=== PATIENT | female | born 1990 | race Caucasian/White ===

== ENCOUNTER 2022-04-03 19:58 | Emergency (ER) | payer BC, OTHER ==
--- NOTE | 2022-04-03 21:13 | ERPHSYRPT ---
- History of Present Illness Time Seen by Provider: 04/03/22 21:06 Source: patient, family Exam Limitations: no limitations Patient Subjective Stated Complaint: pt has moved from another city, has run out of meds and could not get in to a physician. need to get her affexor script because she has not taken taken any since the because she ran out. Triage Nursing Assessment: p is alert and oriented, states she has no suicidal or homicidal thoughts but just cannot turn her ginny off. states she feels anxious and needs her meds. Physician History: Patient is a 32-year-old white female who presents with a complaint of depression. She recently moved to this area from [facility] August 2020 she had been on Effexor 150 mg once daily she said this was very effective for her. She ran out of the Effexor 2 days ago and has had increasing problems since. She denies any suicidal or homicidal ideation. Timing/Duration: day(s) (4) Severity of Symptoms-Max: moderate Severity of Symptoms-Current: moderate Context related to: living circumstances Associated Symptoms: depressed Previous symptoms: same symptoms as today Allergies/Adverse Reactions: naproxen Allergy (Severe, Verified 09/24/13 11:34) "deadly" acetaminophen [From Darvocet-N 100] Allergy (Mild, Verified 09/24/13 11:32) codeine Allergy (Mild, Verified 09/24/13 11:32) hydromorphone HCl [From Dilaudid] Allergy (Mild, Verified 09/24/13 11:33) morphine Allergy (Mild, Verified 09/24/13 11:34) ondansetron HCl [From Zofran] Allergy (Mild, Verified 09/24/13 11:31) propoxyphene napsylate [From Darvocet-N 100] Allergy (Mild, Verified 09/24/13 11:32) sumatriptan [From Imitrex] Allergy (Mild, Verified 09/24/13 11:33) sumatriptan succinate [From Imitrex] Allergy (Mild, Verified 09/24/13 11:33) topiramate [From Topamax] Allergy (Mild, Verified 09/24/13 11:34) pregabalin [From Lyrica] Allergy (Verified 04/03/22 20:39) Home Medications: Citalopram Hydrobromide [ceLEXa] 40 mg PO DAILY 09/24/13 [History] Diazepam 5 mg [Valium 5 MG] 5 mg PO BID 09/24/13 [History] Dicyclomine HCl [Bentyl] 10 mg PO TID 09/24/13 [History] Divalproex Sodium [Depakote] 250 mg PO DAILY 09/24/13 [History] Metoprolol Tartrate 25 mg [Lopressor 25MG Tab] 25 mg PO BID 09/24/13 [History] Hx Tetanus, Diphtheria Vaccination/Date Given: No Hx Influenza Vaccination/Date Given: No Hx Pneumococcal Vaccination/Date Given: No Immunizations Up to Date: No Travel Risk - International Travel Have you traveled outside of the country in past 3 weeks: No - Coronavirus Screening Are you exhibiting any of the following symptoms?: No Close contact with a COVID-19 positive Pt in past 14-21 Days: No - Vaccine Status Have you recieved a Covid-19 vaccination: No - Past Medical History Pertinent Past Medical History: Yes Neurological History: Seizures Cardiac History: Other Musculoskeletal History: Fibromyalgia, Rheumatoid Arthritis Psycho-Social History: Anxiety, Depression, Panic Disorder Other Medical History: STILLS disease. mitral valve prolapse, with arrythmia. migraines. 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, epilepsy - Past Surgical History Past Surgical History: Yes Other Surgical History: csection, tonsillectomy - Social History Smoking Status: Never smoker Exposure to second hand smoke: No Drug Use: marijuana Patient Lives Alone: Yes - Female History Hx Last Menstrual Period: 04/03/22 Hx Now: No - Review of Systems Constitutional: No Fever, No Chills Eyes: No Symptoms Ears, Nose, & Throat: No Symptoms Respiratory: No Cough, No Dyspnea Cardiac: No Chest Pain, No Edema, No Syncope Abdominal/Gastrointestinal: No Abdominal Pain, No Nausea, No Vomiting, No Diarrhea Genitourinary Symptoms: No Dysuria Musculoskeletal: No Back Pain, No Neck Pain Skin: No Rash Neurological: No Dizziness, No Focal Weakness, No Sensory Changes Psychological: Depression Endocrine: No Symptoms All Other Systems: Reviewed and Negative - Nursing Vital Signs Nursing Vital Signs: Initial Vital Signs Temperature 97.8 F 04/03/22 20:30 Pulse Rate 105 H 04/03/22 20:30 Respiratory Rate 20 04/03/22 20:30 Blood Pressure 121/90 04/03/22 20:30 O2 Sat by Pulse Oximetry 97 04/03/22 20:30 Pain Scale Pain Intensity 5 - Physical Exam General Appearance: mild distress Eyes, Ears, Nose, Throat Exam: normal ENT inspection, moist mucous membranes Neck Exam: normal inspection, non-tender, supple Respiratory Exam: normal breath sounds, lungs clear, No respiratory distress Cardiovascular Exam: regular rate/rhythm, No edema Gastrointestinal/Abdominal Exam: soft, No tenderness, No distention Extremities Exam: normal inspection, normal range of motion, No evidence of injury, No edema Current Suicidality: denies suicide plan Neurological Exam: alert, fire chief's aide II-XII nml as tested, oriented x 3 Skin Exam: normal color, warm, dry, No rash SpO2 Interpretation: normal SpO2: 97 O2 Delivery: Room Air - Course Nursing assessment & vital signs reviewed: Yes - Progress Progress: unchanged - Departure Departure Disposition: Home Clinical Impression: Depression Condition: Stable Critical Care Time: No Referrals: SHALINI MALAVE ONLINE MARKETING COORDINATOR [Primary Care Provider] - Follow up/PCP as directed Additional Instructions: Find a primary care physician. Prescriptions: Venlafaxine HCl [Venlafaxine HCl ER] 150 mg PO DAILY 30 Days #30 cap
[2022-04-03 21:20] VITALS: BP 142/100; PULSE 107; O2SAT 98
== END 2022-04-03 21:26 | disposition home or self-care (01) ==
LOC: ED 19:58
DX: F32.A Depression, unspecified (principal); Z59.9 Problem related to housing and economic circumstances, unspecified; Z79.899 Other long term (current) drug therapy; Z28.310 Unvaccinated for COVID-19
CPT/HCPCS: 99281

== ENCOUNTER 2023-04-18 13:13 | Emergency (ER) | payer OTHER ==
[2023-04-18 13:28] VITALS: TEMP 97.5
[2023-04-18] MEDS ORDERED: Sodium Chloride 0.9% 1000 ML 1,000 ML IV STA (13:55)
[2023-04-18] MEDS ORDERED: Zofran 4 MG/2 ML VIAL IV ONE (13:55)
[2023-04-18] MEDS ORDERED: PROTONIX 40 MG IV IV ONE ×2 (13:55→14:15)
--- NOTE | 2023-04-18 14:00 | ERPHSYRPT ---
- History of Present Illness Time Seen by Provider: 04/18/23 13:19 Historian: patient Exam Limitations: no limitations Patient Subjective Stated Complaint: Pt states "I ran out of my meds a weeks ago and I think I am withdrawling." Triage Nursing Assessment: Pt presented alert and oriented X 3, skin pwd. Pt ambulates with a limp. PT wearing a walknig boot. Pt able to speak in clear full sentences. PT resting comfortably on the bed. Physician History: 33-year-old female with history of anxiety depression, hypertension presented in the ER with chief complaint of 1 week history of nausea vomiting with abdominal cramping and diarrhea. Patient reports she has been using [id number] medication with no relief and is unable to hold much down. She feels weak fatigued tired and dehydrated. Reports some epigastric discomfort/pain because of repeated vomiting. No fever or chills reported. Patient ran out of her venlafaxine almost 2 weeks ago which she was on for quite some time and she is stressed out. She denies any suicidal or homicidal ideations. She recently moved here and this is adding to her anxiety and stress. Allergies/Adverse Reactions: naproxen Allergy (Severe, Verified 09/24/13 11:34) "deadly" acetaminophen [From Darvocet-N 100] Allergy (Mild, Verified 09/24/13 11:32) codeine Allergy (Mild, Verified 09/24/13 11:32) hydromorphone HCl [From Dilaudid] Allergy (Mild, Verified 09/24/13 11:33) morphine Allergy (Mild, Verified 09/24/13 11:34) ondansetron HCl [From Zofran] Allergy (Mild, Verified 09/24/13 11:31) propoxyphene napsylate [From Darvocet-N 100] Allergy (Mild, Verified 09/24/13 11:32) sumatriptan [From Imitrex] Allergy (Mild, Verified 09/24/13 11:33) sumatriptan succinate [From Imitrex] Allergy (Mild, Verified 09/24/13 11:33) topiramate [From Topamax] Allergy (Mild, Verified 09/24/13 11:34) pregabalin [From Lyrica] Allergy (Verified 04/03/22 20:39) Home Medications: Dicyclomine HCl [Bentyl] 10 mg PO TID 09/24/13 [History] Metoprolol Tartrate 25 mg [Lopressor 25MG Tab] 25 mg PO BID 09/24/13 [History] Amlodipine Besylate 5 mg [Norvasc 5 mg] 5 mg PO DAILY 04/18/23 [History] Bupropion HCl 150 mg Sr [Wellbutrin SR 150 MG] 150 mg PO BID 04/18/23 [History] Propranolol HCl 20 mg PO DAILY 04/18/23 [History] Hx Tetanus, Diphtheria Vaccination/Date Given: No Hx Influenza Vaccination/Date Given: No Hx Pneumococcal Vaccination/Date Given: No Immunizations Up to Date: No Travel Risk - International Travel Have you traveled outside of the country in past 3 weeks: No - Coronavirus Screening Are you exhibiting any of the following symptoms?: No Close contact with a COVID-19 positive Pt in past 14-21 Days: No - Vaccine Status Have you recieved a Covid-19 vaccination: No - Review of Systems Constitutional: Fatigue, Weakness Eyes: No Symptoms Ears, Nose, & Throat: No Symptoms Respiratory: No Symptoms Cardiac: No Symptoms Abdominal/Gastrointestinal: Abdominal Pain, Nausea, Vomiting, Diarrhea Genitourinary Symptoms: No Symptoms Musculoskeletal: Myalgias Skin: No Symptoms Neurological: No Symptoms Psychological: Anxiety, Depression, No Suicidal Ideations, No Homicidal Ideations Endocrine: No Symptoms Hematologic/Lymphatic: No Symptoms Immunological/Allergic: No Symptoms - Past Medical History Pertinent Past Medical History: Yes Neurological History: Seizures Cardiac History: Other Musculoskeletal History: Fibromyalgia, Rheumatoid Arthritis Psycho-Social History: Anxiety, Depression, Panic Disorder Other Medical History: STILLS disease. mitral valve prolapse, with arrythmia. migraines. 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, epilepsy - Past Surgical History Past Surgical History: Yes Other Surgical History: csection, tonsillectomy - Social History Smoking Status: Never smoker Exposure to second hand smoke: No Drug Use: marijuana Patient Lives Alone: Yes - Female History Hx Last Menstrual Period: IUD Hx Now: (unknown) - Nursing Vital Signs Nursing Vital Signs: Initial Vital Signs Temperature 97.5 F 04/18/23 13:20 Pulse Rate 87 04/18/23 13:20 Respiratory Rate 20 04/18/23 13:20 Blood Pressure 145/115 04/18/23 13:20 O2 Sat by Pulse Oximetry 97 04/18/23 13:20 Pain Scale Pain Intensity 4 - Physical Exam General Appearance: no apparent distress, alert, anxiety Eye Exam: PERRL/EOMI, eyes nml inspection Ears, Nose, Throat Exam: normal ENT inspection, TMs normal, pharynx normal, moist mucous membranes Neck Exam: normal inspection, non-tender, supple, full range of motion Respiratory Exam: normal breath sounds, lungs clear Cardiovascular Exam: regular rate/rhythm, normal heart sounds Gastrointestinal/Abdomen Exam: soft, normal bowel sounds, tenderness (Normal tenderness upper abdomen in the epigastric area) Back Exam: normal inspection, normal range of motion Extremity Exam: normal inspection, normal range of motion, pelvis stable Neurologic Exam: alert, oriented x 3, cooperative, leasing machine tender II-XII nml as tested, No normal mood/affect SpO2 Interpretation: normal SpO2: 97 O2 Delivery: Room Air Ordered Tests: Active Orders 24 hr Category Date Time Status IV Insertion STAT Care 04/18/23 13:55 Active NPO (ED) STAT Care 04/18/23 13:55 Active ABDOMEN AND PELVIS W/0 CONTRAS [CT] Stat Exams 04/18/23 13:55 Completed CBC W DIFF Stat Lab 04/18/23 13:55 Completed CMP Stat Lab 04/18/23 13:55 Completed HCG QUALITATIVE, URINE Stat Lab 04/18/23 14:08 Completed LIPASE Stat Lab 04/18/23 13:55 Completed UA W/RFX UR CULTURE Stat Lab 04/18/23 14:08 Completed Medication Summary Discontinued Medications Generic Name Dose Route Start Last Admin Trade Name Domi PRN Reason Stop Dose Admin Sodium Chloride 1,000 mls @ 999 mls/hr 04/18/23 13:55 04/18/23 15:24 Sodium Chloride 0.9% 1000 Ml IV 04/18/23 14:55 Infused .Q1H1M STA Infusion Sodium Chloride Confirm 04/18/23 14:15 Sodium Chloride 0.9% 1000 Ml Administered 04/18/23 14:16 Dose 1,000 mls @ ud .ROUTE .STK-MED ONE Ondansetron HCl 4 mg 04/18/23 13:55 04/18/23 14:23 Ondansetron Hcl 4 Mg/2 Ml Vial IV 04/18/23 13:56 Not Given STAT ONE Ondansetron HCl Confirm 04/18/23 14:15 Ondansetron Hcl 4 Mg/2 Ml Vial Administered 04/18/23 14:16 Dose 4 mg .ROUTE .STK-MED ONE Pantoprazole Sodium 40 mg 04/18/23 13:55 04/18/23 14:19 Pantoprazole 40 Mg Vial IV 04/18/23 13:56 40 mg STAT ONE Administration Pantoprazole Sodium Confirm 04/18/23 14:15 Pantoprazole 40 Mg Vial Administered 04/18/23 14:16 Dose 40 mg IV .STK-MED ONE Lab/Rad Data: Laboratory Result Diagrams 04/18/23 13:55 04/18/23 13:55 Laboratory Results 04/18/23 04/18/23 04/18/23 Range/Units 14:08 14:08 13:55 WBC (4.0-10.5) x10^3/uL RBC (4.1-5.4) x10^6/uL Hgb (12.0-16.0) g/dL Hct (35-47) % MCV (78-100) fL MCH (26-32) pg MCHC (32-36) g/dL RDW (11.5-14.0) % Plt Count (150-450) x10^3/uL MPV (7.5-11.0) fL Gran % (36.0-66.0) % Immature Gran % (Auto) (0.00-0.4) % Nucleat RBC Rel Count (0.00-0.1) % Eos # (Auto) (0-0.5) x10^3/uL Immature Gran # (Auto) (0.00-0.03) x10^3u/L Absolute Lymphs (auto) (1.0-4.6) x10^3/uL Absolute Monos (auto) (0.0-1.3) x10^3/uL Absolute Nucleated RBC (0.00-0.01) x10^3u/L Lymphocytes % (24.0-44.0) % Monocytes % (0.0-12.0) % Eosinophils % (0.00-5.0) % Basophils % (0.0-0.4) % Absolute Granulocytes (1.4-6.9) x10^3/uL Basophils # (0-0.4) x10^3/uL Sodium 137 (137-145) mmol/L Potassium 4.0 (3.5-5.1) mmol/L Chloride 108 H (98-107) mmol/L Carbon Dioxide 21 L (22-30) mmol/L Anion Gap 11.3 (5-15) MEQ/L BUN 4 L (7-17) mg/dL Creatinine 0.63 (0.52-1.04) mg/dL Estimated GFR > 60.0 ML/MIN Glucose 103 (74-106) mg/dL Calcium 8.4 (8.4-10.2) mg/dL Total Bilirubin 0.60 (0.2-1.3) mg/dL AST 22 (14-36) U/L ALT 17 (0-35) U/L Alkaline Phosphatase 106 (38-126) U/L Serum Total Protein 6.8 (6.3-8.2) g/dL Albumin 3.9 (3.5-5.0) g/dL Lipase 81 (23-300) U/L Urine Color Yellow (Yellow) Urine Appearance Clear (Clear) Urine pH 7.0 (4.6-8.0) Ur Specific [place] <=1.005 (1.005-1.030) Urine Protein Negative (Negative) Urine Glucose (UA) Negative (Negative) mg/dL Urine Ketones 15 A (Negative) Urine Blood Negative (Negative) Urine Nitrite Negative (Negative) Urine Bilirubin Negative (Negative) Urine Urobilinogen 0.2 (0.2) mg/dL Ur Leukocyte Esterase Negative (Negative) U Hyaline Cast (Auto) NONE SEEN (0-2) /LPF Urine Microscopic RBC 0-2 (0-5) /HPF Urine Microscopic WBC 0-2 (0-5) /HPF Ur Epithelial Cells Rare (None Seen) /HPF Urine Bacteria None Seen (None Seen) /HPF Urine Culture Reflexed NO (NO) Urine HCG, Qual NEGATIVE (NEGATIVE) 04/18/23 Range/Units 13:55 WBC 8.9 (4.0-10.5) x10^3/uL RBC 4.56 (4.1-5.4) x10^6/uL Hgb 13.9 (12.0-16.0) g/dL Hct 41.5 (35-47) % MCV 91.0 (78-100) fL MCH 30.5 (26-32) pg MCHC 33.5 (32-36) g/dL RDW 12.1 (11.5-14.0) % Plt Count 382 (150-450) x10^3/uL MPV 9.6 (7.5-11.0) fL Gran % 64.5 (36.0-66.0) % Immature Gran % (Auto) 0.3 (0.00-0.4) % Nucleat RBC Rel Count 0.0 (0.00-0.1) % Eos # (Auto) 0.16 (0-0.5) x10^3/uL Immature Gran # (Auto) 0.03 (0.00-0.03) x10^3u/L Absolute Lymphs (auto) 2.46 (1.0-4.6) x10^3/uL Absolute Monos (auto) 0.45 (0.0-1.3) x10^3/uL Absolute Nucleated RBC 0.00 (0.00-0.01) x10^3u/L Lymphocytes % 27.8 (24.0-44.0) % Monocytes % 5.1 (0.0-12.0) % Eosinophils % 1.8 (0.00-5.0) % Basophils % 0.5 (0.0-0.4) % Absolute Granulocytes 5.72 (1.4-6.9) x10^3/uL Basophils # 0.04 (0-0.4) x10^3/uL Sodium (137-145) mmol/L Potassium (3.5-5.1) mmol/L Chloride (98-107) mmol/L Carbon Dioxide (22-30) mmol/L Anion Gap (5-15) MEQ/L BUN (7-17) mg/dL Creatinine (0.52-1.04) mg/dL Estimated GFR ML/MIN Glucose (74-106) mg/dL Calcium (8.4-10.2) mg/dL Total Bilirubin (0.2-1.3) mg/dL AST (14-36) U/L ALT (0-35) U/L Alkaline Phosphatase (38-126) U/L Serum Total Protein (6.3-8.2) g/dL Albumin (3.5-5.0) g/dL Lipase (23-300) U/L Urine Color (Yellow) Urine Appearance (Clear) Urine pH (4.6-8.0) Ur Specific [place] (1.005-1.030) Urine Protein (Negative) Urine Glucose (UA) (Negative) mg/dL Urine Ketones (Negative) Urine Blood (Negative) Urine Nitrite (Negative) Urine Bilirubin (Negative) Urine Urobilinogen (0.2) mg/dL Ur Leukocyte Esterase (Negative) U Hyaline Cast (Auto) (0-2) /LPF Urine Microscopic RBC (0-5) /HPF Urine Microscopic WBC (0-5) /HPF Ur Epithelial Cells (None Seen) /HPF Urine Bacteria (None Seen) /HPF Urine Culture Reflexed (NO) Urine HCG, Qual (NEGATIVE) - Progress Progress: improved Progress Note: 04/18/23 14:00 33-year-old female with history of anxiety depression, hypertension presented in the ER with chief complaint of 1 week history of nausea vomiting with abdominal cramping and diarrhea. Patient reports she has been using [id number] medication with no relief and is unable to hold much down. She feels weak fatigued tired and dehydrated. Reports some epigastric discomfort/pain because of repeated vomiting. No fever or chills reported. Patient ran out of her venlafaxine almost 2 weeks ago which she was on for quite some time and she is stressed out. She denies any suicidal or homicidal ideations. She recently moved here and this is adding to her anxiety and stress. 04/18/23 17:18 [id number] vc Counseled pt/family regarding: lab results, diagnosis, need for follow-up, rad results, smoking cessation Medical Desision Making - Independent Historian Additional History obtained from: Spouse, Mother - Diagnostic Testing Radiological Interpretation: Reviewed by me - Risk of complications The pt has a mod risk of morbidity or mortality based on: Need for prescription drug management - Departure Departure Disposition: Home Clinical Impression: Gastroenteritis, Anxiety Condition: Stable Critical Care Time: No Referrals: SHALINI MALAVE VOCATIONAL EDUCATION TEACHER [Primary Care Provider] - Follow up with PCP 1 day Instructions: Abdominal pain Additional Instructions: Drink plenty of fluids. Take Phenergan as needed. Follow-up with primary care for reevaluation. Return to ER for any worsening. Prescriptions: Promethazine HCl 25 mg [Phenergan 25 mg] 25 mg PO Q8H PRN PRN 5 Days #10 tablet PRN Reason: Vomiting
[2023-04-18 14:10] LABS: Absolute Neutrophil Ct (ANC) 5.72 x10^3/uL (1.4-6.9); BASOPHIL % 0.5 % (0.0-0.4); Basophil (Absolute #) 0.04 x10^3/uL (0-0.4); Eosinophil % 1.8 % (0.00-5.0); Eosinophil (Absolute #) 0.16 x10^3/uL (0-0.5); Hematocrit 41.5 % (35-47); Hemoglobin 13.9 g/dL (12.0-16.0); IMMATURE GRAN # 0.03 x10^3u/L (0.00-0.03); IMMATURE GRAN % 0.3 % (0.00-0.4); Lymphocyte (Absolute #) 2.46 x10^3/uL (1.0-4.6); Lymphocytes % 27.8 % (24.0-44.0); Mean Corpuscular Hemoglobin 30.5 pg (26-32); Mean Corpuscular Hgb Concent. 33.5 g/dL (32-36); Mean Platelet Volume 9.6 fL (7.5-11.0); Monocyte (Absolute #) 0.45 x10^3/uL (0.0-1.3); Monocytes % 5.1 % (0.0-12.0); Neutrophil % 64.5 % (36.0-66.0); Platelet Count 382 x10^3/uL (150-450); Red Blood Count 4.56 x10^6/uL (4.1-5.4); Red Cell Distribution Width 12.1 % (11.5-14.0); White Blood Count 8.9 x10^3/uL (4.0-10.5)
[2023-04-18] MEDS ORDERED: Zofran 4 MG/2 ML VIAL ONE (14:15)
[2023-04-18] MEDS ORDERED: Sodium Chloride 0.9% 1000 ML 1,000 ML ONE (14:15)
[2023-04-18 14:25] LABS: ALBUMIN 3.9 g/dL (3.5-5.0); ALKALINE PHOSPHATASE 106 U/L (38-126); ANION GAP 11.3 MEQ/L (5-15); BLOOD UREA NITROGEN 4 mg/dL (7-17); CHLORIDE 108 mmol/L (98-107); Calcium 8.4 mg/dL (8.4-10.2); Carbon Dioxide 21 mmol/L (22-30); Creatinine 1 0.63 mg/dL (0.52-1.04); EST GLOMERULAR FILTRATION RATE > 60.0 ML/MIN; Glucose 103 mg/dL (74-106); LIPASE 81 U/L (23-300); SGOT/AST 22 U/L (14-36); SGPT/ALT 17 U/L (0-35); SODIUM 137 mmol/L (137-145); Total Protein 6.8 g/dL (6.3-8.2)
[2023-04-18 15:08] LABS: HCG URINE TEST NEGATIVE (NEGATIVE)
[2023-04-18 15:11] LABS: Appearance Clear (Clear); Bacteria None Seen /HPF (None Seen); Bilirubin Negative (Negative); Blood Negative (Negative); Epithelial Cells Rare /HPF (None Seen); Glucose, Urine Negative (Negative); Hyaline Casts NONE SEEN /LPF (0-2); Ketones 15 (Negative); Leukocyte Esterase Negative (Negative); Nitrite Negative (Negative); Protein,Urine Dip Negative (Negative); RBC 0-2 /HPF (0-5); Specific Gravity <=1.005 (1.005-1.030); Urobilinogen 0.2 mg/dL (0.2); WBC 0-2 /HPF (0-5)
[2023-04-18 15:12] LABS: ADD URINE CULTURE? NO (NO)
[2023-04-18 16:08] VITALS: BP 143/94; PULSE 97; RESP 18
--- NOTE | 2023-04-18 16:27 | XRAY ---
Indication: Vomiting and mid abdomen pain. History IBS. Multiple contiguous axial images obtained through the abdomen and pelvis without contrast. Comparison: None Lung bases clear. Heart not enlarged. Noncontrasted stomach and bowel loops appear nonobstructed. Normal appearing terminal ileum and appendix. No abnormal bowel wall thickening or free fluid/air. Uterus demonstrates IUD in situ. Remaining liver, gallbladder, pancreas, spleen, adrenal glands, kidneys, ureters, bladder, uterus, and aorta are unremarkable for noncontrast exam. Osseous structures intact. Impression: CT abdomen/pelvis without contrast exam is negative.
[2023-04-18 17:23] VITALS: O2SAT 97
== END 2023-04-18 17:34 | disposition home or self-care (01) ==
LOC: ED 13:13
DX: K52.9 Noninfective gastroenteritis and colitis, unspecified (principal); F41.9 Anxiety disorder, unspecified; R11.2 Nausea with vomiting, unspecified; R10.9 Unspecified abdominal pain; R53.1 Weakness; I10 Essential (primary) hypertension; Z79.899 Other long term (current) drug therapy; Z28.310 Unvaccinated for COVID-19
CPT/HCPCS: 36415; 74176; 80053; 81001; 81025; 83690; 85025; 96360; 96374; 99284; J2405

== ENCOUNTER 2024-02-23 18:30 | Emergency (ER) | payer OTHER ==
[2024-02-23 18:46] VITALS: TEMP 98
--- NOTE | 2024-02-23 18:49 | ERPHSYRPT ---
- History of Present Illness Source: patient, EMS Exam Limitations: no limitations Timing/Duration: today Severity: moderate Character of Deficits: none Deficits: no difficulties Baseline/Normal Cognition: alert oriented x 3 Current Cognition: alert oriented x 3 Associated Symptoms: denies symptoms Hx Tetanus, Diphtheria Vaccination/Date Given: No Hx Influenza Vaccination/Date Given: No Hx Pneumococcal Vaccination/Date Given: No <CONY,RENUKA - Last Filed: 02/23/24 18:50> <DEVYN THOMPSON - Last Filed: 02/23/24 20:51> - History of Present Illness Time Seen by Provider: 02/23/24 18:45 Physician History: Patient is 33-year-old female with significant past medical history of 2 para 1 with history of preeclamptic seizure with her first , recently she found out she is approximately 5 to 6 weeks . Obstetric ultrasound was done couple days ago and which did not show any heart sounds or an empty sac. Patient was in her usual state of health suddenly she developed seizure activity at home approximately an hour ago so ambulance was called in when ambulance picked her up she was not having any seizure they started her on magnesium rider 4 g IV and they brought her into the emergency room in the emergency room patient was alert awake oriented to time place and person blood pressure was 127/95 her blood pressure was reported high in the ambulance. Patient denies any other symptoms. Patient is able to answer all the questions. Patient denies any vaginal bleeding or any abdominal cramps. (CONY,RENUKA) Allergies/Adverse Reactions: naproxen Allergy (Severe, Verified 02/23/24 18:34) "deadly" acetaminophen [From Darvocet-N 100] Allergy (Mild, Verified 02/23/24 18:34) codeine Allergy (Mild, Verified 02/23/24 18:34) hydromorphone HCl [From Dilaudid] Allergy (Mild, Verified 02/23/24 18:34) morphine Allergy (Mild, Verified 02/23/24 18:34) ondansetron HCl [From Zofran] Allergy (Mild, Verified 02/23/24 18:34) propoxyphene napsylate [From Darvocet-N 100] Allergy (Mild, Verified 02/23/24 18:34) sumatriptan [From Imitrex] Allergy (Mild, Verified 02/23/24 18:34) sumatriptan succinate [From Imitrex] Allergy (Mild, Verified 02/23/24 18:34) topiramate [From Topamax] Allergy (Mild, Verified 02/23/24 18:34) pregabalin [From Lyrica] Allergy (Verified 02/23/24 18:34) Home Medications: Venlafaxine HCl 75 mg PO HS 02/23/24 [History] - Review of Systems Constitutional: No Fever, No Chills Eyes: No Symptoms Ears, Nose, & Throat: No Symptoms Respiratory: No Cough, No Dyspnea Cardiac: No Chest Pain, No Edema, No Syncope Abdominal/Gastrointestinal: No Abdominal Pain, No Nausea, No Vomiting, No Diarrhea Genitourinary Symptoms: No Dysuria Musculoskeletal: No Back Pain, No Neck Pain Skin: No Rash Neurological: Headache, Seizure, No Dizziness, No Focal Weakness, No Sensory Changes Psychological: No Symptoms Endocrine: No Symptoms All Other Systems: Reviewed and Negative <CONY,RENUKA - Last Filed: 02/23/24 18:50> - Past Medical History Pertinent Past Medical History: Yes Neurological History: Seizures Cardiac History: Other Musculoskeletal History: Fibromyalgia, Rheumatoid Arthritis Psycho-Social History: Anxiety, Depression, Panic Disorder Other Medical History: STILLS disease. mitral valve prolapse, with arrythmia. migraines. 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, epilepsy - Past Surgical History Past Surgical History: Yes Other Surgical History: csection, tonsillectomy - Social History Smoking Status: Never smoker Exposure to second hand smoke: No Drug Use: marijuana Patient Lives Alone: Yes <CONY,RENUKA - Last Filed: 02/23/24 18:50> - Wanda Coma Scale Best Eye Response ([place]): (4) open spontaneously Best Verbal Response (Wanda): (5) oriented Best Motor Response (Wanda): (6) obeys commands Wanda Total: 15 - Physical Exam General Appearance: no apparent distress, alert Eye Exam: bilateral eye: PERRL, EOMI Ears, Nose, Throat Exam: normal ENT inspection, moist mucous membranes Neck Exam: normal inspection, non-tender, supple Respiratory: normal breath sounds, lungs clear, airway intact, No respiratory distress Cardiovascular: regular rate/rhythm, No edema Gastrointestinal: soft, No tenderness, No distention Back Exam: normal inspection Extremity Exam: normal inspection, No pedal edema Mental Status: alert, oriented x 3 production line mechanic Exam: tongue midline Coordination/Gait: normal finger to nose, normal gait Skin Exam: normal color, warm, dry, No rash <CONY,RENUKA - Last Filed: 02/23/24 18:50> - Nursing Vital Signs Nursing Vital Signs: Initial Vital Signs Temperature 98 F 02/23/24 18:36 Pulse Rate 101 H 02/23/24 18:36 Respiratory Rate 18 02/23/24 18:36 Blood Pressure 127/95 02/23/24 18:36 O2 Sat by Pulse Oximetry 100 02/23/24 18:36 Pain Scale Pain Intensity 6 - Course Nursing assessment & vital signs reviewed: Yes <CONY,RENUKA - Last Filed: 02/23/24 18:50> Ordered Tests: Active Orders 24 hr Category Date Time Status Legal Manager STAT Care 02/23/24 18:47 Active Clean Catch Urine Specimen STAT Care 02/23/24 18:47 Active EKG-ER Only STAT Care 02/23/24 18:47 Active IV Insertion STAT Care 02/23/24 18:46 Active IV Insertion-2nd Peripheral STAT Care 02/23/24 18:46 Active HEAD WITHOUT CONTRAST [CT] Stat Exams 02/23/24 19:21 Completed CBC W DIFF Stat Lab 02/23/24 18:54 Completed CMP Stat Lab 02/23/24 18:54 Completed HCG QUALITATIVE, SERUM Stat Lab 02/23/24 18:54 Completed HCG, Quantitative (Inhouse) Stat Lab 02/23/24 18:54 Completed UA W/RFX UR CULTURE Stat Lab 02/23/24 19:37 Completed Urine Triage Profile Stat Lab 02/23/24 19:37 Completed Medication Summary Discontinued Medications Generic Name Dose Route Start Last Admin Trade Name Freq PRN Reason Stop Dose Admin Sodium Chloride 1,000 mls @ 999 mls/hr 02/23/24 18:36 02/23/24 19:58 Sodium Chloride 0.9% 1000 Ml IV 02/23/24 19:36 Infused .Q1H1M STA Infusion Sodium Chloride Confirm 02/23/24 18:56 Sodium Chloride 0.9% 1000 Ml Administered 02/23/24 18:57 Dose 1,000 mls @ ud .ROUTE .STK-MED ONE Labetalol HCl 5 mg 02/23/24 20:14 02/23/24 20:24 Labetalol Hcl 20 Mg/4 Ml Disp.Syringe IV 02/23/24 20:15 5 mg STAT ONE Administration Labetalol HCl Confirm 02/23/24 20:24 Labetalol Hcl 20 Mg/4 Ml Disp.Syringe Administered 02/23/24 20:25 Dose 20 mg IV .STK-MED ONE Lab/Rad Data: Laboratory Result Diagrams 02/23/24 18:54 02/23/24 18:54 Laboratory Results 02/23/24 02/23/24 02/23/24 Range/Units 19:37 19:37 18:54 WBC (3.98-10.04) x10^3/uL RBC (3.93-5.22) x10^6/uL Hgb (11.2-15.7) g/dL Hct (34.1-44.9) % MCV (79.4-94.8) fL MCH (25.6-32.2) pg MCHC (32.2-35.5) g/dL RDW (11.7-14.4) % Plt Count (182-369) x10^3/uL MPV (9.4-12.3) fL Gran % (34.0-71.1) % Immature Gran % (Auto) (0.001-0.429) % Nucleat RBC Rel Count (0.00-0.2) % Eos # (Auto) (0.04-0.36) x10^3/uL Immature Gran # (Auto) (0.001-0.031) x10^3u/L Absolute Lymphs (auto) (1.18-3.74) x10^3/uL Absolute Monos (auto) (0.24-0.86) x10^3/uL Absolute Nucleated RBC (0.00-0.012) x10^3u/L Lymphocytes % (19.3-51.7) % Monocytes % (4.7-12.5) % Eosinophils % (0.7-5.8) % Basophils % (0.1-1.2) % Absolute Granulocytes (1.56-6.13) x10^3/uL Basophils # (0.01-0.08) x10^3/uL Sodium (135-145) mmol/L Potassium (3.5-5.1) mmol/L Chloride (98-107) mmol/L Carbon Dioxide (22-30) mmol/L Anion Gap (5-15) MEQ/L BUN (7-17) mg/dL Creatinine (0.52-1.04) mg/dL Estimated GFR ML/MIN Glucose (74-106) mg/dL Calcium (8.4-10.2) mg/dL Total Bilirubin (0.2-1.3) mg/dL AST (14-36) U/L ALT (0-35) U/L Alkaline Phosphatase (38-126) U/L Serum Total Protein (6.3-8.2) g/dL Albumin (3.5-5.0) g/dL Serum HCG, Qual POSITIVE (NEGATIVE) Beta HCG, Quant mIU/ml Urine Color Yellow (Yellow) Urine Appearance Clear (Clear) Urine pH 6.0 (4.6-8.0) Ur Specific [place] <=1.005 (1.005-1.030) Urine Protein Negative (Negative) Urine Glucose (UA) Negative (Negative) mg/dL Urine Ketones Trace A (Negative) Urine Blood Large A (Negative) Urine Nitrite Negative (Negative) Urine Bilirubin Negative (Negative) Urine Urobilinogen 0.2 (0.2) mg/dL Ur Leukocyte Esterase Negative (Negative) U Hyaline Cast (Auto) NONE SEEN (0-2) /LPF Urine Microscopic RBC 3-5 (0-5) /HPF Urine Microscopic WBC 0-2 (0-5) /HPF Ur Epithelial Cells None Seen (None Seen) /HPF Urine Bacteria None Seen (None Seen) /HPF Urine Culture Reflexed NO (NO) Urine Opiates Level NEGATIVE (NEGATIVE) Ur Methadone NEGATIVE (NEGATIVE) Urine Barbiturates NEGATIVE (NEGATIVE) Ur Phencyclidine (PCP) NEGATIVE (NEGATIVE) Urine Amphetamine NEGATIVE (NEGATIVE) U Benzodiazepine Level NEGATIVE (NEGATIVE) Urine Cocaine NEGATIVE (NEGATIVE) Urine Marijuana (THC) POSITIVE A (NEGATIVE) 02/23/24 02/23/24 Range/Units 18:54 18:54 WBC 13.4 H (3.98-10.04) x10^3/uL RBC 4.23 (3.93-5.22) x10^6/uL Hgb 12.9 (11.2-15.7) g/dL Hct 37.7 (34.1-44.9) % MCV 89.1 (79.4-94.8) fL MCH 30.5 (25.6-32.2) pg MCHC 34.2 (32.2-35.5) g/dL RDW 12.4 (11.7-14.4) % Plt Count 381 H (182-369) x10^3/uL MPV 8.9 L (9.4-12.3) fL Gran % 68.8 (34.0-71.1) % Immature Gran % (Auto) 0.3 (0.001-0.429) % Nucleat RBC Rel Count 0.0 (0.00-0.2) % Eos # (Auto) 0.17 (0.04-0.36) x10^3/uL Immature Gran # (Auto) 0.04 H (0.001-0.031) x10^3u/L Absolute Lymphs (auto) 3.15 (1.18-3.74) x10^3/uL Absolute Monos (auto) 0.77 (0.24-0.86) x10^3/uL Absolute Nucleated RBC 0.00 (0.00-0.012) x10^3u/L Lymphocytes % 23.6 (19.3-51.7) % Monocytes % 5.8 (4.7-12.5) % Eosinophils % 1.3 (0.7-5.8) % Basophils % 0.2 (0.1-1.2) % Absolute Granulocytes 9.21 H (1.56-6.13) x10^3/uL Basophils # 0.03 (0.01-0.08) x10^3/uL Sodium 135 (135-145) mmol/L Potassium 3.4 L (3.5-5.1) mmol/L Chloride 107 (98-107) mmol/L Carbon Dioxide 20 L (22-30) mmol/L Anion Gap 11.6 (5-15) MEQ/L BUN 10 (7-17) mg/dL Creatinine 0.56 (0.52-1.04) mg/dL Estimated GFR 125.1 ML/MIN Glucose 115 H (74-106) mg/dL Calcium 9.0 (8.4-10.2) mg/dL Total Bilirubin 0.50 (0.2-1.3) mg/dL AST 21 (14-36) U/L ALT 15 (0-35) U/L Alkaline Phosphatase 81 (38-126) U/L Serum Total Protein 6.6 (6.3-8.2) g/dL Albumin 3.8 (3.5-5.0) g/dL Serum HCG, Qual (NEGATIVE) Beta HCG, Quant 33897 mIU/ml Urine Color (Yellow) Urine Appearance (Clear) Urine pH (4.6-8.0) Ur Specific [place] (1.005-1.030) Urine Protein (Negative) Urine Glucose (UA) (Negative) mg/dL Urine Ketones (Negative) Urine Blood (Negative) Urine Nitrite (Negative) Urine Bilirubin (Negative) Urine Urobilinogen (0.2) mg/dL Ur Leukocyte Esterase (Negative) U Hyaline Cast (Auto) (0-2) /LPF Urine Microscopic RBC (0-5) /HPF Urine Microscopic WBC (0-5) /HPF Ur Epithelial Cells (None Seen) /HPF Urine Bacteria (None Seen) /HPF Urine Culture Reflexed (NO) Urine Opiates Level (NEGATIVE) Ur Methadone (NEGATIVE) Urine Barbiturates (NEGATIVE) Ur Phencyclidine (PCP) (NEGATIVE) Urine Amphetamine (NEGATIVE) U Benzodiazepine Level (NEGATIVE) Urine Cocaine (NEGATIVE) Urine Marijuana (THC) (NEGATIVE) - Progress Counseled pt/family regarding: lab results, diagnosis, need for follow-up, rad results <DEVYN THOMPSON - Last Filed: 02/23/24 20:51> - Progress Progress Note: 02/23/24 19:50 I did have a discussion with the patient's manufacturer representative, Dr. Mckeon. I reviewed the patient history, patient presenting complaint. Patient is well-known to him. He meets with them this coming and they will review the u ltrasound results that was performed on 02/21/2024. He did state that the patient has chronic, intermittent seizures. Patient admits she has not seen a neurologist in quite some time. Patient states that she has been tried on several different medications to help control her seizures and she is allergic to almost every 1. The patient's manufacturer representative states to go ahead and proceed with a CT scan of the head as the ultrasound possibly shows a pending miscarriage. I discussed this with the patient and her significant other. I did discuss the risk benefits alternatives. I did explain to her that she could decline the CT scan of the head if she desired. However, she wants to go ahead and proceed with the CT scan of the head. 02/23/24 20:48 CT scan head interpreted by radiologist and I reviewed the impression. Impression states no acute intracranial abnormality or space-occupying lesions. (DEVYN THOMPSON) Medical Desision Making - Independent Historian Additional History obtained from: Family - Diagnostic Testing Radiological Interpretation: Reviewed by me, Teleradiologist Report - Risk of complications Low Risk: Low risk of morbidity from additional dx testing or treatment <DEVYN THOMPSON - Last Filed: 02/23/24 20:51> <RENUKA DONNELLY - Last Filed: 02/23/24 18:50> - Departure Critical Care Time: No <DEVYN THOMPSON - Last Filed: 02/23/24 20:51> - Departure Clinical Impression: Vaginal bleeding during , Seizure, Hypertension Condition: Stable Referrals: SHALINI MALAVE JOURNALISM PROFESSOR [Primary Care Provider] - Follow up/PCP as directed Additional Instructions: Drink plenty of fluids. Keep your appointment to see your manufacturer representative on 02/27/2024.
[2024-02-23] MEDS ORDERED: Sodium Chloride 0.9% 1000 ML 1,000 ML ONE (18:56)
[2024-02-23 18:57] LABS: Absolute Neutrophil Ct (ANC) 9.21 x10^3/uL (1.56-6.13); BASOPHIL % 0.2 % (0.1-1.2); Basophil (Absolute #) 0.03 x10^3/uL (0.01-0.08); Eosinophil % 1.3 % (0.7-5.8); Eosinophil (Absolute #) 0.17 x10^3/uL (0.04-0.36); Hematocrit 37.7 % (34.1-44.9); Hemoglobin 12.9 g/dL (11.2-15.7); IMMATURE GRAN # 0.04 x10^3u/L (0.001-0.031); IMMATURE GRAN % 0.3 % (0.001-0.429); Lymphocyte (Absolute #) 3.15 x10^3/uL (1.18-3.74); Lymphocytes % 23.6 % (19.3-51.7); Mean Cell Volume 89.1 fL (79.4-94.8); Mean Corpuscular Hemoglobin 30.5 pg (25.6-32.2); Mean Corpuscular Hgb Concent. 34.2 g/dL (32.2-35.5); Mean Platelet Volume 8.9 fL (9.4-12.3); Monocyte (Absolute #) 0.77 x10^3/uL (0.24-0.86); Monocytes % 5.8 % (4.7-12.5); Neutrophil % 68.8 % (34.0-71.1); Platelet Count 381 x10^3/uL (182-369); Red Blood Count 4.23 x10^6/uL (3.93-5.22); Red Cell Distribution Width 12.4 % (11.7-14.4); White Blood Count 13.4 x10^3/uL (3.98-10.04)
[2024-02-23] MEDS: Sodium Chloride 0.9% 1000 ML 1,000 ML IV STA (18:57)
[2024-02-23 19:18] LABS: HCG SERUM TEST POSITIVE (NEGATIVE)
[2024-02-23 19:30] LABS: ALBUMIN 3.8 g/dL (3.5-5.0); ANION GAP 11.6 MEQ/L (5-15); BILIRUBIN,TOTAL 0.5 mg/dL (0.2-1.3); Creatinine 1 0.56 mg/dL (0.52-1.04); EST GLOMERULAR FILTRATION RATE 125.1 ML/MIN; Potassium 3.4 mmol/L (3.5-5.1); Total Protein 6.6 g/dL (6.3-8.2)
[2024-02-23 19:54] LABS: ADD URINE CULTURE? NO (NO); Appearance Clear (Clear); Bacteria None Seen /HPF (None Seen); Bilirubin Negative (Negative); Blood Large (Negative); Epithelial Cells None Seen /HPF (None Seen); Glucose, Urine Negative (Negative); Hyaline Casts NONE SEEN /LPF (0-2); Ketones Trace (Negative); Leukocyte Esterase Negative (Negative); Nitrite Negative (Negative); Protein,Urine Dip Negative (Negative); Specific Gravity <=1.005 (1.005-1.030); Urobilinogen 0.2 mg/dL (0.2); WBC 0-2 /HPF (0-5)
[2024-02-23 20:00] LABS: Amphetamine,Urine NEGATIVE (NEGATIVE); Barbiturate,Urine NEGATIVE (NEGATIVE); Benzodiazepine,Urine NEGATIVE (NEGATIVE); Cocaine,Urine NEGATIVE (NEGATIVE); Methadone,Urine NEGATIVE (NEGATIVE); Opiate,Urine NEGATIVE (NEGATIVE); PCP,Urine NEGATIVE (NEGATIVE); THC,Urine POSITIVE (NEGATIVE)
[2024-02-23] MEDS: TRANDATE 20 MG/4 ML SYRINGE IV ONE (20:24)
[2024-02-23] MEDS ORDERED: TRANDATE 20 MG/4 ML SYRINGE IV ONE (20:24)
--- NOTE | 2024-02-23 20:44 | XRAY ---
CLINICAL HISTORY: Seizure COMPARISON: None. TECHNIQUE: Contiguous, multislice, non-contrast CT scan of the brain was performed in axial plane in bony and soft tissue windows with multiplanar reconstructions. One of the following dose-reduction techniques was utilized for this exam. Automated exposure control, adjustment of the mA and/or kV according to patient size, and use of iterative reconstruction. Total exam DLP-923.71 mGy.cm.; CTDI- 53.92 mGy FINDINGS: There is normal pathak and white matter differentiation. No acute territorial infarct, bleed, mass effect, or hydrocephalus. No intracranial space-occupying lesion was noted. No midline shift. There is no mass lesion in either CP angle. Posterior fossa structures appear normal. The IACs are unremarkable. The skull bones appear normal. Visualized paranasal sinuses show mild focal mucosal thickening in the left ethmoidal sinus. Deviated nasal septum towards the right side. Lona bullosae in both middle turbinates. Left middle and inferior turbinates appear hypertrophied. Mastoid air cells are well-pneumatized. IMPRESSION: 1. No acute intracranial abnormality. 2. No intracranial space-occupying lesion. 3. If Clinically needed, MRI with contrast may be recommended for further evaluation. Electronically Signed by: Andre Craft MD. (02/23/2024 20:39:49 EDT)
[2024-02-23 21:08] VITALS: BP 141/103; PULSE 95; RESP 17; O2SAT 98
== END 2024-02-23 21:20 | disposition home or self-care (01) ==
LOC: ED 18:30
DX: O67.9 Intrapartum hemorrhage, unspecified (principal); Z3A.01 Less than 8 weeks gestation of pregnancy; O99.351 Diseases of the nervous system complicating pregnancy, first trimester; G40.909 Epilepsy, unspecified, not intractable, without status epilepticus; O16.1 Unspecified maternal hypertension, first trimester; Z79.899 Other long term (current) drug therapy
CPT/HCPCS: 36000; 36415; 70450; 80053; 80307; 81001; 84702; 84703; 85025; 93005; 93041; 96374; 99284

== ENCOUNTER 2024-03-04 14:46 | Emergency (ER) | payer OTHER ==
--- NOTE | 2024-03-04 14:51 | ERPHSYRPT ---
- History of Present Illness Time Seen by Provider: 03/04/24 14:51 Historian: patient Exam Limitations: no limitations Physician History: This is a 33-year-old white female patient who is approximately 7 weeks per her estimation based on the last menstrual period of 01/09/2024. Her primary care provider is nurse practitioner Swati and her transformer maker is Dr. Mckeon. Patient states that she has been vomiting daily ever since she was . She denies chest pain. She denies abdominal pain. She denies vaginal discharge. She has had no vaginal bleeding. She has no shortness of breath. She denies cough. Her transformer maker sent her here for IV fluid infusion. Timing/Duration: day(s), worse Activities at Onset: none Quality: other (Generalized mild discomfort) Abdominal Pain Onset Location: generalized abdomen Pain Radiation: no radiation Severity of Pain-Max: mild Severity of Pain-Current: mild Associated Symptoms: diarrhea, loss of appetite, nausea, vomiting, weakness, No chest pain, No fever/chills, No neck pain, No shortness of breath Previous symptoms: no prior history, no recent treatment Allergies/Adverse Reactions: naproxen Allergy (Severe, Verified 03/04/24 15:04) "deadly" acetaminophen [From Darvocet-N 100] Allergy (Mild, Verified 03/04/24 15:04) codeine Allergy (Mild, Verified 03/04/24 15:04) hydromorphone HCl [From Dilaudid] Allergy (Mild, Verified 03/04/24 15:04) morphine Allergy (Mild, Verified 03/04/24 15:04) ondansetron HCl [From Zofran] Allergy (Mild, Verified 03/04/24 15:04) propoxyphene napsylate [From Darvocet-N 100] Allergy (Mild, Verified 03/04/24 15:04) sumatriptan [From Imitrex] Allergy (Mild, Verified 03/04/24 15:04) sumatriptan succinate [From Imitrex] Allergy (Mild, Verified 03/04/24 15:04) topiramate [From Topamax] Allergy (Mild, Verified 03/04/24 15:04) pregabalin [From Lyrica] Allergy (Verified 03/04/24 15:04) Home Medications: Venlafaxine HCl 75 mg PO HS 02/23/24 [History] Folic Acid 1 mg [Folate 1 mg] 1 mg PO DAILY 03/04/24 [History] Pnv No.95/Ferrous Fum/Folic AC [ Vitamins Tablet] 1 tab PO DAILY 03/04/24 [History] Hx Tetanus, Diphtheria Vaccination/Date Given: No Hx Influenza Vaccination/Date Given: No Hx Pneumococcal Vaccination/Date Given: No Travel Risk - International Travel Have you traveled outside of the country in past 3 weeks: No - Emerging Infectious Disease Are you exhibiting symptoms associated with any current EIDs: Yes Symptoms: Abdominal Pain, Diarrhea, Vomitting - Review of Systems Constitutional: Weakness Eyes: No Symptoms Ears, Nose, & Throat: No Symptoms Respiratory: No Symptoms Cardiac: No Symptoms Abdominal/Gastrointestinal: Abdominal Pain, Nausea, Vomiting, Diarrhea, Appetite Changes, No Constipation Genitourinary Symptoms: No Symptoms Musculoskeletal: No Symptoms Skin: No Symptoms Neurological: No Symptoms Psychological: No Symptoms Endocrine: No Symptoms Hematologic/Lymphatic: No Symptoms Immunological/Allergic: No Symptoms All Other Systems: Reviewed and Negative - Past Medical History Pertinent Past Medical History: Yes Neurological History: Seizures Cardiac History: Other Musculoskeletal History: Fibromyalgia, Rheumatoid Arthritis Psycho-Social History: Anxiety, Depression, Panic Disorder Other Medical History: STILLS disease. mitral valve prolapse, with arrythmia. migraines. 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, epilepsy - Past Surgical History Past Surgical History: Yes Musculoskeletal: Other Female Surgical History: Section Other Surgical History: csection, tonsillectomy - Female History Hx Last Menstrual Period: Approx January 09, 2024 - Social History Smoking Status: Never smoker Exposure to second hand smoke: No Drug Use: marijuana Patient Lives Alone: Yes - Social Determinants of Health Will the patient participate in the screening: Yes Do you worry about a steady place to live?: No In the past 12 months,have you had to go without utilities?: No Transportation Issues: No Has anyone in your support network made you feel unsafe?: No Have you or anyone in your house had to go without enough: No - Nursing Vital Signs Nursing Vital Signs: Initial Vital Signs Temperature 98.1 F 03/04/24 14:53 Pulse Rate 84 03/04/24 14:53 Blood Pressure 147/97 03/04/24 14:53 O2 Sat by Pulse Oximetry 98 03/04/24 14:53 Pain Scale Pain Intensity 4 - Physical Exam General Appearance: no apparent distress, alert, anxiety Eye Exam: PERRL/EOMI, eyes nml inspection Ears, Nose, Throat Exam: normal ENT inspection, moist mucous membranes Neck Exam: normal inspection, non-tender, supple, full range of motion Respiratory Exam: normal breath sounds, lungs clear, airway intact, No chest tenderness, No respiratory distress Cardiovascular Exam: regular rate/rhythm, normal heart sounds, normal peripheral pulses Gastrointestinal/Abdomen Exam: soft, normal bowel sounds, No tenderness, No guarding Pelvic Exam: not done Rectal Exam: not done Back Exam: normal inspection, normal range of motion, No CVA tenderness, No vertebral tenderness Extremity Exam: normal inspection, normal range of motion, pelvis stable Neurologic Exam: alert, oriented x 3, cooperative, refrigeration manager II-XII nml as tested, normal mood/affect, nml cerebellar function, nml station & gait, sensation nml Skin Exam: normal color, warm, dry Lymphatic Exam: No adenopathy SpO2 Interpretation: normal - Course Nursing assessment & vital signs reviewed: Yes Ordered Tests: Active Orders 24 hr Category Date Time Status IV Insertion STAT Care 03/04/24 15:26 Active AMYLASE Stat Lab 03/04/24 15:35 Completed CBC W DIFF Stat Lab 03/04/24 15:35 Completed CMP Stat Lab 03/04/24 15:35 Completed LIPASE Stat Lab 03/04/24 15:35 Completed MONO SCREEN Stat Lab 03/04/24 15:35 Completed UA W/RFX UR CULTURE Stat Lab 03/04/24 17:07 Completed Medication Summary Generic Name Dose Route Start Last Admin Trade Name Freq PRN Reason Stop Dose Admin Sodium Chloride 1,000 mls @ 999 mls/hr 03/04/24 17:10 03/04/24 17:21 Sodium Chloride 0.9% 1000 Ml IV 03/04/24 18:10 999 mls/hr .Q1H1M STA Administration Discontinued Medications Generic Name Dose Route Start Last Admin Trade Name Freq PRN Reason Stop Dose Admin Diphenhydramine HCl 12.5 mg 03/04/24 16:27 03/04/24 16:38 Diphenhydramine Hcl 50 Mg/Ml Vial IV 03/04/24 16:28 12.5 mg STAT ONE Administration Diphenhydramine HCl Confirm 03/04/24 16:36 Diphenhydramine Hcl 50 Mg/Ml Vial Administered 03/04/24 16:37 Dose 50 mg .ROUTE .STK-MED ONE Sodium Chloride 1,000 mls @ 999 mls/hr 03/04/24 15:26 03/04/24 16:56 Sodium Chloride 0.9% 1000 Ml IV 03/04/24 16:26 Infused .Q1H1M STA Infusion Sodium Chloride Confirm 03/04/24 15:42 Sodium Chloride 0.9% 1000 Ml Administered 03/04/24 15:43 Dose 1,000 mls @ ud .ROUTE .STK-MED ONE Sodium Chloride Confirm 03/04/24 17:18 Sodium Chloride 0.9% 1000 Ml Administered 03/04/24 17:19 Dose 1,000 mls @ ud .ROUTE .STK-MED ONE Prochlorperazine Edisylate 2.5 mg 03/04/24 16:28 03/04/24 16:39 Prochlorperazine Edisylate 10 Mg/2 Ml Vial IV 03/04/24 16:29 2.5 mg STAT ONE Administration Prochlorperazine Edisylate Confirm 03/04/24 16:36 Prochlorperazine Edisylate 10 Mg/2 Ml Vial Administered 03/04/24 16:37 Dose 10 mg .ROUTE .STK-MED ONE Lab/Rad Data: Laboratory Result Diagrams 03/04/24 15:35 03/04/24 15:35 Laboratory Results 03/04/24 03/04/24 03/04/24 Range/Units 17:07 15:35 15:35 WBC (3.98-10.04) x10^3/uL RBC (3.93-5.22) x10^6/uL Hgb (11.2-15.7) g/dL Hct (34.1-44.9) % MCV (79.4-94.8) fL MCH (25.6-32.2) pg MCHC (32.2-35.5) g/dL RDW (11.7-14.4) % Plt Count (182-369) x10^3/uL MPV (9.4-12.3) fL Gran % (34.0-71.1) % Immature Gran % (Auto) (0.001-0.429) % Nucleat RBC Rel Count (0.00-0.2) % Eos # (Auto) (0.04-0.36) x10^3/uL Immature Gran # (Auto) (0.001-0.031) x10^3u/L Absolute Lymphs (auto) (1.18-3.74) x10^3/uL Absolute Monos (auto) (0.24-0.86) x10^3/uL Absolute Nucleated RBC (0.00-0.012) x10^3u/L Lymphocytes % (19.3-51.7) % Monocytes % (4.7-12.5) % Eosinophils % (0.7-5.8) % Basophils % (0.1-1.2) % Absolute Granulocytes (1.56-6.13) x10^3/uL Basophils # (0.01-0.08) x10^3/uL Sodium 136 (135-145) mmol/L Potassium 3.5 (3.5-5.1) mmol/L Chloride 104 (98-107) mmol/L Carbon Dioxide 22 (22-30) mmol/L Anion Gap 13.2 (5-15) MEQ/L BUN 9 (7-17) mg/dL Creatinine 0.51 L (0.52-1.04) mg/dL Estimated GFR 127.9 ML/MIN Glucose 91 (74-106) mg/dL Calcium 8.7 (8.4-10.2) mg/dL Total Bilirubin 0.60 (0.2-1.3) mg/dL AST 27 (14-36) U/L ALT 17 (0-35) U/L Alkaline Phosphatase 80 (38-126) U/L Serum Total Protein 7.0 (6.3-8.2) g/dL Albumin 4.0 (3.5-5.0) g/dL Amylase 95 (30-110) U/L Lipase 71 (23-300) U/L Urine Color Yellow (Yellow) Urine Appearance Clear (Clear) Urine pH 7.0 (4.6-8.0) Ur Specific [place] 1.015 (1.005-1.030) Urine Protein Negative (Negative) Urine Glucose (UA) Negative (Negative) mg/dL Urine Ketones 80 A (Negative) Urine Blood Negative (Negative) Urine Nitrite Negative (Negative) Urine Bilirubin Negative (Negative) Urine Urobilinogen 1.0 A (0.2) mg/dL Ur Leukocyte Esterase Negative (Negative) U Hyaline Cast (Auto) NONE SEEN (0-2) /LPF Urine Microscopic RBC 0-2 (0-5) /HPF Urine Microscopic WBC 0-2 (0-5) /HPF Ur Epithelial Cells Few (None Seen) /HPF Urine Bacteria None Seen (None Seen) /HPF Urine Culture Reflexed NO (NO) Monoscreen NEGATIVE (NEGATIVE) Influenza Type A Ag (NEGATIVE) Influenza Type B Ag (NEGATIVE) RSV (PCR) (NEGATIVE) SARS-CoV-2 (PCR) (NEGATIVE) 03/04/24 03/04/24 Range/Units 15:35 15:30 WBC 15.5 H (3.98-10.04) x10^3/uL RBC 4.30 (3.93-5.22) x10^6/uL Hgb 13.1 (11.2-15.7) g/dL Hct 38.6 (34.1-44.9) % MCV 89.8 (79.4-94.8) fL MCH 30.5 (25.6-32.2) pg MCHC 33.9 (32.2-35.5) g/dL RDW 12.4 (11.7-14.4) % Plt Count 378 H (182-369) x10^3/uL MPV 8.7 L (9.4-12.3) fL Gran % 76.8 H (34.0-71.1) % Immature Gran % (Auto) 0.3 (0.001-0.429) % Nucleat RBC Rel Count 0.0 (0.00-0.2) % Eos # (Auto) 0.08 (0.04-0.36) x10^3/uL Immature Gran # (Auto) 0.05 H (0.001-0.031) x10^3u/L Absolute Lymphs (auto) 2.74 (1.18-3.74) x10^3/uL Absolute Monos (auto) 0.71 (0.24-0.86) x10^3/uL Absolute Nucleated RBC 0.00 (0.00-0.012) x10^3u/L Lymphocytes % 17.7 L (19.3-51.7) % Monocytes % 4.6 L (4.7-12.5) % Eosinophils % 0.5 L (0.7-5.8) % Basophils % 0.1 (0.1-1.2) % Absolute Granulocytes 11.92 H (1.56-6.13) x10^3/uL Basophils # 0.02 (0.01-0.08) x10^3/uL Sodium (135-145) mmol/L Potassium (3.5-5.1) mmol/L Chloride (98-107) mmol/L Carbon Dioxide (22-30) mmol/L Anion Gap (5-15) MEQ/L BUN (7-17) mg/dL Creatinine (0.52-1.04) mg/dL Estimated GFR ML/MIN Glucose (74-106) mg/dL Calcium (8.4-10.2) mg/dL Total Bilirubin (0.2-1.3) mg/dL AST (14-36) U/L ALT (0-35) U/L Alkaline Phosphatase (38-126) U/L Serum Total Protein (6.3-8.2) g/dL Albumin (3.5-5.0) g/dL Amylase (30-110) U/L Lipase (23-300) U/L Urine Color (Yellow) Urine Appearance (Clear) Urine pH (4.6-8.0) Ur Specific [place] (1.005-1.030) Urine Protein (Negative) Urine Glucose (UA) (Negative) mg/dL Urine Ketones (Negative) Urine Blood (Negative) Urine Nitrite (Negative) Urine Bilirubin (Negative) Urine Urobilinogen (0.2) mg/dL Ur Leukocyte Esterase (Negative) U Hyaline Cast (Auto) (0-2) /LPF Urine Microscopic RBC (0-5) /HPF Urine Microscopic WBC (0-5) /HPF Ur Epithelial Cells (None Seen) /HPF Urine Bacteria (None Seen) /HPF Urine Culture Reflexed (NO) Monoscreen (NEGATIVE) Influenza Type A Ag NEGATIVE (NEGATIVE) Influenza Type B Ag NEGATIVE (NEGATIVE) RSV (PCR) NEGATIVE (NEGATIVE) SARS-CoV-2 (PCR) NEGATIVE (NEGATIVE) - Progress Progress: improved, re-examined Progress Note: 03/04/24 16:37 My medical decision making and the assignment of moderate complexity to this p atient's medical issue today is based on review of the patient's past medical history, review the patient's medication list, review patient drug allergy list, history present illness and physical findings on examination. The workup in this patient includes placement of an intravenous line, infusion of normal saline solution, infusion of IV Benadryl and IV Compazine after discussion with pharmacy appropriate medications to treat this 7-week patient to control her emesis, CBC, CMP, amylase, lipase, urinalysis, viral swabs and monotest. Differential diagnosis includes but is not limited to urinary tract infection, dehydration, morning sickness, pancreatitis, electrolyte abnormalities, viral illness 03/04/24 17:10 Patient reexamined. Patient states that the combination of Benadryl and Compazine has worked well to control her nausea. She is feeling much better at this time. 03/04/24 17:11 I have interpreted the laboratory data results that have returned. We are still awaiting the urinalysis. Patient has a leukocytosis. This could be secondary to dehydration and urinary tract infection. In addition, could be secondary to vomiting. We will await the urinalysis study results. 03/04/24 17:51 Interpreted the urinalysis study. The urinalysis study shows dehydration withou t the evidence of urinary tract infection. The vomiting and dehydration is likely the cause of her leukocytosis. We will discharge the patient to home as she is feeling much better. Counseled pt/family regarding: lab results, diagnosis, need for follow-up Medical Desision Making - Diagnostic Testing Diagnostic test were ordered, analyzed, and reviewed by me: Yes - Risk of complications Low Risk: Low risk of morbidity from additional dx testing or treatment - Departure Departure Disposition: Home Clinical Impression: Vomiting and diarrhea, Dehydration Condition: Stable Critical Care Time: No Referrals: SHALINI MALAVE, NEEDLE STRAIGHTENER [Primary Care Provider] - Follow up/PCP as directed Additional Instructions: Drink plenty of clear liquids before advancing your diet. Use Benadryl 25 mg orally every 8 hours as needed to control nausea. Call your transformer maker on 03/06/2024 to make a follow-up appointment to be seen in the next 3 to 5 days.
[2024-03-04 15:04] VITALS: TEMP 98.1
[2024-03-04 15:42] LABS: Absolute Neutrophil Ct (ANC) 11.92 x10^3/uL (1.56-6.13); BASOPHIL % 0.1 % (0.1-1.2); Basophil (Absolute #) 0.02 x10^3/uL (0.01-0.08); Eosinophil % 0.5 % (0.7-5.8); Eosinophil (Absolute #) 0.08 x10^3/uL (0.04-0.36); Hematocrit 38.6 % (34.1-44.9); Hemoglobin 13.1 g/dL (11.2-15.7); IMMATURE GRAN # 0.05 x10^3u/L (0.001-0.031); IMMATURE GRAN % 0.3 % (0.001-0.429); Lymphocyte (Absolute #) 2.74 x10^3/uL (1.18-3.74); Lymphocytes % 17.7 % (19.3-51.7); Mean Cell Volume 89.8 fL (79.4-94.8); Mean Corpuscular Hemoglobin 30.5 pg (25.6-32.2); Mean Corpuscular Hgb Concent. 33.9 g/dL (32.2-35.5); Mean Platelet Volume 8.7 fL (9.4-12.3); Monocyte (Absolute #) 0.71 x10^3/uL (0.24-0.86); Monocytes % 4.6 % (4.7-12.5); Neutrophil % 76.8 % (34.0-71.1); Platelet Count 378 x10^3/uL (182-369); Red Cell Distribution Width 12.4 % (11.7-14.4); White Blood Count 15.5 x10^3/uL (3.98-10.04)
[2024-03-04] MEDS ORDERED: Sodium Chloride 0.9% 1000 ML 1,000 ML ONE ×2 (15:42→17:18)
[2024-03-04] MEDS: Sodium Chloride 0.9% 1000 ML 1,000 ML IV STA ×2 (15:46→17:21)
[2024-03-04 15:55] LABS: ANION GAP 13.2 MEQ/L (5-15); BILIRUBIN,TOTAL 0.6 mg/dL (0.2-1.3); Calcium 8.7 mg/dL (8.4-10.2); Creatinine 1 0.51 mg/dL (0.52-1.04); EST GLOMERULAR FILTRATION RATE 127.9 ML/MIN; Potassium 3.5 mmol/L (3.5-5.1)
[2024-03-04 16:21] LABS: INFLUENZA A NEGATIVE (NEGATIVE); INFLUENZA B NEGATIVE (NEGATIVE); RESPIRATORY SYNCTIAL VIRUS NEGATIVE (NEGATIVE); SARS-CoV-2 Xpert Express NEGATIVE (NEGATIVE)
[2024-03-04] MEDS ORDERED: Compazine 10 MG/2 ML ONE (16:36)
[2024-03-04] MEDS ORDERED: BENADRYL 50 MG/ML ONE (16:36)
[2024-03-04] MEDS: BENADRYL 50 MG/ML IV ONE (16:38)
[2024-03-04] MEDS: Compazine 10 MG/2 ML IV ONE (16:39)
[2024-03-04 17:09] VITALS: PULSE 82; RESP 18; O2SAT 97
[2024-03-04 17:29] LABS: Appearance Clear (Clear); Bacteria None Seen /HPF (None Seen); Bilirubin Negative (Negative); Blood Negative (Negative); Epithelial Cells Few /HPF (None Seen); Glucose, Urine Negative (Negative); Hyaline Casts NONE SEEN /LPF (0-2); Ketones 80 (Negative); Leukocyte Esterase Negative (Negative); Nitrite Negative (Negative); Protein,Urine Dip Negative (Negative); RBC 0-2 /HPF (0-5); Specific Gravity 1.015 (1.005-1.030); WBC 0-2 /HPF (0-5)
[2024-03-04 17:30] LABS: ADD URINE CULTURE? NO (NO)
[2024-03-04 18:24] VITALS: BP 133/90
== END 2024-03-04 18:23 | disposition home or self-care (01) ==
LOC: ED 14:46
DX: O21.9 Vomiting of pregnancy, unspecified (principal); E86.0 Dehydration; Z3A.01 Less than 8 weeks gestation of pregnancy
CPT/HCPCS: 0241U; 36415; 80053; 81001; 82150; 83690; 85025; 86308; 96360; 96361; 96374; 96375; 99284; J1200

== ENCOUNTER 2024-03-09 12:03 | Emergency (ER) | payer OTHER ==
--- NOTE | 2024-03-09 12:18 | ERPHSYRPT ---
- History of Present Illness Time Seen by Provider: 03/09/24 12:18 Source: patient, family Exam Limitations: no limitations Physician History: This is a 33-year-old white female patient of nurse practitioner Swati and gas engineer Dr. Mckeon who is 8 weeks and has had significant vomiting in the last several weeks. She was seen by me in our emergency department here at [facility] on 03/04/2024. She felt well that day and the next day following her visit here in the emergency department. However, the nausea and vomiting has slowly increased over the last few days. She has an appointment to see her gas engineer on 03/11/2024. Patient has had an OB ultrasound on 02/28/2024 and I reviewed the impression. The impression states single, viable intrauterine . No suspicious adnexal masses or free fluid. Patient does not have significant abdominal pain. She has had no vaginal discharge. She denies chest pain. She denies shortness of breath. Patient has a history of seizure disorder, fibromyalgia, rheumatoid arthritis, anxiety and panic disorder. Timing/Duration: day(s), worse Activites at Onset: none Severity of Pain-Max: mild Severity of Pain-Current: none Prior abdominal problems: none Sexual intercourse history: non-contributory Modifying Factors: Improves With: vomiting Associated Symptoms: nausea, vomiting, , No abdominal pain, No vaginal discharge, No vaginal fluid leakage Allergies/Adverse Reactions: naproxen Allergy (Severe, Verified 03/09/24 12:19) "deadly" acetaminophen [From Darvocet-N 100] Allergy (Mild, Verified 03/09/24 12:19) codeine Allergy (Mild, Verified 03/09/24 12:19) hydromorphone HCl [From Dilaudid] Allergy (Mild, Verified 03/09/24 12:19) morphine Allergy (Mild, Verified 03/09/24 12:19) ondansetron HCl [From Zofran] Allergy (Mild, Verified 03/09/24 12:19) propoxyphene napsylate [From Darvocet-N 100] Allergy (Mild, Verified 03/09/24 12:19) sumatriptan [From Imitrex] Allergy (Mild, Verified 03/09/24 12:19) sumatriptan succinate [From Imitrex] Allergy (Mild, Verified 03/09/24 12:19) topiramate [From Topamax] Allergy (Mild, Verified 03/09/24 12:19) pregabalin [From Lyrica] Allergy (Verified 03/09/24 12:19) Home Medications: Venlafaxine HCl 75 mg PO HS 02/23/24 [History] Folic Acid 1 mg [Folate 1 mg] 1 mg PO DAILY 03/04/24 [History] Pnv No.95/Ferrous Fum/Folic AC [ Vitamins Tablet] 1 tab PO DAILY 03/04/24 [History] Hx Tetanus, Diphtheria Vaccination/Date Given: No Hx Influenza Vaccination/Date Given: No Hx Pneumococcal Vaccination/Date Given: No Travel Risk - International Travel Have you traveled outside of the country in past 3 weeks: No - Emerging Infectious Disease Are you exhibiting symptoms associated with any current EIDs: Yes Symptoms: Abdominal Pain, Diarrhea, Vomitting - Review of Systems Constitutional: No Symptoms Eyes: No Symptoms Ears, Nose, & Throat: No Symptoms Respiratory: No Symptoms Cardiac: No Symptoms Abdominal/Gastrointestinal: Nausea, Vomiting, Appetite Changes, No Abdominal Pain Musculoskeletal: No Symptoms Skin: No Symptoms Neurological: No Symptoms Psychological: No Symptoms Endocrine: No Symptoms Hematologic/Lymphatic: No Symptoms Immunological/Allergic: No Symptoms All Other Systems: Reviewed and Negative - Past Medical History Pertinent Past Medical History: Yes Neurological History: Seizures Cardiac History: Other Musculoskeletal History: Fibromyalgia, Rheumatoid Arthritis Psycho-Social History: Anxiety, Depression, Panic Disorder Other Medical History: STILLS disease. mitral valve prolapse, with arrythmia. migraines. 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, epilepsy - Past Surgical History Past Surgical History: Yes Musculoskeletal: Other Female Surgical History: Section Other Surgical History: csection, tonsillectomy - Female History Hx Last Menstrual Period: Approx January 09, 2024 - Social History Smoking Status: Never smoker Exposure to second hand smoke: No Drug Use: marijuana Patient Lives Alone: Yes - Social Determinants of Health Will the patient participate in the screening: Yes Do you worry about a steady place to live?: No In the past 12 months,have you had to go without utilities?: No Transportation Issues: No Has anyone in your support network made you feel unsafe?: No Have you or anyone in your house had to go without enough: No - Nursing Vital Signs Nursing Vital Signs: Initial Vital Signs Temperature 97.0 F 03/09/24 12:27 Pulse Rate 99 H 03/09/24 12:27 Respiratory Rate 18 03/09/24 12:27 Blood Pressure 142/109 03/09/24 12:27 O2 Sat by Pulse Oximetry 100 03/09/24 12:27 Pain Scale Pain Intensity 0 - Physical Exam General Appearance: mild distress, alert, anxiety Eye Exam: PERRL/EOMI, eyes nml inspection Ears, Nose, Throat Exam: dry mucous membranes Neck Exam: normal inspection, non-tender, supple, full range of motion Respiratory Exam: normal breath sounds, lungs clear, airway intact, No chest tenderness, No respiratory distress Cardiovascular Exam: regular rate/rhythm, normal heart sounds, normal peripheral pulses Gastrointestinal/Abdomen Exam: soft, normal bowel sounds, No tenderness Pelvic Exam: not done Rectal Exam: not done Back Exam: normal inspection, normal range of motion, No CVA tenderness, No vertebral tenderness Extremity Exam: normal inspection, normal range of motion, pelvis stable Neurologic Exam: alert, oriented x 3, cooperative, train engineer II-XII nml as tested, nml cerebellar function, nml station & gait, sensation nml Skin Exam: normal color, warm, dry Lymphatic Exam: No adenopathy SpO2 Interpretation: normal O2 Delivery: Room Air - Course Nursing assessment & vital signs reviewed: Yes Ordered Tests: Active Orders 24 hr Category Date Time Status IV Insertion STAT Care 03/09/24 12:18 Active AMYLASE Stat Lab 03/09/24 12:00 Completed CBC W DIFF Stat Lab 03/09/24 12:00 Completed CMP Stat Lab 03/09/24 12:00 Completed LIPASE Stat Lab 03/09/24 12:00 Completed UA W/RFX UR CULTURE Stat Lab 03/09/24 14:40 Completed Medication Summary Generic Name Dose Route Start Last Admin Trade Name Freq PRN Reason Stop Dose Admin Sodium Chloride 500 mls @ 500 mls/hr 03/09/24 15:11 Sodium Chloride 0.9% 500 Ml IV 03/09/24 16:10 .Q1H ONE Discontinued Medications Generic Name Dose Route Start Last Admin Trade Name Freq PRN Reason Stop Dose Admin Diphenhydramine HCl 25 mg 03/09/24 12:46 03/09/24 13:06 Diphenhydramine Hcl 50 Mg/Ml Vial IV 03/09/24 12:47 25 mg STAT ONE Administration Diphenhydramine HCl Confirm 03/09/24 13:03 Diphenhydramine Hcl 50 Mg/Ml Vial Administered 03/09/24 13:04 Dose 50 mg .ROUTE .STK-MED ONE Sodium Chloride 1,000 mls @ 999 mls/hr 03/09/24 12:18 03/09/24 14:02 Sodium Chloride 0.9% 1000 Ml IV 03/09/24 13:18 Infused .Q1H1M STA Infusion Sodium Chloride Confirm 03/09/24 13:03 Sodium Chloride 0.9% 1000 Ml Administered 03/09/24 13:04 Dose 1,000 mls @ ud .ROUTE .STK-MED ONE Sodium Chloride 500 mls @ 500 mls/hr 03/09/24 13:57 03/09/24 15:02 Sodium Chloride 0.9% 500 Ml IV 03/09/24 14:56 Infused .Q1H ONE Infusion Sodium Chloride Confirm 03/09/24 14:00 Sodium Chloride 0.9% 500 Ml Administered 03/09/24 14:01 Dose 500 mls @ ud IV .STK-MED ONE Ondansetron HCl 4 mg 03/09/24 12:18 03/09/24 13:02 Ondansetron Hcl 4 Mg/2 Ml Vial IV 03/09/24 12:19 Not Given STAT ONE Prochlorperazine Edisylate 5 mg 03/09/24 12:47 03/09/24 13:05 Prochlorperazine Edisylate 10 Mg/2 Ml Vial IV 03/09/24 12:48 5 mg STAT ONE Administration Prochlorperazine Edisylate Confirm 03/09/24 13:03 Prochlorperazine Edisylate 10 Mg/2 Ml Vial Administered 03/09/24 13:04 Dose 10 mg .ROUTE .STK-MED ONE Lab/Rad Data: Laboratory Result Diagrams 03/09/24 12:00 03/09/24 12:00 Laboratory Results 03/09/24 03/09/24 03/09/24 Range/Units 14:40 12:00 12:00 WBC 13.3 H (3.98-10.04) x10^3/uL RBC 4.54 (3.93-5.22) x10^6/uL Hgb 13.9 (11.2-15.7) g/dL Hct 40.1 (34.1-44.9) % MCV 88.3 (79.4-94.8) fL MCH 30.6 (25.6-32.2) pg MCHC 34.7 (32.2-35.5) g/dL RDW 12.3 (11.7-14.4) % Plt Count 427 H (182-369) x10^3/uL MPV 8.9 L (9.4-12.3) fL Gran % 79.5 H (34.0-71.1) % Immature Gran % (Auto) 0.4 (0.001-0.429) % Nucleat RBC Rel Count 0.0 (0.00-0.2) % Eos # (Auto) 0.05 (0.04-0.36) x10^3/uL Immature Gran # (Auto) 0.05 H (0.001-0.031) x10^3u/L Absolute Lymphs (auto) 2.02 (1.18-3.74) x10^3/uL Absolute Monos (auto) 0.57 (0.24-0.86) x10^3/uL Absolute Nucleated RBC 0.00 (0.00-0.012) x10^3u/L Lymphocytes % 15.2 L (19.3-51.7) % Monocytes % 4.3 L (4.7-12.5) % Eosinophils % 0.4 L (0.7-5.8) % Basophils % 0.2 (0.1-1.2) % Absolute Granulocytes 10.54 H (1.56-6.13) x10^3/uL Basophils # 0.03 (0.01-0.08) x10^3/uL Sodium 137 (135-145) mmol/L Potassium 3.4 L (3.5-5.1) mmol/L Chloride 106 (98-107) mmol/L Carbon Dioxide 20 L (22-30) mmol/L Anion Gap 14.4 (5-15) MEQ/L BUN 8 (7-17) mg/dL Creatinine 0.54 (0.52-1.04) mg/dL Estimated GFR 126.2 ML/MIN Glucose 103 (74-106) mg/dL Calcium 9.3 (8.4-10.2) mg/dL Total Bilirubin 0.80 (0.2-1.3) mg/dL AST 20 (14-36) U/L ALT 18 (0-35) U/L Alkaline Phosphatase 90 (38-126) U/L Serum Total Protein 7.5 (6.3-8.2) g/dL Albumin 4.2 (3.5-5.0) g/dL Amylase 74 (30-110) U/L Lipase 77 (23-300) U/L Urine Color Yellow (Yellow) Urine Appearance Clear (Clear) Urine pH 5.5 (4.6-8.0) Ur Specific [place] 1.015 (1.005-1.030) Urine Protein Negative (Negative) Urine Glucose (UA) Negative (Negative) mg/dL Urine Ketones >=160 A (Negative) Urine Blood Negative (Negative) Urine Nitrite Negative (Negative) Urine Bilirubin Negative (Negative) Urine Urobilinogen 0.2 (0.2) mg/dL Ur Leukocyte Esterase Negative (Negative) U Hyaline Cast (Auto) NONE SEEN (0-2) /LPF Urine Microscopic RBC 0-2 (0-5) /HPF Urine Microscopic WBC 0-2 (0-5) /HPF Ur Epithelial Cells Rare (None Seen) /HPF Urine Bacteria None Seen (None Seen) /HPF Urine Culture Reflexed NO (NO) - Progress Progress: improved, re-examined Air Movement: good Progress Note: 03/09/24 12:55 My medical decision making and the assignment of moderate complexity to this patient's medical issue today is based on review of the patient's past medical history, review the patient's medication list, review the patient drug allergy list, history present illness and physical findings on examination. The workup in this patient includes placement of intravenous line, infusion of normal saline solution, urinalysis, CBC, CMP, amylase, lipase, magnesium level and infusion of Benadryl and intravenous Compazine. This patient has a reaction to Zofran and we will avoid this medication. Differential diagnosis includes but is not limited to dehydration, urinary tract infection, electrolyte abnormalities 03/09/24 15:18 I interpreted the patient's laboratory data results. Patient is dehydrated. She has received 1500 mL of normal saline solution. I had placed an order to provide the patient with additional 500 mL of normal saline. However, the patient states that she is feeling much better and does not want to wait for the next 500 mL bag to be infused. She is tolerating clear liquids and wants to go home. Blood Culture(s) Obtained: No Antibiotics given: No Counseled pt/family regarding: lab results, diagnosis, need for follow-up Medical Desision Making - Independent Historian Additional History obtained from: Spouse - Diagnostic Testing Diagnostic test were ordered, analyzed, and reviewed by me: Yes - Risk of complications Low Risk: Low risk of morbidity from additional dx testing or treatment - Departure Departure Disposition: Home Clinical Impression: Vomiting during , Dehydration Condition: Stable Critical Care Time: No Referrals: SHALINI MALAVE, P[facility]ANNER [Primary Care Provider] - Follow up/PCP as directed Additional Instructions: Clear liquids only. Once tolerating clear liquids well, slowly advance your diet. Avoid fatty greasy spicy foods. Keep your appointment with your gas engineer on 03/11/2024.
[2024-03-09 12:29] VITALS: TEMP 97
[2024-03-09 12:36] LABS: Absolute Neutrophil Ct (ANC) 10.54 x10^3/uL (1.56-6.13); BASOPHIL % 0.2 % (0.1-1.2); Basophil (Absolute #) 0.03 x10^3/uL (0.01-0.08); Eosinophil % 0.4 % (0.7-5.8); Eosinophil (Absolute #) 0.05 x10^3/uL (0.04-0.36); Hematocrit 40.1 % (34.1-44.9); Hemoglobin 13.9 g/dL (11.2-15.7); IMMATURE GRAN # 0.05 x10^3u/L (0.001-0.031); IMMATURE GRAN % 0.4 % (0.001-0.429); Lymphocyte (Absolute #) 2.02 x10^3/uL (1.18-3.74); Lymphocytes % 15.2 % (19.3-51.7); Mean Cell Volume 88.3 fL (79.4-94.8); Mean Corpuscular Hemoglobin 30.6 pg (25.6-32.2); Mean Corpuscular Hgb Concent. 34.7 g/dL (32.2-35.5); Mean Platelet Volume 8.9 fL (9.4-12.3); Monocyte (Absolute #) 0.57 x10^3/uL (0.24-0.86); Monocytes % 4.3 % (4.7-12.5); Neutrophil % 79.5 % (34.0-71.1); Platelet Count 427 x10^3/uL (182-369); Red Blood Count 4.54 x10^6/uL (3.93-5.22); Red Cell Distribution Width 12.3 % (11.7-14.4); White Blood Count 13.3 x10^3/uL (3.98-10.04)
[2024-03-09 12:51] LABS: ALBUMIN 4.2 g/dL (3.5-5.0); ANION GAP 14.4 MEQ/L (5-15); BILIRUBIN,TOTAL 0.8 mg/dL (0.2-1.3); Calcium 9.3 mg/dL (8.4-10.2); Creatinine 1 0.54 mg/dL (0.52-1.04); EST GLOMERULAR FILTRATION RATE 126.2 ML/MIN; Potassium 3.4 mmol/L (3.5-5.1); Total Protein 7.5 g/dL (6.3-8.2)
[2024-03-09] MEDS: Zofran 4 MG/2 ML VIAL IV ONE (13:02)
[2024-03-09] MEDS ORDERED: BENADRYL 50 MG/ML ONE (13:03)
[2024-03-09] MEDS ORDERED: Sodium Chloride 0.9% 1000 ML 1,000 ML ONE (13:03)
[2024-03-09] MEDS ORDERED: Compazine 10 MG/2 ML ONE (13:03)
[2024-03-09] MEDS: Sodium Chloride 0.9% 1000 ML 1,000 ML IV STA (13:05)
[2024-03-09] MEDS: Compazine 10 MG/2 ML IV ONE (13:05)
[2024-03-09] MEDS: BENADRYL 50 MG/ML IV ONE (13:06)
[2024-03-09] MEDS ORDERED: Sodium Chloride 0.9% 500 ML 500 ML IV ONE ×2 (14:00→15:11)
[2024-03-09] MEDS: Sodium Chloride 0.9% 500 ML 500 ML IV ONE (14:02)
[2024-03-09 15:00] LABS: Appearance Clear (Clear); Bacteria None Seen /HPF (None Seen); Bilirubin Negative (Negative); Blood Negative (Negative); Epithelial Cells Rare /HPF (None Seen); Glucose, Urine Negative (Negative); Hyaline Casts NONE SEEN /LPF (0-2); Ketones >=160 (Negative); Leukocyte Esterase Negative (Negative); Nitrite Negative (Negative); Ph 5.5 (4.6-8.0); Protein,Urine Dip Negative (Negative); RBC 0-2 /HPF (0-5); Specific Gravity 1.015 (1.005-1.030); Urobilinogen 0.2 mg/dL (0.2); WBC 0-2 /HPF (0-5)
[2024-03-09 15:07] LABS: ADD URINE CULTURE? NO (NO)
[2024-03-09 15:36] VITALS: BP 144/103; PULSE 96; RESP 16; O2SAT 100
== END 2024-03-09 15:41 | disposition home or self-care (01) ==
LOC: ED 12:03
DX: O21.9 Vomiting of pregnancy, unspecified (principal); Z3A.08 8 weeks gestation of pregnancy; E86.0 Dehydration; Z79.899 Other long term (current) drug therapy
CPT/HCPCS: 36000; 36415; 80053; 81001; 82150; 83690; 85025; 96374; 96375; 99284; J1200

== ENCOUNTER 2024-04-12 12:20 | Emergency (ER) | payer OTHER ==
[2024-04-12 12:39] VITALS: BP 136/103; PULSE 105; RESP 20; TEMP 98.4; O2SAT 98
--- NOTE | 2024-04-12 12:49 | ERPHSYRPT ---
- History of Present Illness Time Seen by Provider: 04/12/24 12:49 Source: patient Exam Limitations: no limitations Patient Subjective Stated Complaint: Fever Triage Nursing Assessment: Patient ambulated back to ED and transferred self to bed. Patient A+O X3. Patient's skin pink, warm and dry. Patient complains of fever, body aches, stuffy nose, and cough for 3 days. Patient is currently 13 weeks and feels weak. Lungs clear a/p sharmaine. Physician History: The patient, who is 13 weeks , presents with symptoms suggestive of COVID-19. She reports feeling unwell for the past two to three days, with symptoms including severe sinus congestion, dehydration, weakness, and lightheadedness, which have significantly impacted her ability to function. She also reports having been in contact with individuals who were ill, although it is unclear if these individuals were COVID-19 positive. The patient has experienced fevers up to 101 degrees Fahrenheit, which have responded to Tylenol. She has also taken Benadryl for symptom relief. The patient has a known allergy to Naproxen. She has not received the COVID-19 vaccine due to a history of adverse reactions to vaccines. Timing/Duration: day(s) (3) Cough Quality/Degree: moderate, sputum Possible Cause: occasional episodes Modifying Factors: Worsens With: activity, coughing Associated Symptoms: fever, chills, cough, facial pain, headache, muscle aches, nasal congestion, nasal drainage, sinus infection, No sore throat, No wheezing Allergies/Adverse Reactions: naproxen Allergy (Severe, Verified 04/12/24 12:28) "deadly" acetaminophen [From Darvocet-N 100] Allergy (Mild, Verified 04/12/24 12:28) codeine Allergy (Mild, Verified 04/12/24 12:28) hydromorphone HCl [From Dilaudid] Allergy (Mild, Verified 04/12/24 12:28) morphine Allergy (Mild, Verified 04/12/24 12:28) ondansetron HCl [From Zofran] Allergy (Mild, Verified 04/12/24 12:28) propoxyphene napsylate [From Darvocet-N 100] Allergy (Mild, Verified 04/12/24 12:28) sumatriptan [From Imitrex] Allergy (Mild, Verified 04/12/24 12:28) sumatriptan succinate [From Imitrex] Allergy (Mild, Verified 04/12/24 12:28) topiramate [From Topamax] Allergy (Mild, Verified 04/12/24 12:28) pregabalin [From Lyrica] Allergy (Verified 04/12/24 12:28) Home Medications: Venlafaxine HCl 75 mg PO HS 02/23/24 [History] Folic Acid 1 mg [Folate 1 mg] 1 mg PO DAILY 03/04/24 [History] Pnv No.95/Ferrous Fum/Folic AC [ Vitamins Tablet] 1 tab PO DAILY 03/04/24 [History] Hx Tetanus, Diphtheria Vaccination/Date Given: No Hx Influenza Vaccination/Date Given: No Hx Pneumococcal Vaccination/Date Given: No Immunizations Up to Date: Yes Travel Risk - International Travel Have you traveled outside of the country in past 3 weeks: No - Emerging Infectious Disease Are you exhibiting symptoms associated with any current EIDs: No Symptoms: Abdominal Pain, Diarrhea, Vomitting - Review of Systems All Other Systems: Reviewed and Negative - Past Medical History Pertinent Past Medical History: Yes Neurological History: Seizures Cardiac History: Other Musculoskeletal History: Fibromyalgia, Rheumatoid Arthritis Psycho-Social History: Anxiety, Depression, Panic Disorder Other Medical History: STILLS disease. mitral valve prolapse, with arrythmia. migraines. 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, epilepsy - Past Surgical History Past Surgical History: Yes Musculoskeletal: Other Female Surgical History: Section Other Surgical History: csection, tonsillectomy - Female History Hx Last Menstrual Period: Jan 10 2024 Hx Now: Yes Gestational Age: 13 weeks - Social History Smoking Status: Never smoker Exposure to second hand smoke: No Drug Use: none Patient Lives Alone: Yes - Social Determinants of Health Will the patient participate in the screening: Yes Do you worry about a steady place to live?: No Do you have any problems with any of the following?: No known problems In the past 12 months,have you had to go without utilities?: No Transportation Issues: No Has anyone in your support network made you feel unsafe?: No Have you or anyone in your house had to go without enough: No - Nursing Vital Signs Nursing Vital Signs: Initial Vital Signs Temperature 98.4 F 04/12/24 12:32 Pulse Rate 105 H 04/12/24 12:32 Respiratory Rate 20 04/12/24 12:32 Blood Pressure 136/103 04/12/24 12:32 O2 Sat by Pulse Oximetry 98 04/12/24 12:32 Pain Scale Pain Intensity 7 - Physical Exam General Appearance: no apparent distress Eye Exam: eyes nml inspection Ears, Nose, Throat Exam: other (maxillary and frontal sinus TTP) Neck Exam: normal inspection, non-tender, supple, full range of motion Respiratory Exam: normal breath sounds, lungs clear, airway intact, No respiratory distress Cardiovascular Exam: regular rate/rhythm, capillary refill <2 sec, No edema Neurologic Exam: alert, oriented x 3, cooperative Skin Exam: normal color, warm, dry SpO2 Interpretation: normal SpO2: 98 O2 Delivery: Room Air - Course Nursing assessment & vital signs reviewed: Yes Ordered Tests: Active Orders 24 hr Category Date Time Status UA W/RFX UR CULTURE Stat Lab 04/12/24 12:56 Ordered Medication Summary Discontinued Medications Generic Name Dose Route Start Last Admin Trade Name Domi PRN Reason Stop Dose Admin Acetaminophen 975 mg 04/12/24 13:58 04/12/24 14:10 Acetaminophen 325 Mg Tablet PO 04/12/24 13:59 975 mg STAT STA Administration Acetaminophen Confirm 04/12/24 14:03 Acetaminophen 325 Mg Tablet Administered 04/12/24 14:04 Dose 975 mg .ROUTE .STK-MED ONE Sodium Chloride 1,000 mls @ 999 mls/hr 04/12/24 12:56 04/12/24 14:10 Sodium Chloride 0.9% 1000 Ml IV 04/12/24 13:56 Infused .Q1H1M STA Infusion Sodium Chloride Confirm 04/12/24 13:04 Sodium Chloride 0.9% 1000 Ml Administered 04/12/24 13:05 Dose 1,000 mls @ ud .ROUTE .STK-MED ONE Ondansetron HCl 4 mg 04/12/24 13:59 04/12/24 14:08 Ondansetron Hcl 4 Mg/2 Ml Vial IV 04/12/24 14:00 Not Given STAT ONE Ondansetron HCl Confirm 04/12/24 14:03 Ondansetron Hcl 4 Mg/2 Ml Vial Administered 04/12/24 14:04 Dose 4 mg .ROUTE .STK-MED ONE Oxymetazoline HCl 15 ml 04/12/24 12:59 08/11/24 13:09 Oxymetazoline Nasal Effie 15ml Bottle NS 04/12/24 13:00 15 ml STAT ONE Administration Lab/Rad Data: Laboratory Results 04/12/24 Range/Units 13:00 Influenza Type A Ag NEGATIVE (NEGATIVE) Influenza Type B Ag NEGATIVE (NEGATIVE) RSV (PCR) NEGATIVE (NEGATIVE) SARS-CoV-2 (PCR) POSITIVE A (NEGATIVE) Group A Strep Antibody NOT DETECTED (NEGATIVE) - Progress Progress: improved Air Movement: good Progress Note: Patient tested positive for COVID. Based on ACOG guidelines will prescribe Paxlovid BID x 5 days. Encourage rest and hydration. Tylenol for aches, afrin nasal spray x 3 days max, Benadryl for nausea. Follow up with OB this week. Blood Culture(s) Obtained: No Antibiotics given: No Counseled pt/family regarding: lab results, diagnosis, need for follow-up Medical Desision Making - Diagnostic Testing Diagnostic test were ordered, analyzed, and reviewed by me: Yes Radiological Interpretation: Interpreted by me - Risk of complications The pt has a mod risk of morbidity or mortality based on: Need for prescription drug management - Departure Departure Disposition: Home Clinical Impression: COVID-19 affecting in second trimester Condition: Good Critical Care Time: No Referrals: SHALINI MALAVE, RESOLUTION REP [Primary Care Provider] - Follow up/PCP as directed Instructions: COVID-19 and Prescriptions: Nirmatrelvir/Ritonavir [Paxlovid 300-100 mg Dose Pack] 1 each PO BID 5 Days #10 tab Prochlorperazine Maleate 10 mg PO TID PRN 5 Days #15 tablet PRN Reason: Nausea/Vomiting
[2024-04-12] MEDS ORDERED: Sodium Chloride 0.9% 1000 ML 1,000 ML ONE (13:04)
[2024-04-12] MEDS: Sodium Chloride 0.9% 1000 ML 1,000 ML IV STA (13:07)
[2024-04-12] MEDS: AFRIN NASAL SPRAY NS ONE (13:09)
[2024-04-12 13:31] LABS: Group A Strep NOT DETECTED (NEGATIVE)
[2024-04-12 13:50] LABS: INFLUENZA A NEGATIVE (NEGATIVE); INFLUENZA B NEGATIVE (NEGATIVE); RESPIRATORY SYNCTIAL VIRUS NEGATIVE (NEGATIVE)
[2024-04-12] MEDS ORDERED: TYLENOL 325 MG ONE (14:03)
[2024-04-12] MEDS ORDERED: Zofran 4 MG/2 ML VIAL ONE (14:03)
[2024-04-12 14:05] LABS: SARS-CoV-2 Xpert Express POSITIVE (NEGATIVE)
[2024-04-12] MEDS: Zofran 4 MG/2 ML VIAL IV ONE (14:08)
[2024-04-12] MEDS: TYLENOL 325 MG PO STA (14:10)
[2024-04-12] MEDS ORDERED: Compazine 10 MG/2 ML ONE (14:18)
[2024-04-12] MEDS: Compazine 10 MG/2 ML IV ONE (14:21)
== END 2024-04-12 14:54 | disposition home or self-care (01) ==
LOC: ED 12:20
DX: O98.511 Other viral diseases complicating pregnancy, first trimester (principal); U07.1 COVID-19; Z3A.13 13 weeks gestation of pregnancy; R50.9 Fever, unspecified; R09.81 Nasal congestion; R53.1 Weakness; Z79.899 Other long term (current) drug therapy
CPT/HCPCS: 0241U; 87651; 99283; J2405; A9270-GY

== ENCOUNTER 2024-06-25 16:33 | Observation (INO) | payer OTHER ==
[2024-06-25 18:38] LABS: Amphetamine,Urine NEGATIVE (NEGATIVE); Barbiturate,Urine NEGATIVE (NEGATIVE); Benzodiazepine,Urine NEGATIVE (NEGATIVE); Cocaine,Urine NEGATIVE (NEGATIVE); Methadone,Urine NEGATIVE (NEGATIVE); Opiate,Urine NEGATIVE (NEGATIVE); PCP,Urine NEGATIVE (NEGATIVE); THC,Urine POSITIVE (NEGATIVE)
== END 2024-06-25 17:25 | disposition home or self-care (01) ==
LOC: OB 16:33
PROVIDERS: ADMIT Obstetrics & Gynecology; ATTEND Obstetrics & Gynecology
DX: Z34.82 Encounter for supervision of other normal pregnancy, second trimester (principal); Z3A.23 23 weeks gestation of pregnancy
CPT/HCPCS: 80307; G0378; G0379

== ENCOUNTER 2024-06-25 17:23 | Observation (INO) | payer OTHER ==
--- NOTE | 2024-06-25 18:19 | ERPHSYRPT ---
- History of Present Illness Source: patient Exam Limitations: no limitations Patient Subjective Stated Complaint: Dental pain Timing/Duration: abrupt onset Severity: severe ENT Location: dental Prearrival Treatment: no prearrival treatment Modifying Factors: Worsens With: other (Hot and cold and moving jaw to open and close mouth) Associated Symptoms: jaw pain, tooth pain, No ear pain (R), No ear pain (L), No cough, No fever, No chills, No change in hearing, No dizziness, No drooling, No ear drainage, No facial pain/swelling, No headache, No hearing loss, No malaise, No nasal congestion/drainage, No epistaxis, No nasal foreign body, No neck pain, No poor fluid intake, No swollen glands, No sinus infection, No sore throat, No difficulty swallowing, No voice change Hx Tetanus, Diphtheria Vaccination/Date Given: No Hx Influenza Vaccination/Date Given: No Hx Pneumococcal Vaccination/Date Given: No <HAN MARTEL - Last Filed: 06/25/24 19:09> <VIRGIL NEGRETE - Last Filed: 06/25/24 20:13> - History of Present Illness Time Seen by Provider: 06/25/24 18:00 Physician History: Patient is a 34-year-old female who is a at 24 weeks who was referred from labor and delivery after being evaluated there and medically cleared who complains of left lower dental pain for the past 1 week, and exacerbation of her chronic issues been dealing with over the past 1 year. Patient denies any new trauma to her teeth, any recent dental work, or any other recent HEENT procedures to make the situation worse. Patient states she has tried Tylenol [id number] with some relief of her pain, but she has not been able to see any dentist due to the lack of accepting dental providers with her insurance and she does not drive so the most recent referrals are outside of 1 and half to 2 hours away. Patient denies any facial swelling, but does have pain with opening closing her mouth and her pain is worse with any type of hot or cold that hits the tooth which is in the lower front dental area. (HAN MARTEL) Allergies/Adverse Reactions: naproxen Allergy (Severe, Verified 06/25/24 18:11) "deadly" acetaminophen [From Darvocet-N 100] Allergy (Mild, Verified 06/25/24 18:11) codeine Allergy (Mild, Verified 06/25/24 18:11) hydromorphone HCl [From Dilaudid] Allergy (Mild, Verified 06/25/24 18:11) morphine Allergy (Mild, Verified 06/25/24 18:11) ondansetron HCl [From Zofran] Allergy (Mild, Verified 06/25/24 18:11) propoxyphene napsylate [From Darvocet-N 100] Allergy (Mild, Verified 06/25/24 1 8:11) sumatriptan [From Imitrex] Allergy (Mild, Verified 06/25/24 18:11) sumatriptan succinate [From Imitrex] Allergy (Mild, Verified 06/25/24 18:11) topiramate [From Topamax] Allergy (Mild, Verified 06/25/24 18:11) pregabalin [From Lyrica] Allergy (Verified 06/25/24 18:11) Home Medications: Venlafaxine HCl 75 mg PO HS 02/23/24 [History] Pnv No.95/Ferrous Fum/Folic AC [ Vitamins Tablet] 1 tab PO DAILY 03/04/24 [History] Travel Risk - Emerging Infectious Disease Are you exhibiting symptoms associated with any current EIDs: No Symptoms: Abdominal Pain, Diarrhea, Vomitting <HAN MARTEL - Last Filed: 06/25/24 19:09> - Review of Systems Constitutional: No Fever, No Chills Eyes: No Symptoms, No Eye Pain, No Eye Redness, No Vision Changes Ears, Nose, & Throat: No Symptoms, No Ear Pain, No Nose Pain, No Nose Congestion, No Sinus Drainage, No Mouth Pain, No Loose Teeth, No Throat Pain, No Throat Swelling, No Hoarse, No Painful Swallowing Respiratory: No Cough, No Dyspnea Cardiac: No Chest Pain, No Edema, No Syncope Abdominal/Gastrointestinal: No Abdominal Pain, No Nausea, No Vomiting, No Diarrhea Genitourinary Symptoms: No Dysuria, No Frequency, No Hematuria, No Hesitancy, No Vaginal Bleeding, No Vaginal Discharge Musculoskeletal: No Back Pain, No Neck Pain Skin: No Rash Neurological: No Dizziness, No Focal Weakness, No Sensory Changes Psychological: No Symptoms Endocrine: No Symptoms Hematologic/Lymphatic: No Easy Bleeding, No Easy Bruising All Other Systems: Reviewed and Negative <HAN MARTEL - Last Filed: 06/25/24 19:09> - Past Medical History Pertinent Past Medical History: Yes Neurological History: Seizures Cardiac History: Other Musculoskeletal History: Fibromyalgia, Rheumatoid Arthritis Psycho-Social History: Anxiety, Depression, Panic Disorder Other Medical History: STILLS disease. mitral valve prolapse, with arrythmia. migraines. 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, epilepsy - Past Surgical History Past Surgical History: Yes Musculoskeletal: Other Female Surgical History: Section Other Surgical History: csection, tonsillectomy - Female History Hx Last Menstrual Period: Jan 10 2024 - Social History Smoking Status: Never smoker Exposure to second hand smoke: No Drug Use: none Patient Lives Alone: Yes - Social Determinants of Health Will the patient participate in the screening: Yes Do you worry about a steady place to live?: No In the past 12 months,have you had to go without utilities?: No Transportation Issues: No Has anyone in your support network made you feel unsafe?: No Have you or anyone in your house had to go without enough: No <HAN MARTEL - Last Filed: 06/25/24 19:09> - Physical Exam General Appearance: no apparent distress, alert Eye Exam: bilateral eye: PERRL, EOMI Ear Exam: bilateral ear: auricle normal, canal normal, TM normal Nasal Exam: normal inspection, No active bleeding, No discharge, No sinus tenderness Throat Exam: pharynx normal, dental tenderness (Tooth #21), moist mucus membranes, No excessive drooling, No mandibular swelling, No pharynx swelling, No pharynx tenderness, No tongue swollen, No tonsillar exudate, No tonsillar swelling, No trismus, No uvula swelling Neck Exam: supple, full range of motion, trachea midline, No limited range of motion, No lymphadenopathy (R), No lymphadenopathy (L), No tender lateral, No Brudzinski's sign, No Kernig's sign Cardiovascular/Respiratory Exam: normal breath sounds, regular rate/rhythm, no JVD, no M/R/G Abdominal Exam: non-tender, soft, No guarding, No tenderness Neurologic Exam: alert, oriented x 3, cooperative, organizational development specialist II-XII nml as tested, sensation nml, No motor deficits, No sensory deficit Skin Exam: normal color, warm, dry SpO2 Interpretation: normal SpO2: 99 O2 Delivery: Room Air <HAN MARTEL - Last Filed: 06/25/24 19:09> - Nursing Vital Signs Nursing Vital Signs: Initial Vital Signs Blood Pressure 153/102 06/25/24 18:00 O2 Sat by Pulse Oximetry 100 06/25/24 18:00 Pain Scale Pain Intensity 8 - Course Nursing assessment & vital signs reviewed: Yes <HAN MARTEL - Last Filed: 06/25/24 19:09> Ordered Tests: Active Orders 24 hr Category Date Time Status Heart Tones-ED STAT Care 06/25/24 18:16 Active IV Insertion STAT Care 06/25/24 18:30 Active ACO SDOH Referral ONCE Cons 06/25/24 18:20 Active CBC W DIFF Stat Lab 06/25/24 18:30 Completed CMP Stat Lab 06/25/24 18:30 Completed FIBRINOGEN Stat Lab 06/25/24 18:30 Completed MAGNESIUM Stat Lab 06/25/24 18:30 Completed PROTIME WITH INR Stat Lab 06/25/24 18:30 Completed UA W/RFX UR CULTURE Stat Lab 06/25/24 18:15 Completed Medication Summary Discontinued Medications Generic Name Dose Route Start Last Admin Trade Name Domi PRN Reason Stop Dose Admin Hydrocodone Bitart/Acetaminophen 1 tab 06/25/24 18:11 06/25/24 19:29 Hydrocodone/Apap 5/325 1 Tab Tablet PO 06/25/24 18:12 Not Given STAT ONE Amoxicillin 500 mg 06/25/24 18:11 06/25/24 19:30 Amoxicillin Trihydrate 500 Mg Capsule PO 06/25/24 18:12 Not Given STAT ONE Clindamycin HCl 300 mg 06/25/24 18:29 06/25/24 19:29 Clindamycin Hcl 150 Mg Capsule PO 06/25/24 18:30 Not Given STAT ONE Sodium Chloride 1,000 mls @ 999 mls/hr 06/25/24 18:40 06/25/24 19:40 Sodium Chloride 0.9% 1000 Ml IV 06/25/24 19:40 999 mls/hr .Q1H1M STA Administration Sodium Chloride Confirm 06/25/24 19:36 Sodium Chloride 0.9% 1000 Ml Administered 06/25/24 19:37 Dose 1,000 mls @ ud .ROUTE .STK-MED ONE Labetalol HCl 10 mg 06/25/24 18:41 06/25/24 19:40 Labetalol Hcl 20 Mg/4 Ml Disp.Syringe IV 06/25/24 18:42 10 mg STAT ONE Administration Labetalol HCl Confirm 06/25/24 19:36 Labetalol Hcl 20 Mg/4 Ml Disp.Syringe Administered 06/25/24 19:37 Dose 20 mg IV .STK-MED ONE Lab/Rad Data: Laboratory Result Diagrams 06/25/24 18:30 06/25/24 18:30 Laboratory Results 06/25/24 06/25/24 06/25/24 Range/Units 18:30 18:30 18:30 WBC (3.98-10.04) x10^3/uL RBC (3.93-5.22) x10^6/uL Hgb (11.2-15.7) g/dL Hct (34.1-44.9) % MCV (79.4-94.8) fL MCH (25.6-32.2) pg MCHC (32.2-35.5) g/dL RDW (11.7-14.4) % Plt Count (182-369) x10^3/uL MPV (9.4-12.3) fL Gran % (34.0-71.1) % Immature Gran % (Auto) (0.001-0.429) % Nucleat RBC Rel Count (0.00-0.2) % Eos # (Auto) (0.04-0.36) x10^3/uL Immature Gran # (Auto) (0.001-0.031) x10^3u/L Absolute Lymphs (auto) (1.18-3.74) x10^3/uL Absolute Monos (auto) (0.24-0.86) x10^3/uL Absolute Nucleated RBC (0.00-0.012) x10^3u/L Lymphocytes % (19.3-51.7) % Monocytes % (4.7-12.5) % Eosinophils % (0.7-5.8) % Basophils % (0.1-1.2) % Absolute Granulocytes (1.56-6.13) x10^3/uL Basophils # (0.01-0.08) x10^3/uL PT 9.8 (9.4-12.5) SECONDS INR 0.89 (0.8-3.0) Fibrinogen Activity 481 H (200-400) mg/dL Sodium (135-145) mmol/L Potassium (3.5-5.1) mmol/L Chloride (98-107) mmol/L Carbon Dioxide (22-30) mmol/L Anion Gap (5-15) MEQ/L BUN (7-17) mg/dL Creatinine (0.52-1.04) mg/dL Estimated GFR ML/MIN Glucose (74-106) mg/dL Calcium (8.4-10.2) mg/dL Magnesium 2.0 (1.6-2.3) mg/dL Total Bilirubin (0.2-1.3) mg/dL AST (14-36) U/L ALT (0-35) U/L Alkaline Phosphatase (38-126) U/L Serum Total Protein (6.3-8.2) g/dL Albumin (3.5-5.0) g/dL Urine Color (Yellow) Urine Appearance (Clear) Urine pH (4.6-8.0) Ur Specific [place] (1.005-1.030) Urine Protein (Negative) Urine Glucose (UA) (Negative) mg/dL Urine Ketones (Negative) Urine Blood (Negative) Urine Nitrite (Negative) Urine Bilirubin (Negative) Urine Urobilinogen (0.2) mg/dL Ur Leukocyte Esterase (Negative) U Hyaline Cast (Auto) (0-2) /LPF Urine Microscopic RBC (0-5) /HPF Urine Microscopic WBC (0-5) /HPF Ur Epithelial Cells (None Seen) /HPF Urine Bacteria (None Seen) /HPF Urine Culture Reflexed (NO) 06/25/24 06/25/24 06/25/24 Range/Units 18:30 18:30 18:15 WBC 14.6 H (3.98-10.04) x10^3/uL RBC 3.87 L (3.93-5.22) x10^6/uL Hgb 11.9 (11.2-15.7) g/dL Hct 35.6 (34.1-44.9) % MCV 92.0 (79.4-94.8) fL MCH 30.7 (25.6-32.2) pg MCHC 33.4 (32.2-35.5) g/dL RDW 13.6 (11.7-14.4) % Plt Count 408 H (182-369) x10^3/uL MPV 8.7 L (9.4-12.3) fL Gran % 76.4 H (34.0-71.1) % Immature Gran % (Auto) 0.5 H (0.001-0.429) % Nucleat RBC Rel Count 0.0 (0.00-0.2) % Eos # (Auto) 0.10 (0.04-0.36) x10^3/uL Immature Gran # (Auto) 0.08 H (0.001-0.031) x10^3u/L Absolute Lymphs (auto) 2.64 (1.18-3.74) x10^3/uL Absolute Monos (auto) 0.61 (0.24-0.86) x10^3/uL Absolute Nucleated RBC 0.00 (0.00-0.012) x10^3u/L Lymphocytes % 18.1 L (19.3-51.7) % Monocytes % 4.2 L (4.7-12.5) % Eosinophils % 0.7 (0.7-5.8) % Basophils % 0.1 (0.1-1.2) % Absolute Granulocytes 11.10 H (1.56-6.13) x10^3/uL Basophils # 0.02 (0.01-0.08) x10^3/uL PT (9.4-12.5) SECONDS INR (0.8-3.0) Fibrinogen Activity (200-400) mg/dL Sodium 134 L (135-145) mmol/L Potassium 4.3 (3.5-5.1) mmol/L Chloride 105 (98-107) mmol/L Carbon Dioxide 21 L (22-30) mmol/L Anion Gap 11.4 (5-15) MEQ/L BUN 8 (7-17) mg/dL Creatinine 0.60 (0.52-1.04) mg/dL Estimated GFR 122.2 ML/MIN Glucose 79 (74-106) mg/dL Calcium 8.6 (8.4-10.2) mg/dL Magnesium (1.6-2.3) mg/dL Total Bilirubin 0.40 (0.2-1.3) mg/dL AST 21 (14-36) U/L ALT 16 (0-35) U/L Alkaline Phosphatase 100 (38-126) U/L Serum Total Protein 6.8 (6.3-8.2) g/dL Albumin 3.6 (3.5-5.0) g/dL Urine Color Yellow (Yellow) Urine Appearance Clear (Clear) Urine pH 5.5 (4.6-8.0) Ur Specific [place] 1.010 (1.005-1.030) Urine Protein Negative (Negative) Urine Glucose (UA) Negative (Negative) mg/dL Urine Ketones Negative (Negative) Urine Blood Negative (Negative) Urine Nitrite Negative (Negative) Urine Bilirubin Negative (Negative) Urine Urobilinogen 0.2 (0.2) mg/dL Ur Leukocyte Esterase Negative (Negative) U Hyaline Cast (Auto) NONE SEEN (0-2) /LPF Urine Microscopic RBC 0-2 (0-5) /HPF Urine Microscopic WBC 0-2 (0-5) /HPF Ur Epithelial Cells None Seen (None Seen) /HPF Urine Bacteria None Seen (None Seen) /HPF Urine Culture Reflexed NO (NO) - Progress Progress: unchanged <HAN MARTEL - Last Filed: 06/25/24 19:09> <VIRGIL NEGRETE - Last Filed: 06/25/24 20:13> - Progress Progress Note: 06/25/24 18:22 Patient is a 34-year-old G3, P2 at 24 weeks who has had dental pain for the last 1 year, worse over the last 1 week. She does external review of systems or physical exam findings of for broken enamel in the anterior aspect of tooth #21, but no signs of peritonsillar abscess or any other sublingual or posterior oropharyngeal deeper infections on examination with no significant neck findings. Patient was given amoxicillin here in the emergency room as well as 1 [place] to help with her pain control as she had signs of TMJ and tenderness on movement but no signs of trismus or any mandibular or facial abnormalities. Patient understands to follow-up with dentist of her choice for definitive treatment, but should be sent with 1 week course of amoxicillin, as well as a short course of [place] to help with pain control since the Tylenol is not relieving her pain. Patient is a follow-up with her [employer] or her physician continue management of her dental issues or her dentist of choice continue evaluation. At time of discharge, patient left in good condition, had a urine earlier that did not show any abnormalities and she had normal heart tones here in the emergency department. (MESSISHANELLEWAQARGISELLE RASHI) 06/25/24 19:51 Spoke with & discussed pt with Dr. Gross([id number]) who will admit pt to the OB floor. Pt did not receive any norco, amoxicillin or clindamycin this ER visit per nursing staff. Dx: HTN, , tooth abscess. I examined pt at 1940: perrl, eomi, pharynx pink, left mandibular premolars tender with erythematous surrounding gum, TM's not injected, lungs clear, no cardiac rub, abdominal B.S. normal, gravid uterus, no abdominal tenderness, alert & cooperative. 06/25/24 20:01 Dr Mckeon(Pt's OB doctor)([id number]) requested 200 mg labetalol PO be given now; Dr. Gross informed and agreed with medication. 06/25/24 20:12 Pt states she is not allergic to acetaminophen and can take it without problems. (VIRGIL NEGRETE) Medical Desision Making - Diagnostic Testing Diagnostic test were ordered, analyzed, and reviewed by me: Yes - Risk of complications Low Risk: Low risk of morbidity from additional dx testing or treatment The pt has a mod risk of morbidity or mortality based on: Need for prescription drug management <MESSISHANELLEPERRIJOSH RASHI - Last Filed: 06/25/24 19:09> - Departure Critical Care Time: No <HAN MARTEL - Last Filed: 06/25/24 19:09> - Departure Departure Disposition: Observation <VIRGIL NEGRETE - Last Filed: 06/25/24 20:13> - Departure Clinical Impression: Pain due to dental caries, TMJ (temporomandibular joint syndrome), Breakthrough seizure Hypertension Qualifiers: Hypertension type: unspecified Qualified Code(s): I10 - Essential (primary) hypertension Condition: Stable Referrals: SHALINI MALAVE [employer] [Primary Care Provider] - Follow up with PCP 4 days Instructions: Tooth Decay, Adult (DC), Temporomandibular Joint (TMJ) Disorders (DC), Dental Pain (DC)
[2024-06-25 18:30] LABS: Appearance Clear (Clear); Bacteria None Seen /HPF (None Seen); Bilirubin Negative (Negative); Blood Negative (Negative); Epithelial Cells None Seen /HPF (None Seen); Glucose, Urine Negative (Negative); Hyaline Casts NONE SEEN /LPF (0-2); Ketones Negative (Negative); Leukocyte Esterase Negative (Negative); Nitrite Negative (Negative); Ph 5.5 (4.6-8.0); Protein,Urine Dip Negative (Negative); RBC 0-2 /HPF (0-5); Urobilinogen 0.2 mg/dL (0.2); WBC 0-2 /HPF (0-5)
[2024-06-25 18:45] LABS: BASOPHIL % 0.1 % (0.1-1.2); Basophil (Absolute #) 0.02 x10^3/uL (0.01-0.08); Eosinophil % 0.7 % (0.7-5.8); Hematocrit 35.6 % (34.1-44.9); Hemoglobin 11.9 g/dL (11.2-15.7); IMMATURE GRAN # 0.08 x10^3u/L (0.001-0.031); IMMATURE GRAN % 0.5 % (0.001-0.429); Lymphocyte (Absolute #) 2.64 x10^3/uL (1.18-3.74); Lymphocytes % 18.1 % (19.3-51.7); Mean Corpuscular Hemoglobin 30.7 pg (25.6-32.2); Mean Corpuscular Hgb Concent. 33.4 g/dL (32.2-35.5); Mean Platelet Volume 8.7 fL (9.4-12.3); Monocyte (Absolute #) 0.61 x10^3/uL (0.24-0.86); Monocytes % 4.2 % (4.7-12.5); Neutrophil % 76.4 % (34.0-71.1); Platelet Count 408 x10^3/uL (182-369); Red Blood Count 3.87 x10^6/uL (3.93-5.22); Red Cell Distribution Width 13.6 % (11.7-14.4); White Blood Count 14.6 x10^3/uL (3.98-10.04)
[2024-06-25 18:58] LABS: ALBUMIN 3.6 g/dL (3.5-5.0); ANION GAP 11.4 MEQ/L (5-15); BILIRUBIN,TOTAL 0.4 mg/dL (0.2-1.3); Calcium 8.6 mg/dL (8.4-10.2); Creatinine 1 0.6 mg/dL (0.52-1.04); EST GLOMERULAR FILTRATION RATE 122.2 ML/MIN; Potassium 4.3 mmol/L (3.5-5.1); Total Protein 6.8 g/dL (6.3-8.2)
[2024-06-25 18:59] LABS: INR 0.89 (0.8-3.0); PROTIME 9.8 SECONDS (9.4-12.5)
[2024-06-25] MEDS: NORCO 5/325 MG PO ONE (19:29)
[2024-06-25] MEDS: CLEOCIN 150 MG CAPSULE PO ONE (19:29)
[2024-06-25] MEDS: AMOXIL 500 MG PO ONE (19:30)
[2024-06-25] MEDS ORDERED: Sodium Chloride 0.9% 1000 ML 1,000 ML ONE (19:36)
[2024-06-25] MEDS ORDERED: TRANDATE 20 MG/4 ML SYRINGE IV ONE (19:36)
[2024-06-25] MEDS: TRANDATE 20 MG/4 ML SYRINGE IV ONE (19:40)
[2024-06-25] MEDS: Sodium Chloride 0.9% 1000 ML 1,000 ML IV STA (19:40)
[2024-06-25] MEDS ORDERED: TYLENOL 325 MG ONE (20:12)
[2024-06-25] MEDS ORDERED: ROCEPHIN 1 GM / 100 ML NaCl 1 GM/100 ML IVPB IV ONE (20:12)
[2024-06-25] MEDS: TYLENOL 325 MG PO ONE (20:18)
[2024-06-25] MEDS: ROCEPHIN 1 GM / 100 ML NaCl 1 GM/100 ML IVPB IV ONE (20:18)
[2024-06-25 20:51] VITALS: O2SAT 97
[2024-06-25] MEDS: Trandate 100 MG PO SCH (20:56)
[2024-06-25] MEDS ORDERED: KEPPRA ONE (21:56)
[2024-06-25] MEDS ORDERED: Keppra 250 MG PO SCH (22:00)
[2024-06-25] MEDS: KEPPRA PO SCH (22:12)
[2024-06-26] MEDS: TYLENOL EXTRA STRENGTH 500 MG PO PRN (01:43)
[2024-06-26] MEDS ORDERED: TYLENOL 325 MG PO PRN (05:38)
--- NOTE | 2024-06-26 08:49 | PCM.SSS ---
History of Present Illness - Chief Complaint Chief Complaint: Hypertension; ; tooth abscess History of Present Illness: is a 34 year old female at 23 5/7wks EGA with a history of absence seizures, care with Dr Mckeon. She came to the ER via ambulance last evening with severe dental pain and reported seizure prior to arrival. she did not have a generalized seizure but a brief period of unresponsiveness, she complains of dental pain x 1 year but severe for the last week. unable to see dentist because she can't find anyone who will accept her insurance. - Review of Systems Constitutional: No Fever, No Chills Ears, Nose, & Throat: Mouth Pain Respiratory: No Cough, No Short Of Breath Cardiac: No Chest Pain, No Edema, No Syncope Abdominal/Gastrointestinal: No Abdominal Pain, No Nausea, No Vomiting, No Diarrhea Skin: No Rash All Other Systems: Reviewed and Negative Medications & Allergies Home Medications: Home Medication List Venlafaxine HCl [Venlafaxine HCl ER] 150 mg PO DAILY 30 Days #30 cap 04/03/22 [Rx Confirmed 06/25/24] Venlafaxine HCl 75 mg PO HS 02/23/24 [History Confirmed 06/25/24] Pnv No.95/Ferrous Fum/Folic AC [ Vitamins Tablet] 1 tab PO DAILY 03/04/24 [History Confirmed 06/25/24] Amoxicillin 500 mg PO TID #30 tablet 06/26/24 [Rx] Labetalol HCl 100 mg [Trandate 100 MG] 200 mg PO BID #120 tablet 06/26/24 [Rx] Levetiracetam [Keppra] 500 mg PO 06/26/24 [History] Allergies/Adverse Reactions: Allergies Allergy/AdvReac Type Severity Reaction Status Date / Time naproxen Allergy Severe Verified 06/25/24 18:11 acetaminophen Allergy Mild Verified 06/25/24 18:11 [From Darvocet-N 100] codeine Allergy Mild Verified 06/25/24 18:11 hydromorphone HCl Allergy Mild Verified 06/25/24 18:11 [From Dilaudid] morphine Allergy Mild Verified 06/25/24 18:11 ondansetron HCl [From Zofran] Allergy Mild Verified 06/25/24 18:11 propoxyphene napsylate Allergy Mild Verified 06/25/24 18:11 [From Darvocet-N 100] sumatriptan [From Imitrex] Allergy Mild Verified 06/25/24 18:11 sumatriptan succinate Allergy Mild Verified 06/25/24 18:11 [From Imitrex] topiramate [From Topamax] Allergy Mild Verified 06/25/24 18:11 pregabalin [From Lyrica] Allergy Verified 06/25/24 18:11 - Past Medical History Past Medical History: Yes Neurological History: Seizures Cardiac History: Other Musculoskelatal History: Fibromyalgia, Rheumatoid Arthritis Pyscho-Social History: Anxiety, Depression, Panic Disorder Comment: STILLS disease. mitral valve prolapse, with arrythmia. migraines. 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: No Have you or anyone in your house had to go without enough: No Transportation Issues: No Has anyone in your support network made you feel unsafe?: No Comment: Dental Health Care that will accept her insurance - Physical Exam Vital Signs: Vital Signs - 24 hr Temp Pulse Resp BP BP Pulse Ox 06/26/24 06:11 90 16 128/80 06/26/24 02:00 98.6 F 65 16 103/62 06/25/24 22:25 133/84 06/25/24 20:51 98.5 F 95 H 18 151/95 97 06/25/24 20:00 95 H 18 147/92 98 06/25/24 19:59 96 H 18 141/95 99 06/25/24 19:45 98 H 153/101 98 06/25/24 19:41 100 H 150/103 98 06/25/24 19:30 105 H 158/103 98 06/25/24 19:15 101 H 150/106 06/25/24 19:10 99 06/25/24 19:00 94 H 20 150/106 98 06/25/24 18:45 89 16 144/106 98 06/25/24 18:30 82 16 152/106 98 06/25/24 18:26 91 H 17 151/120 97 06/25/24 18:07 98.9 F 97 H 18 153/102 99 06/25/24 18:00 153/102 100 General Appearance: no apparent distress, other (sleeping in OB room upon arrival) Neurologic Exam: alert, cooperative Ears, Nose, Throat Exam: other (poor dentition, left lower premolar nearly 1/2 caries) Respiratory Exam: normal breath sounds, lungs clear, No respiratory distress Cardiovascular Exam: regular rate/rhythm, normal heart sounds, normal peripheral pulses Gastrointestinal/Abdomen Exam: soft, other (gravid) Results - Labs Lab/Micro Results: Lab Results-Last 24 Hours 06/25/24 06/25/24 06/25/24 Range/Units 18:15 18:30 18:30 WBC 14.6 H (3.98-10.04) x10^3/uL RBC 3.87 L (3.93-5.22) x10^6/uL Hgb 11.9 (11.2-15.7) g/dL Hct 35.6 (34.1-44.9) % MCV 92.0 (79.4-94.8) fL MCH 30.7 (25.6-32.2) pg MCHC 33.4 (32.2-35.5) g/dL RDW 13.6 (11.7-14.4) % Plt Count 408 H (182-369) x10^3/uL MPV 8.7 L (9.4-12.3) fL Gran % 76.4 H (34.0-71.1) % Immature Gran % (Auto) 0.5 H (0.001-0.429) % Nucleat RBC Rel Count 0.0 (0.00-0.2) % Eos # (Auto) 0.10 (0.04-0.36) x10^3/uL Immature Gran # (Auto) 0.08 H (0.001-0.031) x10^3u/L Absolute Lymphs (auto) 2.64 (1.18-3.74) x10^3/uL Absolute Monos (auto) 0.61 (0.24-0.86) x10^3/uL Absolute Nucleated RBC 0.00 (0.00-0.012) x10^3u/L Lymphocytes % 18.1 L (19.3-51.7) % Monocytes % 4.2 L (4.7-12.5) % Eosinophils % 0.7 (0.7-5.8) % Basophils % 0.1 (0.1-1.2) % Absolute Granulocytes 11.10 H (1.56-6.13) x10^3/uL Basophils # 0.02 (0.01-0.08) x10^3/uL PT (9.4-12.5) SECONDS INR (0.8-3.0) Fibrinogen Activity (200-400) mg/dL Sodium 134 L (135-145) mmol/L Potassium 4.3 (3.5-5.1) mmol/L Chloride 105 (98-107) mmol/L Carbon Dioxide 21 L (22-30) mmol/L Anion Gap 11.4 (5-15) MEQ/L BUN 8 (7-17) mg/dL Creatinine 0.60 (0.52-1.04) mg/dL Estimated GFR 122.2 ML/MIN Glucose 79 (74-106) mg/dL Calcium 8.6 (8.4-10.2) mg/dL Magnesium (1.6-2.3) mg/dL Total Bilirubin 0.40 (0.2-1.3) mg/dL AST 21 (14-36) U/L ALT 16 (0-35) U/L Alkaline Phosphatase 100 (38-126) U/L Serum Total Protein 6.8 (6.3-8.2) g/dL Albumin 3.6 (3.5-5.0) g/dL Urine Color Yellow (Yellow) Urine Appearance Clear (Clear) Urine pH 5.5 (4.6-8.0) Ur Specific [place] 1.010 (1.005-1.030) Urine Protein Negative (Negative) Urine Glucose (UA) Negative (Negative) mg/dL Urine Ketones Negative (Negative) Urine Blood Negative (Negative) Urine Nitrite Negative (Negative) Urine Bilirubin Negative (Negative) Urine Urobilinogen 0.2 (0.2) mg/dL Ur Leukocyte Esterase Negative (Negative) U Hyaline Cast (Auto) NONE SEEN (0-2) /LPF Urine Microscopic RBC 0-2 (0-5) /HPF Urine Microscopic WBC 0-2 (0-5) /HPF Ur Epithelial Cells None Seen (None Seen) /HPF Urine Bacteria None Seen (None Seen) /HPF Urine Culture Reflexed NO (NO) 06/25/24 06/25/24 06/25/24 Range/Units 18:30 18:30 18:30 WBC (3.98-10.04) x10^3/uL RBC (3.93-5.22) x10^6/uL Hgb (11.2-15.7) g/dL Hct (34.1-44.9) % MCV (79.4-94.8) fL MCH (25.6-32.2) pg MCHC (32.2-35.5) g/dL RDW (11.7-14.4) % Plt Count (182-369) x10^3/uL MPV (9.4-12.3) fL Gran % (34.0-71.1) % Immature Gran % (Auto) (0.001-0.429) % Nucleat RBC Rel Count (0.00-0.2) % Eos # (Auto) (0.04-0.36) x10^3/uL Immature Gran # (Auto) (0.001-0.031) x10^3u/L Absolute Lymphs (auto) (1.18-3.74) x10^3/uL Absolute Monos (auto) (0.24-0.86) x10^3/uL Absolute Nucleated RBC (0.00-0.012) x10^3u/L Lymphocytes % (19.3-51.7) % Monocytes % (4.7-12.5) % Eosinophils % (0.7-5.8) % Basophils % (0.1-1.2) % Absolute Granulocytes (1.56-6.13) x10^3/uL Basophils # (0.01-0.08) x10^3/uL PT 9.8 (9.4-12.5) SECONDS INR 0.89 (0.8-3.0) Fibrinogen Activity 481 H (200-400) mg/dL Sodium (135-145) mmol/L Potassium (3.5-5.1) mmol/L Chloride (98-107) mmol/L Carbon Dioxide (22-30) mmol/L Anion Gap (5-15) MEQ/L BUN (7-17) mg/dL Creatinine (0.52-1.04) mg/dL Estimated GFR ML/MIN Glucose (74-106) mg/dL Calcium (8.4-10.2) mg/dL Magnesium 2.0 (1.6-2.3) mg/dL Total Bilirubin (0.2-1.3) mg/dL AST (14-36) U/L ALT (0-35) U/L Alkaline Phosphatase (38-126) U/L Serum Total Protein (6.3-8.2) g/dL Albumin (3.5-5.0) g/dL Urine Color (Yellow) Urine Appearance (Clear) Urine pH (4.6-8.0) Ur Specific [place] (1.005-1.030) Urine Protein (Negative) Urine Glucose (UA) (Negative) mg/dL Urine Ketones (Negative) Urine Blood (Negative) Urine Nitrite (Negative) Urine Bilirubin (Negative) Urine Urobilinogen (0.2) mg/dL Ur Leukocyte Esterase (Negative) U Hyaline Cast (Auto) (0-2) /LPF Urine Microscopic RBC (0-5) /HPF Urine Microscopic WBC (0-5) /HPF Ur Epithelial Cells (None Seen) /HPF Urine Bacteria (None Seen) /HPF Urine Culture Reflexed (NO) Assessment/Plan (1) Dental infection Current Visit: Yes Status: Acute Assessment & Plan: plan to continue amoxicillin, pain controlled with tylenol. patient sleeping upon my arrival Code(s): K04.7 - PERIAPICAL ABSCESS WITHOUT SINUS (2) Hypertension Current Visit: Yes Status: Acute Qualifiers: Hypertension type: unspecified Qualified Code(s): I10 - Essential (primary) hypertension Assessment & Plan: continue labetalol, bp likely exacerbated by dental pain last evening. normotensive this am and HELLP labs are normal, no proteinuria on u/a Code(s): I10 - ESSENTIAL (PRIMARY) HYPERTENSION (3) Seizure Current Visit: No Status: Acute Code(s): R56.9 - UNSPECIFIED CONVULSIONS (4) Current Visit: Yes Status: Acute Code(s): Z34.90 - ENCNTR FOR SUPRVSN OF NORMAL , UNSP, UNSP TRIMESTER Hospital Summary - Vitals & Intake/Output Vital Signs: Vital Signs Temperature 98.6 F 06/26/24 02:00 Pulse Rate 90 06/26/24 06:11 Respiratory Rate 16 06/26/24 06:11 Blood Pressure 128/80 06/26/24 06:11 O2 Sat by Pulse Oximetry 97 06/25/24 20:51 Intake & Output: Intake & Output 06/23/24 06/24/24 06/25/24 06/26/24 11:59 11:59 11:59 11:59 Weight 78.471 kg - Lab Result Diagrams: 06/25/24 18:30 06/25/24 18:30 Lab Results-Last 24 Hrs: Lab Results-Last 24 Hours 06/25/24 06/25/24 06/25/24 Range/Units 18:15 18:30 18:30 WBC 14.6 H (3.98-10.04) x10^3/uL RBC 3.87 L (3.93-5.22) x10^6/uL Hgb 11.9 (11.2-15.7) g/dL Hct 35.6 (34.1-44.9) % MCV 92.0 (79.4-94.8) fL MCH 30.7 (25.6-32.2) pg MCHC 33.4 (32.2-35.5) g/dL RDW 13.6 (11.7-14.4) % Plt Count 408 H (182-369) x10^3/uL MPV 8.7 L (9.4-12.3) fL Gran % 76.4 H (34.0-71.1) % Immature Gran % (Auto) 0.5 H (0.001-0.429) % Nucleat RBC Rel Count 0.0 (0.00-0.2) % Eos # (Auto) 0.10 (0.04-0.36) x10^3/uL Immature Gran # (Auto) 0.08 H (0.001-0.031) x10^3u/L Absolute Lymphs (auto) 2.64 (1.18-3.74) x10^3/uL Absolute Monos (auto) 0.61 (0.24-0.86) x10^3/uL Absolute Nucleated RBC 0.00 (0.00-0.012) x10^3u/L Lymphocytes % 18.1 L (19.3-51.7) % Monocytes % 4.2 L (4.7-12.5) % Eosinophils % 0.7 (0.7-5.8) % Basophils % 0.1 (0.1-1.2) % Absolute Granulocytes 11.10 H (1.56-6.13) x10^3/uL Basophils # 0.02 (0.01-0.08) x10^3/uL PT (9.4-12.5) SECONDS INR (0.8-3.0) Fibrinogen Activity (200-400) mg/dL Sodium 134 L (135-145) mmol/L Potassium 4.3 (3.5-5.1) mmol/L Chloride 105 (98-107) mmol/L Carbon Dioxide 21 L (22-30) mmol/L Anion Gap 11.4 (5-15) MEQ/L BUN 8 (7-17) mg/dL Creatinine 0.60 (0.52-1.04) mg/dL Estimated GFR 122.2 ML/MIN Glucose 79 (74-106) mg/dL Calcium 8.6 (8.4-10.2) mg/dL Magnesium (1.6-2.3) mg/dL Total Bilirubin 0.40 (0.2-1.3) mg/dL AST 21 (14-36) U/L ALT 16 (0-35) U/L Alkaline Phosphatase 100 (38-126) U/L Serum Total Protein 6.8 (6.3-8.2) g/dL Albumin 3.6 (3.5-5.0) g/dL Urine Color Yellow (Yellow) Urine Appearance Clear (Clear) Urine pH 5.5 (4.6-8.0) Ur Specific [place] 1.010 (1.005-1.030) Urine Protein Negative (Negative) Urine Glucose (UA) Negative (Negative) mg/dL Urine Ketones Negative (Negative) Urine Blood Negative (Negative) Urine Nitrite Negative (Negative) Urine Bilirubin Negative (Negative) Urine Urobilinogen 0.2 (0.2) mg/dL Ur Leukocyte Esterase Negative (Negative) U Hyaline Cast (Auto) NONE SEEN (0-2) /LPF Urine Microscopic RBC 0-2 (0-5) /HPF Urine Microscopic WBC 0-2 (0-5) /HPF Ur Epithelial Cells None Seen (None Seen) /HPF Urine Bacteria None Seen (None Seen) /HPF Urine Culture Reflexed NO (NO) 06/25/24 06/25/24 06/25/24 Range/Units 18:30 18:30 18:30 WBC (3.98-10.04) x10^3/uL RBC (3.93-5.22) x10^6/uL Hgb (11.2-15.7) g/dL Hct (34.1-44.9) % MCV (79.4-94.8) fL MCH (25.6-32.2) pg MCHC (32.2-35.5) g/dL RDW (11.7-14.4) % Plt Count (182-369) x10^3/uL MPV (9.4-12.3) fL Gran % (34.0-71.1) % Immature Gran % (Auto) (0.001-0.429) % Nucleat RBC Rel Count (0.00-0.2) % Eos # (Auto) (0.04-0.36) x10^3/uL Immature Gran # (Auto) (0.001-0.031) x10^3u/L Absolute Lymphs (auto) (1.18-3.74) x10^3/uL Absolute Monos (auto) (0.24-0.86) x10^3/uL Absolute Nucleated RBC (0.00-0.012) x10^3u/L Lymphocytes % (19.3-51.7) % Monocytes % (4.7-12.5) % Eosinophils % (0.7-5.8) % Basophils % (0.1-1.2) % Absolute Granulocytes (1.56-6.13) x10^3/uL Basophils # (0.01-0.08) x10^3/uL PT 9.8 (9.4-12.5) SECONDS INR 0.89 (0.8-3.0) Fibrinogen Activity 481 H (200-400) mg/dL Sodium (135-145) mmol/L Potassium (3.5-5.1) mmol/L Chloride (98-107) mmol/L Carbon Dioxide (22-30) mmol/L Anion Gap (5-15) MEQ/L BUN (7-17) mg/dL Creatinine (0.52-1.04) mg/dL Estimated GFR ML/MIN Glucose (74-106) mg/dL Calcium (8.4-10.2) mg/dL Magnesium 2.0 (1.6-2.3) mg/dL Total Bilirubin (0.2-1.3) mg/dL AST (14-36) U/L ALT (0-35) U/L Alkaline Phosphatase (38-126) U/L Serum Total Protein (6.3-8.2) g/dL Albumin (3.5-5.0) g/dL Urine Color (Yellow) Urine Appearance (Clear) Urine pH (4.6-8.0) Ur Specific [place] (1.005-1.030) Urine Protein (Negative) Urine Glucose (UA) (Negative) mg/dL Urine Ketones (Negative) Urine Blood (Negative) Urine Nitrite (Negative) Urine Bilirubin (Negative) Urine Urobilinogen (0.2) mg/dL Ur Leukocyte Esterase (Negative) U Hyaline Cast (Auto) (0-2) /LPF Urine Microscopic RBC (0-5) /HPF Urine Microscopic WBC (0-5) /HPF Ur Epithelial Cells (None Seen) /HPF Urine Bacteria (None Seen) /HPF Urine Culture Reflexed (NO) - Discharge Disposition: Home, Self-Care Condition: Stable Prescriptions: New Amoxicillin 500 mg PO TID #30 tablet Labetalol HCl 100 mg [Trandate 100 MG] 200 mg PO BID #120 tablet Continue Venlafaxine HCl [Venlafaxine HCl ER] 150 mg PO DAILY 30 Days #30 cap Venlafaxine HCl 75 mg PO HS Pnv No.95/Ferrous Fum/Folic AC [ Vitamins Tablet] 1 tab PO DAILY Levetiracetam [Keppra] 500 mg PO Additional Instructions: take tylenol 500mg 1 or 2 tabs every 6 hours as needed for pain. see a dentist as soon as possible. continue your keppra and start labetalol 200mg twice a day. see Dr Mckeon next week. Follow up with: RUSTY MCKEON DO [ACTIVE STAFF] - 1 Week
[2024-06-26 09:25] VITALS: BP 129/82; PULSE 81; RESP 18; TEMP 98.5
[2024-06-26] MEDS ORDERED: AMOXIL 500 MG PO SCH (10:00)
== END 2024-06-26 09:15 | disposition home or self-care (01) ==
LOC: ED 17:23 → OB 20:02
PROVIDERS: ADMIT Family Medicine; ATTEND Family Medicine
DX: K04.7 Periapical abscess without sinus (principal); O16.2 Unspecified maternal hypertension, second trimester; Z3A.23 23 weeks gestation of pregnancy; R56.9 Unspecified convulsions
CPT/HCPCS: 36000; 36415; 59025; 80053; 81001; 83735; 85025; 85384; 85610; 96365; 96374; 99213; 99285; G0378; J0696; A9270-GY

== ENCOUNTER 2024-08-24 14:46 | Observation (INO) | payer OTHER ==
[2024-08-24 16:07] LABS: Absolute Neutrophil Ct (ANC) 10.25 x10^3/uL (1.56-6.13); BASOPHIL % 0.2 % (0.1-1.2); Basophil (Absolute #) 0.02 x10^3/uL (0.01-0.08); Eosinophil % 0.3 % (0.7-5.8); Eosinophil (Absolute #) 0.04 x10^3/uL (0.04-0.36); Hematocrit 36.2 % (34.1-44.9); Hemoglobin 12.1 g/dL (11.2-15.7); IMMATURE GRAN # 0.08 x10^3u/L (0.001-0.031); IMMATURE GRAN % 0.6 % (0.001-0.429); Lymphocyte (Absolute #) 2.14 x10^3/uL (1.18-3.74); Lymphocytes % 16.4 % (19.3-51.7); Mean Corpuscular Hemoglobin 30.4 pg (25.6-32.2); Mean Corpuscular Hgb Concent. 33.4 g/dL (32.2-35.5); Mean Platelet Volume 9.1 fL (9.4-12.3); Monocyte (Absolute #) 0.55 x10^3/uL (0.24-0.86); Monocytes % 4.2 % (4.7-12.5); Neutrophil % 78.3 % (34.0-71.1); Platelet Count 375 x10^3/uL (182-369); Red Blood Count 3.98 x10^6/uL (3.93-5.22); Red Cell Distribution Width 13.6 % (11.7-14.4); White Blood Count 13.1 x10^3/uL (3.98-10.04)
[2024-08-24 16:14] LABS: Appearance Clear (Clear); Bacteria None Seen /HPF (None Seen); Bilirubin Negative (Negative); Blood Negative (Negative); Epithelial Cells Few /HPF (None Seen); Glucose, Urine Negative (Negative); Hyaline Casts NONE SEEN /LPF (0-2); Ketones 15 (Negative); Leukocyte Esterase Negative (Negative); Nitrite Negative (Negative); Ph 8.5 (4.6-8.0); Protein,Urine Dip Trace (Negative); RBC 0-2 /HPF (0-5); Specific Gravity 1.015 (1.005-1.030); Urobilinogen 0.2 mg/dL (0.2)
[2024-08-24 16:26] LABS: ALBUMIN 3.7 g/dL (3.5-5.0); ANION GAP 7.7 MEQ/L (5-15); BILIRUBIN,TOTAL 0.3 mg/dL (0.2-1.3); Creatinine 1 0.61 mg/dL (0.52-1.04); EST GLOMERULAR FILTRATION RATE 121.7 ML/MIN; Potassium 3.8 mmol/L (3.5-5.1); Total Protein 6.7 g/dL (6.3-8.2); Uric Acid 4.7 mg/dL (2.6-6.0)
[2024-08-24 16:31] LABS: Creatinine, Urine Random 83.2 mg/dl; Protein Creatinine Ratio, Ran. 0.1 mg/mg (0.0-0.15)
[2024-08-24 16:39] LABS: Amphetamine,Urine NEGATIVE (NEGATIVE); Barbiturate,Urine NEGATIVE (NEGATIVE); Benzodiazepine,Urine NEGATIVE (NEGATIVE); Cocaine,Urine NEGATIVE (NEGATIVE); Methadone,Urine NEGATIVE (NEGATIVE); Opiate,Urine NEGATIVE (NEGATIVE); PCP,Urine NEGATIVE (NEGATIVE); THC,Urine POSITIVE (NEGATIVE)
[2024-08-24] MEDS: TRANDATE 20 MG/4 ML SYRINGE IV ONE ×3 (17:04→22:46)
[2024-08-24] MEDS: Lactated Ringers 1,000 ML IV ONE (17:07)
[2024-08-24] MEDS: Trandate 100 MG PO SCH (19:50)
[2024-08-24] MEDS ORDERED: Ambien 5 MG Tablet ONE (22:50)
[2024-08-24] MEDS: TYLENOL EXTRA STRENGTH 500 MG PO PRN (22:50)
[2024-08-24] MEDS: Ambien 5 MG Tablet PO SCH (22:51)
[2024-08-25] MEDS: Compazine 10 MG/2 ML IV ONE (08:03)
[2024-08-25] MEDS: KEPPRA PO SCH (10:09)
[2024-08-25] MEDS: Paxil 20 MG PO SCH (10:10)
[2024-08-25] MEDS: Effexor XR 75 MG PO SCH (10:10)
--- NOTE | 2024-08-25 10:41 | PCM.HP ---
History of Present Illness - Chief Complaint Chief Complaint: nausea History of Present Illness: is a 34 year old female. 34 yo iup 32 2/7 wks gestation was admitted for evaluation of elevated bp. pt was supposed to have been on her labetolol 200mg bid that was prescribed from jun 26 however states having normal bp at home and elected to stop her medication. pt was noted having several elevated bp in labor delivery and was given multiple doses of iv labetolol to try and control her bp. pt with hx of seizure disorder supposed to be on keppra 500mg bid however not taking as scheduled and supposed to be taking her effexor however states not helping her for anxiety. pt has missed her last app[facility] [place] on jul 28 due to noncompliance and current urine toxicology indicating the use of thc. Medications & Allergies Home Medications: Home Medication List Venlafaxine HCl [Venlafaxine HCl ER] 150 mg PO DAILY 30 Days #30 cap 04/03/22 [Rx Confirmed 08/25/24] Venlafaxine HCl 75 mg PO HS 02/23/24 [History Confirmed 08/25/24] Pnv No.95/Ferrous Fum/Folic AC [ Vitamins Tablet] 1 tab PO DAILY 03/04/24 [History Confirmed 08/25/24] Labetalol HCl 100 mg [Trandate 100 MG] 200 mg PO BID #120 tablet 06/26/24 [Rx Confirmed 08/25/24] Levetiracetam [Keppra] 500 mg PO 06/26/24 [History] Allergies/Adverse Reactions: Allergies Allergy/AdvReac Type Severity Reaction Status Date / Time naproxen Allergy Severe Verified 06/25/24 18:11 acetaminophen Allergy Mild Verified 06/25/24 18:11 [From Darvocet-N 100] codeine Allergy Mild Verified 06/25/24 18:11 hydromorphone HCl Allergy Mild Verified 06/25/24 18:11 [From Dilaudid] morphine Allergy Mild Verified 06/25/24 18:11 ondansetron HCl [From Zofran] Allergy Mild Verified 06/25/24 18:11 propoxyphene napsylate Allergy Mild Verified 06/25/24 18:11 [From Darvocet-N 100] sumatriptan [From Imitrex] Allergy Mild Verified 06/25/24 18:11 sumatriptan succinate Allergy Mild Verified 06/25/24 18:11 [From Imitrex] topiramate [From Topamax] Allergy Mild Verified 06/25/24 18:11 pregabalin [From Lyrica] Allergy Verified 06/25/24 18:11 - Past Medical History Past Medical History: Yes Neurological History: Seizures, Other (seizure disorder) Cardiac History: Other Musculoskelatal History: Fibromyalgia, Rheumatoid Arthritis Pyscho-Social History: Anxiety, Depression, Panic Disorder Comment: STILLS disease. mitral valve prolapse, with arrythmia. migraines. 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, epilepsy - Female History Hx Last Menstrual Period: Jan 10 2024 - Past Surgical History Past Surgical History: Yes (previous csection at 36 wks ge) Musculskeletal Surgical Hx: Other Female Surgical History: Section Other Surgical History: csection, tonsillectomy - Social History Smoking Status: Never smoker Exposure to second hand smoke: No Alcohol: None Drug Use: none - Social Determinants of Health Will the patient participate in the screening: Unable to obtain Do you worry about a steady place to live?: No In the past 12 months,have you had to go without utilities?: No Have you or anyone in your house had to go without enough: No Transportation Issues: No Has anyone in your support network made you feel unsafe?: No Comment: [facility] insurance - Physical Exam Vital Signs: Vital Signs - 24 hr Temp Pulse Resp BP BP Pulse Ox 08/25/24 08:00 101 H 16 132/101 99 08/25/24 06:30 103 H 121/85 08/25/24 06:15 115/83 08/25/24 06:00 94 H 117/80 08/25/24 05:45 104 H 106/73 08/25/24 05:30 98 H 109/67 08/25/24 05:15 106 H 106/59 08/25/24 05:00 90 106/59 08/25/24 04:45 89 93/53 08/25/24 04:30 85 97/58 08/25/24 04:21 90 103/61 08/25/24 04:00 90 91/55 08/25/24 03:50 88 93/55 08/25/24 03:30 115 H 126/90 08/25/24 03:19 117 H 124/90 08/25/24 03:00 114 H 119/83 08/25/24 02:51 109 H 118/76 08/25/24 02:30 101 H 126/80 08/25/24 02:20 105 H 121/81 08/25/24 02:00 94 H 125/85 08/25/24 01:45 103 H 145/98 08/25/24 01:30 108 H 124/81 94 L 08/25/24 01:19 111 H 121/78 95 08/25/24 01:10 103 H 125/78 95 08/25/24 00:50 126/90 103 H 08/25/24 00:30 147/102 08/25/24 00:22 135/94 08/25/24 00:00 96 H 147/95 96 08/24/24 23:29 97 H 121/68 99 08/24/24 23:15 96 H 124/67 94 L 08/24/24 23:07 94 H 132/69 98 08/24/24 23:00 96 H 163/92 97 08/24/24 22:56 132/69 08/24/24 22:45 105 H 159/110 98 08/24/24 22:30 103 H 147/104 98 08/24/24 22:15 97 H 153/105 99 08/24/24 22:00 101 H 161/105 98 08/24/24 21:45 97 H 150/95 99 08/24/24 21:30 97 H 141/97 100 08/24/24 21:15 91 H 128/85 98 08/24/24 21:00 90 129/85 99 08/24/24 20:32 87 140/89 98 08/24/24 20:15 96 H 143/98 99 08/24/24 20:00 85 144/98 97 08/24/24 19:45 85 18 153/97 08/24/24 19:38 154/94 08/24/24 19:30 93 H 22 154/94 100 08/24/24 19:15 86 20 145/105 98 08/24/24 19:00 153/103 08/24/24 18:45 157/106 08/24/24 18:30 157/106 08/24/24 18:15 150/93 08/24/24 18:00 170/107 08/24/24 17:45 139/84 08/24/24 17:30 162/111 08/24/24 17:15 91 H 151/102 100 08/24/24 17:04 155/103 98 08/24/24 17:00 83 155/103 98 08/24/24 16:45 81 159/100 98 08/24/24 16:30 87 155/106 100 08/24/24 16:15 88 151/101 98 08/24/24 16:00 97 H 162/101 100 08/24/24 15:45 87 145/97 100 08/24/24 15:30 88 14 142/96 99 08/24/24 15:15 151/94 08/24/24 15:00 97.6 F 104 H 14 145/96 145/96 97 Results - Labs Lab/Micro Results: Lab Results-Last 24 Hours 08/24/24 08/24/24 08/24/24 Range/Units 15:41 15:41 15:41 WBC (3.98-10.04) x10^3/uL RBC (3.93-5.22) x10^6/uL Hgb (11.2-15.7) g/dL Hct (34.1-44.9) % MCV (79.4-94.8) fL MCH (25.6-32.2) pg MCHC (32.2-35.5) g/dL RDW (11.7-14.4) % Plt Count (182-369) x10^3/uL MPV (9.4-12.3) fL Gran % (34.0-71.1) % Immature Gran % (Auto) (0.001-0.429) % Nucleat RBC Rel Count (0.00-0.2) % Eos # (Auto) (0.04-0.36) x10^3/uL Immature Gran # (Auto) (0.001-0.031) x10^3u/L Absolute Lymphs (auto) (1.18-3.74) x10^3/uL Absolute Monos (auto) (0.24-0.86) x10^3/uL Absolute Nucleated RBC (0.00-0.012) x10^3u/L Lymphocytes % (19.3-51.7) % Monocytes % (4.7-12.5) % Eosinophils % (0.7-5.8) % Basophils % (0.1-1.2) % Absolute Granulocytes (1.56-6.13) x10^3/uL Basophils # (0.01-0.08) x10^3/uL Sodium (135-145) mmol/L Potassium (3.5-5.1) mmol/L Chloride (98-107) mmol/L Carbon Dioxide (22-30) mmol/L Anion Gap (5-15) MEQ/L BUN (7-17) mg/dL Creatinine (0.52-1.04) mg/dL Estimated GFR ML/MIN Glucose (74-106) mg/dL Uric Acid (2.6-6.0) mg/dL Calcium (8.4-10.2) mg/dL Total Bilirubin (0.2-1.3) mg/dL AST (14-36) U/L ALT (0-35) U/L Alkaline Phosphatase (38-126) U/L Serum Total Protein (6.3-8.2) g/dL Albumin (3.5-5.0) g/dL Triglycerides (30-150) mg/dL Cholesterol (50-200) mg/dL LDL Cholesterol (30-100) mg/dL HDL Cholesterol (40-60) mg/dL Heart Disease Risk Ratio Urine Color Yellow (Yellow) Urine Appearance Clear (Clear) Urine pH 8.5 A (4.6-8.0) Ur Specific [place] 1.015 (1.005-1.030) Urine Protein Trace A (Negative) Urine Glucose (UA) Negative (Negative) mg/dL Urine Ketones 15 A (Negative) Urine Blood Negative (Negative) Urine Nitrite Negative (Negative) Urine Bilirubin Negative (Negative) Urine Urobilinogen 0.2 (0.2) mg/dL Ur Leukocyte Esterase Negative (Negative) U Hyaline Cast (Auto) NONE SEEN (0-2) /LPF Urine Microscopic RBC 0-2 (0-5) /HPF Urine Microscopic WBC 3-5 (0-5) /HPF Ur Epithelial Cells Few (None Seen) /HPF Urine Bacteria None Seen (None Seen) /HPF Urine Culture Reflexed NO (NO) Ur Random Creatinine 83.2 mg/dl U Random Total Protein 8.0 (<12) mg/dl U [place] Prot/Creat Ratio 0.10 (0.0-0.15) mg/mg Urine Opiates Level NEGATIVE (NEGATIVE) Ur Methadone NEGATIVE (NEGATIVE) Urine Barbiturates NEGATIVE (NEGATIVE) Ur Phencyclidine (PCP) NEGATIVE (NEGATIVE) Urine Amphetamine NEGATIVE (NEGATIVE) U Benzodiazepine Level NEGATIVE (NEGATIVE) Urine Cocaine NEGATIVE (NEGATIVE) Urine Marijuana (THC) POSITIVE A (NEGATIVE) 08/24/24 08/24/24 08/24/24 Range/Units 15:56 15:56 15:56 WBC 13.1 H (3.98-10.04) x10^3/uL RBC 3.98 (3.93-5.22) x10^6/uL Hgb 12.1 (11.2-15.7) g/dL Hct 36.2 (34.1-44.9) % MCV 91.0 (79.4-94.8) fL MCH 30.4 (25.6-32.2) pg MCHC 33.4 (32.2-35.5) g/dL RDW 13.6 (11.7-14.4) % Plt Count 375 H (182-369) x10^3/uL MPV 9.1 L (9.4-12.3) fL Gran % 78.3 H (34.0-71.1) % Immature Gran % (Auto) 0.6 H (0.001-0.429) % Nucleat RBC Rel Count 0.0 (0.00-0.2) % Eos # (Auto) 0.04 (0.04-0.36) x10^3/uL Immature Gran # (Auto) 0.08 H (0.001-0.031) x10^3u/L Absolute Lymphs (auto) 2.14 (1.18-3.74) x10^3/uL Absolute Monos (auto) 0.55 (0.24-0.86) x10^3/uL Absolute Nucleated RBC 0.00 (0.00-0.012) x10^3u/L Lymphocytes % 16.4 L (19.3-51.7) % Monocytes % 4.2 L (4.7-12.5) % Eosinophils % 0.3 L (0.7-5.8) % Basophils % 0.2 (0.1-1.2) % Absolute Granulocytes 10.25 H (1.56-6.13) x10^3/uL Basophils # 0.02 (0.01-0.08) x10^3/uL Sodium 134 L (135-145) mmol/L Potassium 3.8 (3.5-5.1) mmol/L Chloride 106 (98-107) mmol/L Carbon Dioxide 24 (22-30) mmol/L Anion Gap 7.7 (5-15) MEQ/L BUN 7 (7-17) mg/dL Creatinine 0.61 (0.52-1.04) mg/dL Estimated GFR 121.7 ML/MIN Glucose 95 (74-106) mg/dL Uric Acid 4.7 (2.6-6.0) mg/dL Calcium 9.0 (8.4-10.2) mg/dL Total Bilirubin 0.30 (0.2-1.3) mg/dL AST 24 (14-36) U/L ALT 20 (0-35) U/L Alkaline Phosphatase 145 H (38-126) U/L Serum Total Protein 6.7 (6.3-8.2) g/dL Albumin 3.7 (3.5-5.0) g/dL Triglycerides 305 H (30-150) mg/dL Cholesterol 232 H (50-200) mg/dL LDL Cholesterol 117 H (30-100) mg/dL HDL Cholesterol 63 H (40-60) mg/dL Heart Disease Risk Ratio 4.0 Urine Color (Yellow) Urine Appearance (Clear) Urine pH (4.6-8.0) Ur Specific [place] (1.005-1.030) Urine Protein (Negative) Urine Glucose (UA) (Negative) mg/dL Urine Ketones (Negative) Urine Blood (Negative) Urine Nitrite (Negative) Urine Bilirubin (Negative) Urine Urobilinogen (0.2) mg/dL Ur Leukocyte Esterase (Negative) U Hyaline Cast (Auto) (0-2) /LPF Urine Microscopic RBC (0-5) /HPF Urine Microscopic WBC (0-5) /HPF Ur Epithelial Cells (None Seen) /HPF Urine Bacteria (None Seen) /HPF Urine Culture Reflexed (NO) Ur Random Creatinine mg/dl U Random Total Protein (<12) mg/dl U [place] Prot/Creat Ratio (0.0-0.15) mg/mg Urine Opiates Level (NEGATIVE) Ur Methadone (NEGATIVE) Urine Barbiturates (NEGATIVE) Ur Phencyclidine (PCP) (NEGATIVE) Urine Amphetamine (NEGATIVE) U Benzodiazepine Level (NEGATIVE) Urine Cocaine (NEGATIVE) Urine Marijuana (THC) (NEGATIVE) Assessment/Plan (1) Uncontrolled hypertension Current Visit: Yes Status: Acute Code(s): I10 - ESSENTIAL (PRIMARY) HYPERTENSION (2) Chronic hypertension affecting Current Visit: Yes Status: Acute Code(s): O10.919 - UNSP PRE-EXISTING HTN COMP , UNSP TRIMESTER (3) Seizure disorder Current Visit: Yes Status: Acute Code(s): G40.909 - EPILEPSY, UNSP, NOT INTRACTABLE, WITHOUT STATUS EPILEPTICUS (4) Anxiety disorder Current Visit: Yes Status: Acute Code(s): F41.9 - ANXIETY DISORDER, UNSPECIFIED (5) Anxiety disorder affecting , antepartum Current Visit: Yes Status: Acute Code(s): O99.340 - OTH MENTAL DISORDERS COMPLICATING , UNSP TRIMESTER; F41.9 - ANXIETY DISORDER, UNSPECIFIED
--- NOTE | 2024-08-25 10:47 | PCM.NOTE ---
Date and Time: 08/25/24 1042 Subjective Assessment: pt admitted at 32 2/7 wks gestation for uncontrolled htn having ruled out preeclampsia. pt was supposed to have been taking her labetolol 200mg bid however stopped taking her medication and was noted having elevated bp yesterday upon admission. pt with also hx of anxiety disorder and seizure disorder cur rently on keppra 500mg bid however not taking on regular basis and supposed to have been taking her effexor for anxiety however states not helping her. currently placed on paxil 20mg starting today and was advised to continue taking her keppra bid along with taking her labetolol and paxil. denies complaints at this time. labs; normal a/p iup 32 2/7wks gestation with uncontrolled htn; preeclampsia ruled out will continue to adjust labetolol dose accordingly today until bp stable will consider discharge today if bp controlled on labetolol Objective Data Vital Signs: Vital Signs - 24 hr Temp Pulse Resp BP BP Pulse Ox 08/25/24 08:00 101 H 16 132/101 99 08/25/24 06:30 103 H 121/85 08/25/24 06:15 115/83 08/25/24 06:00 94 H 117/80 08/25/24 05:45 104 H 106/73 08/25/24 05:30 98 H 109/67 08/25/24 05:15 106 H 106/59 08/25/24 05:00 90 106/59 08/25/24 04:45 89 93/53 08/25/24 04:30 85 97/58 08/25/24 04:21 90 103/61 08/25/24 04:00 90 91/55 08/25/24 03:50 88 93/55 08/25/24 03:30 115 H 126/90 08/25/24 03:19 117 H 124/90 08/25/24 03:00 114 H 119/83 08/25/24 02:51 109 H 118/76 08/25/24 02:30 101 H 126/80 08/25/24 02:20 105 H 121/81 08/25/24 02:00 94 H 125/85 08/25/24 01:45 103 H 145/98 08/25/24 01:30 108 H 124/81 94 L 08/25/24 01:19 111 H 121/78 95 08/25/24 01:10 103 H 125/78 95 08/25/24 00:50 126/90 103 H 08/25/24 00:30 147/102 08/25/24 00:22 135/94 08/25/24 00:00 96 H 147/95 96 08/24/24 23:29 97 H 121/68 99 08/24/24 23:15 96 H 124/67 94 L 08/24/24 23:07 94 H 132/69 98 08/24/24 23:00 96 H 163/92 97 08/24/24 22:56 132/69 08/24/24 22:45 105 H 159/110 98 08/24/24 22:30 103 H 147/104 98 08/24/24 22:15 97 H 153/105 99 08/24/24 22:00 101 H 161/105 98 08/24/24 21:45 97 H 150/95 99 08/24/24 21:30 97 H 141/97 100 08/24/24 21:15 91 H 128/85 98 08/24/24 21:00 90 129/85 99 08/24/24 20:32 87 140/89 98 08/24/24 20:15 96 H 143/98 99 08/24/24 20:00 85 144/98 97 08/24/24 19:45 85 18 153/97 08/24/24 19:38 154/94 08/24/24 19:30 93 H 22 154/94 100 08/24/24 19:15 86 20 145/105 98 08/24/24 19:00 153/103 08/24/24 18:45 157/106 08/24/24 18:30 157/106 08/24/24 18:15 150/93 08/24/24 18:00 170/107 08/24/24 17:45 139/84 08/24/24 17:30 162/111 08/24/24 17:15 91 H 151/102 100 08/24/24 17:04 155/103 98 08/24/24 17:00 83 155/103 98 08/24/24 16:45 81 159/100 98 08/24/24 16:30 87 155/106 100 08/24/24 16:15 88 151/101 98 08/24/24 16:00 97 H 162/101 100 08/24/24 15:45 87 145/97 100 08/24/24 15:30 88 14 142/96 99 08/24/24 15:15 151/94 08/24/24 15:00 97.6 F 104 H 14 145/96 145/96 97 Pain Assessment - Last Documented Pain Intensity 4 Pain Scale Used 0-10 Pain Scale Lab Results: Lab Results-Last 24 Hours 08/24/24 08/24/24 08/24/24 Range/Units 15:41 15:41 15:41 WBC (3.98-10.04) x10^3/uL RBC (3.93-5.22) x10^6/uL Hgb (11.2-15.7) g/dL Hct (34.1-44.9) % MCV (79.4-94.8) fL MCH (25.6-32.2) pg MCHC (32.2-35.5) g/dL RDW (11.7-14.4) % Plt Count (182-369) x10^3/uL MPV (9.4-12.3) fL Gran % (34.0-71.1) % Immature Gran % (Auto) (0.001-0.429) % Nucleat RBC Rel Count (0.00-0.2) % Eos # (Auto) (0.04-0.36) x10^3/uL Immature Gran # (Auto) (0.001-0.031) x10^3u/L Absolute Lymphs (auto) (1.18-3.74) x10^3/uL Absolute Monos (auto) (0.24-0.86) x10^3/uL Absolute Nucleated RBC (0.00-0.012) x10^3u/L Lymphocytes % (19.3-51.7) % Monocytes % (4.7-12.5) % Eosinophils % (0.7-5.8) % Basophils % (0.1-1.2) % Absolute Granulocytes (1.56-6.13) x10^3/uL Basophils # (0.01-0.08) x10^3/uL Sodium (135-145) mmol/L Potassium (3.5-5.1) mmol/L Chloride (98-107) mmol/L Carbon Dioxide (22-30) mmol/L Anion Gap (5-15) MEQ/L BUN (7-17) mg/dL Creatinine (0.52-1.04) mg/dL Estimated GFR ML/MIN Glucose (74-106) mg/dL Uric Acid (2.6-6.0) mg/dL Calcium (8.4-10.2) mg/dL Total Bilirubin (0.2-1.3) mg/dL AST (14-36) U/L ALT (0-35) U/L Alkaline Phosphatase (38-126) U/L Serum Total Protein (6.3-8.2) g/dL Albumin (3.5-5.0) g/dL Triglycerides (30-150) mg/dL Cholesterol (50-200) mg/dL LDL Cholesterol (30-100) mg/dL HDL Cholesterol (40-60) mg/dL Heart Disease Risk Ratio Urine Color Yellow (Yellow) Urine Appearance Clear (Clear) Urine pH 8.5 A (4.6-8.0) Ur Specific [place] 1.015 (1.005-1.030) Urine Protein Trace A (Negative) Urine Glucose (UA) Negative (Negative) mg/dL Urine Ketones 15 A (Negative) Urine Blood Negative (Negative) Urine Nitrite Negative (Negative) Urine Bilirubin Negative (Negative) Urine Urobilinogen 0.2 (0.2) mg/dL Ur Leukocyte Esterase Negative (Negative) U Hyaline Cast (Auto) NONE SEEN (0-2) /LPF Urine Microscopic RBC 0-2 (0-5) /HPF Urine Microscopic WBC 3-5 (0-5) /HPF Ur Epithelial Cells Few (None Seen) /HPF Urine Bacteria None Seen (None Seen) /HPF Urine Culture Reflexed NO (NO) Ur Random Creatinine 83.2 mg/dl U Random Total Protein 8.0 (<12) mg/dl U [place] Prot/Creat Ratio 0.10 (0.0-0.15) mg/mg Urine Opiates Level NEGATIVE (NEGATIVE) Ur Methadone NEGATIVE (NEGATIVE) Urine Barbiturates NEGATIVE (NEGATIVE) Ur Phencyclidine (PCP) NEGATIVE (NEGATIVE) Urine Amphetamine NEGATIVE (NEGATIVE) U Benzodiazepine Level NEGATIVE (NEGATIVE) Urine Cocaine NEGATIVE (NEGATIVE) Urine Marijuana (THC) POSITIVE A (NEGATIVE) 08/24/24 08/24/2408/24/24 Range/Units 15:56 15:56 15:56 WBC 13.1 H (3.98-10.04) x10^3/uL RBC 3.98 (3.93-5.22) x10^6/uL Hgb 12.1 (11.2-15.7) g/dL Hct 36.2 (34.1-44.9) % MCV 91.0 (79.4-94.8) fL MCH 30.4 (25.6-32.2) pg MCHC 33.4 (32.2-35.5) g/dL RDW 13.6 (11.7-14.4) % Plt Count 375 H (182-369) x10^3/uL MPV 9.1 L (9.4-12.3) fL Gran % 78.3 H (34.0-71.1) % Immature Gran % (Auto) 0.6 H (0.001-0.429) % Nucleat RBC Rel Count 0.0 (0.00-0.2) % Eos # (Auto) 0.04 (0.04-0.36) x10^3/uL Immature Gran # (Auto) 0.08 H (0.001-0.031) x10^3u/L Absolute Lymphs (auto) 2.14 (1.18-3.74) x10^3/uL Absolute Monos (auto) 0.55 (0.24-0.86) x10^3/uL Absolute Nucleated RBC 0.00 (0.00-0.012) x10^3u/L Lymphocytes % 16.4 L (19.3-51.7) % Monocytes % 4.2 L (4.7-12.5) % Eosinophils % 0.3 L (0.7-5.8) % Basophils % 0.2 (0.1-1.2) % Absolute Granulocytes 10.25 H (1.56-6.13) x10^3/uL Basophils # 0.02 (0.01-0.08) x10^3/uL Sodium 134 L (135-145) mmol/L Potassium 3.8 (3.5-5.1) mmol/L Chloride 106 (98-107) mmol/L Carbon Dioxide 24 (22-30) mmol/L Anion Gap 7.7 (5-15) MEQ/L BUN 7 (7-17) mg/dL Creatinine 0.61 (0.52-1.04) mg/dL Estimated GFR 121.7 ML/MIN Glucose 95 (74-106) mg/dL Uric Acid 4.7 (2.6-6.0) mg/dL Calcium 9.0 (8.4-10.2) mg/dL Total Bilirubin 0.30 (0.2-1.3) mg/dL AST 24 (14-36) U/L ALT 20 (0-35) U/L Alkaline Phosphatase 145 H (38-126) U/L Serum Total Protein 6.7 (6.3-8.2) g/dL Albumin 3.7 (3.5-5.0) g/dL Triglycerides 305 H (30-150) mg/dL Cholesterol 232 H (50-200) mg/dL LDL Cholesterol 117 H (30-100) mg/dL HDL Cholesterol 63 H (40-60) mg/dL Heart Disease Risk Ratio 4.0 Urine Color (Yellow) Urine Appearance (Clear) Urine pH (4.6-8.0) Ur Specific [place] (1.005-1.030) Urine Protein (Negative) Urine Glucose (UA) (Negative) mg/dL Urine Ketones (Negative) Urine Blood (Negative) Urine Nitrite (Negative) Urine Bilirubin (Negative) Urine Urobilinogen (0.2) mg/dL Ur Leukocyte Esterase (Negative) U Hyaline Cast (Auto) (0-2) /LPF Urine Microscopic RBC (0-5) /HPF Urine Microscopic WBC (0-5) /HPF Ur Epithelial Cells (None Seen) /HPF Urine Bacteria (None Seen) /HPF Urine Culture Reflexed (NO) Ur Random Creatinine mg/dl U Random Total Protein (<12) mg/dl U [place] Prot/Creat Ratio (0.0-0.15) mg/mg Urine Opiates Level (NEGATIVE) Ur Methadone (NEGATIVE) Urine Barbiturates (NEGATIVE) Ur Phencyclidine (PCP) (NEGATIVE) Urine Amphetamine (NEGATIVE) U Benzodiazepine Level (NEGATIVE) Urine Cocaine (NEGATIVE) Urine Marijuana (THC) (NEGATIVE) Assessment/Plan (1) Uncontrolled hypertension Current Visit: Yes Status: Acute Code(s): I10 - ESSENTIAL (PRIMARY) HYPERTENSION (2) Chronic hypertension affecting Current Visit: Yes Status: Acute Code(s): O10.919 - UNSP PRE-EXISTING HTN COMP , UNSP TRIMESTER (3) Seizure disorder Current Visit: Yes Status: Acute Code(s): G40.909 - EPILEPSY, UNSP, NOT INTRACTABLE, WITHOUT STATUS EPILEPTICUS (4) Anxiety disorder Current Visit: Yes Status: Acute Code(s): F41.9 - ANXIETY DISORDER, UNSPECIFIED (5) Anxiety disorder affecting , antepartum Current Visit: Yes Status: Acute Code(s): O99.340 - OTH MENTAL DISORDERS COMPLICATING , UNSP TRIMESTER; F41.9 - ANXIETY DISORDER, UNSPECIFIED
[2024-08-25 12:09] VITALS: BP 108/74; PULSE 102; RESP 18; TEMP 97.4; O2SAT 98
[2024-08-25] MEDS: ECOTRIN 81 MG PO SCH (12:20)
[2024-08-25] MEDS: BENADRYL 25 MG CAPSULE PO ONE (12:20)
[2024-08-25] MEDS ORDERED: Effexor XR 75 MG PO SCH (22:00)
== END 2024-08-25 13:10 | disposition home or self-care (01) ==
LOC: OB 14:46
PROVIDERS: ADMIT Obstetrics & Gynecology; ATTEND Obstetrics & Gynecology
DX: Z34.83 Encounter for supervision of other normal pregnancy, third trimester (principal); Z3A.33 33 weeks gestation of pregnancy
CPT/HCPCS: 36415; 80053; 80061; 80307; 81001; 82570; 83721; 84156; 84550; 85025; G0378; G0379; A9270-GY

== ENCOUNTER 2024-09-23 13:44 | Inpatient (IN) | payer OTHER ==
--- NOTE | 2024-09-23 14:29 | XRAY ---
Indication: Routine care. growth. 2-dimensional OB ultrasound performed. Comparison: February 28, 2024 Again single intrauterine currently in cephalic presentation. heart rate 130 BPM. Fundal placenta without abnormal retroplacental fluid. BPD measures 8.66 cm corresponding to 35 weeks 0 days. HC measures 33.61 cm corresponding to 38 weeks 3 days. AC measures 31.47 cm corresponding to 35 weeks 3 days. FL measures 6.93 cm corresponding to 35 weeks 4 days. Estimate weight 6 lbs. 1 oz., +/-15 ounces. Approximately 5 percentile. NANCY is 11.2 cm. Impression: Again single viable intrauterine with mean gestational age 36 weeks 1 day. Normal progression of . Mean gestational age is concordant with first sonogram February 21, 2024.
[2024-09-23] MEDS: TYLENOL EXTRA STRENGTH 500 MG PO STA (15:50)
[2024-09-23] MEDS: Trandate 100 MG PO ONE (15:50)
[2024-09-23 16:25] LABS: Absolute Neutrophil Ct (ANC) 7.21 x10^3/uL (1.56-6.13); BASOPHIL % 0.2 % (0.1-1.2); Basophil (Absolute #) 0.02 x10^3/uL (0.01-0.08); Eosinophil % 0.4 % (0.7-5.8); Eosinophil (Absolute #) 0.04 x10^3/uL (0.04-0.36); Hematocrit 34.4 % (34.1-44.9); Hemoglobin 11.2 g/dL (11.2-15.7); IMMATURE GRAN # 0.05 x10^3u/L (0.001-0.031); IMMATURE GRAN % 0.5 % (0.001-0.429); Lymphocyte (Absolute #) 2.01 x10^3/uL (1.18-3.74); Lymphocytes % 20.2 % (19.3-51.7); Mean Cell Volume 91.5 fL (79.4-94.8); Mean Corpuscular Hemoglobin 29.8 pg (25.6-32.2); Mean Corpuscular Hgb Concent. 32.6 g/dL (32.2-35.5); Mean Platelet Volume 9.9 fL (9.4-12.3); Monocyte (Absolute #) 0.61 x10^3/uL (0.24-0.86); Monocytes % 6.1 % (4.7-12.5); NUCLEATED RBC # 0.02 x10^3u/L (0.00-0.012); NUCLEATED RBC % 0.2 % (0.00-0.2); Neutrophil % 72.6 % (34.0-71.1); Platelet Count 265 x10^3/uL (182-369); Red Blood Count 3.76 x10^6/uL (3.93-5.22); Red Cell Distribution Width 13.7 % (11.7-14.4); White Blood Count 9.9 x10^3/uL (3.98-10.04)
[2024-09-23 16:41] LABS: ALBUMIN 3.4 g/dL (3.5-5.0); ANION GAP 7.5 MEQ/L (5-15); BILIRUBIN,TOTAL 0.4 mg/dL (0.2-1.3); Creatinine 1 0.51 mg/dL (0.52-1.04); EST GLOMERULAR FILTRATION RATE 127.1 ML/MIN; Potassium 4.1 mmol/L (3.5-5.1); Total Protein 6.3 g/dL (6.3-8.2)
[2024-09-23 17:12] LABS: Appearance Clear (Clear); Bilirubin Negative (Negative); Blood Negative (Negative); Glucose, Urine Negative (Negative); Ketones Negative (Negative); Leukocyte Esterase Negative (Negative); Nitrite Negative (Negative); Ph 7.5 (4.6-8.0); Protein,Urine Dip Negative (Negative); Urobilinogen 0.2 mg/dL (0.2)
[2024-09-23 17:17] LABS: Bacteria None Seen /HPF (None Seen); Epithelial Cells Rare /HPF (None Seen); Hyaline Casts NONE SEEN /LPF (0-2); RBC 0-2 /HPF (0-5); WBC 0-2 /HPF (0-5)
[2024-09-23 17:34] LABS: Creatinine, Urine Random 31.8 mg/dl; Protein Creatinine Ratio, Ran. 0.47 mg/mg (0.0-0.15)
[2024-09-23] MEDS: Celestone Soluspan 6MG/ML IM SCH (19:24)
[2024-09-23] MEDS ORDERED: TRANDATE 100MG/20 ML MDV IV PRN (21:30)
[2024-09-23] MEDS ORDERED: APRESOLINE 20 MG/ML INJ IV PRN (21:30)
[2024-09-23] MEDS ORDERED: TRANDATE 100 MG/20 ML MDV FOR DRIP IV ONE ×2 (21:51→23:16)
[2024-09-23] MEDS: TRANDATE 100MG/20 ML MDV IV ONE (21:54)
[2024-09-23 22:03] LABS: INR 0.84 (0.8-3.0); PROTIME 9.3 SECONDS (9.4-12.5); PTT 24.4 SECONDS (25.1-36.5)
[2024-09-23] MEDS: TYLENOL EXTRA STRENGTH 500 MG PO PRN (22:04)
[2024-09-23] MEDS: Keppra 250 MG PO SCH (22:15)
[2024-09-23] MEDS: Paxil 20 MG PO SCH (22:16)
[2024-09-23] MEDS: Effexor XR 75 MG PO SCH (22:16)
[2024-09-23 22:28] LABS: ABO TYPING A; Antibody Screen NEGATIVE (NEGATIVE); RH TYPING POSITIVE
[2024-09-23] MEDS: TRANDATE 100MG/20 ML MDV IV PRN (23:17)
[2024-09-24] MEDS ORDERED: TRANDATE 100 MG/20 ML MDV FOR DRIP IV ONE (00:34)
[2024-09-24] MEDS: Trandate 100 MG PO SCH (00:54)
[2024-09-24] MEDS: Tums EX 750 MG PO PRN (03:09)
[2024-09-24] MEDS: BENADRYL 25 MG CAPSULE PO ONE (04:01)
[2024-09-24] MEDS: Lactated Ringers 1,000 ML IV SCH ×2 (05:37→07:25)
[2024-09-24] MEDS: Magnesium Sulfate 40 Gm/1000 Ml H2O Premix*** 1,000 ML IV SCH (05:37)
[2024-09-24] MEDS ORDERED: Sodium Chloride 0.9% 100 ML ONE (06:26)
[2024-09-24] MEDS ORDERED: Phenergan 25 MG INJ ONE (06:26)
[2024-09-24] MEDS: Phenergan 25 MG INJ*** 25 MG in Sodium Chloride 0.9% 100 ML IV ONE (06:33)
[2024-09-24] MEDS: Reglan 10 MG/2 ML IV SCH (06:38)
[2024-09-24] MEDS: Pepcid 20 MG VIAL IV SCH (06:50)
[2024-09-24 06:54] LABS: Appearance Clear (Clear); Bacteria None Seen /HPF (None Seen); Bilirubin Negative (Negative); Blood Negative (Negative); Epithelial Cells None Seen /HPF (None Seen); Glucose, Urine Negative (Negative); Hyaline Casts NONE SEEN /LPF (0-2); Ketones Negative (Negative); Leukocyte Esterase Negative (Negative); Nitrite Negative (Negative); Ph 7.5 (4.6-8.0); Protein,Urine Dip Trace (Negative); RBC 0-2 /HPF (0-5); Specific Gravity 1.025 (1.005-1.030); Urobilinogen 0.2 mg/dL (0.2)
[2024-09-24] MEDS: CEFAZOLIN 2 GM/100 ML NaCl 2 GM/100 ML IVPB IV SCH ×2 (06:56→16:54)
[2024-09-24] MEDS ORDERED: Astramorph-Pf 5 MG/10 ML ONE (07:17)
[2024-09-24] MEDS ORDERED: PHENYLEPHRINE HCL ONE (07:17)
[2024-09-24] MEDS ORDERED: Pitocin 10 UNITS/ML ONE (07:17)
[2024-09-24] MEDS ORDERED: EXPAREL 133 MG/10 ML VIAL IJ ONE (07:18)
[2024-09-24] MEDS ORDERED: Marcaine Mpf 0.5% Vial 30 Ml ONE (07:18)
[2024-09-24] MEDS ORDERED: OFIRMEV 100 ML IV ONE (07:27)
[2024-09-24] MEDS ORDERED: SOD CITRATE-CITRIC ACID SOLN PO SCH (07:30)
[2024-09-24] MEDS ORDERED: Lactated Ringers 1,000 ML IV ONE (07:31)
[2024-09-24] MEDS ORDERED: Versed 2 MG/2 ML Injection ONE ×2 (08:06→08:23)
[2024-09-24] MEDS ORDERED: DEXMEDETOMIDINE 80 MCG/20ML-NS IV ONE (08:09)
[2024-09-24] MEDS ORDERED: SUBLIMAZE 100 MCG/2 ML ONE (08:27)
[2024-09-24 09:42] LABS: CROSS MATCH (PRBC) COMPATIBLE (COMPATIBLE)
[2024-09-24 09:44] LABS: CROSS MATCH (PRBC) COMPATIBLE (COMPATIBLE)
[2024-09-24] MEDS ORDERED: HOLD NARCOTIC ANALGESICS AND SEDATIVES X24 HR MC PRN (10:00)
[2024-09-24] MEDS ORDERED: Dulcolax 10 MG SUPP PR PRN (11:03)
[2024-09-24] MEDS ORDERED: LANSINOH 40 GM TOP PRN (11:03)
[2024-09-24] MEDS ORDERED: Mylicon 80MG PO PRN (11:03)
[2024-09-24] MEDS ORDERED: Narcan 0.4 MG/ML IV PRN (11:39)
[2024-09-24] MEDS ORDERED: MORPHINE SULFATE 2 MG INJ IV PRN (11:39)
[2024-09-24] MEDS ORDERED: BENADRYL 50 MG/ML IV PRN (11:39)
[2024-09-24] MEDS ORDERED: Nubain 10 MG/ML IV PRN (11:39)
[2024-09-24] MEDS: Dextrose 5%-Lr IV Solution 1000 ML 1,000 ML IV SCH (12:01)
[2024-09-24] MEDS: Effexor XR 75 MG PO SCH ×2 (12:02→21:49)
[2024-09-24] MEDS: KEPPRA PO SCH (12:23)
[2024-09-24] MEDS: CLARITIN 10 MG PO PRN (13:01)
[2024-09-24] MEDS: Docusate Sodium 100 MG PO SCH (21:49)
[2024-09-25 03:06] LABS: Absolute Neutrophil Ct (ANC) 13.27 x10^3/uL (1.56-6.13); BASOPHIL % 0.1 % (0.1-1.2); Basophil (Absolute #) 0.02 x10^3/uL (0.01-0.08); Eosinophil % 0.1 % (0.7-5.8); Eosinophil (Absolute #) 0.02 x10^3/uL (0.04-0.36); Hematocrit 30.1 % (34.1-44.9); Hemoglobin 9.7 g/dL (11.2-15.7); IMMATURE GRAN # 0.09 x10^3u/L (0.001-0.031); IMMATURE GRAN % 0.5 % (0.001-0.429); Lymphocyte (Absolute #) 1.83 x10^3/uL (1.18-3.74); Lymphocytes % 11.2 % (19.3-51.7); Mean Cell Volume 92.9 fL (79.4-94.8); Mean Corpuscular Hemoglobin 29.9 pg (25.6-32.2); Mean Corpuscular Hgb Concent. 32.2 g/dL (32.2-35.5); Mean Platelet Volume 9.8 fL (9.4-12.3); Monocyte (Absolute #) 1.18 x10^3/uL (0.24-0.86); Monocytes % 7.2 % (4.7-12.5); Neutrophil % 80.9 % (34.0-71.1); Platelet Count 247 x10^3/uL (182-369); Red Blood Count 3.24 x10^6/uL (3.93-5.22); Red Cell Distribution Width 13.8 % (11.7-14.4); White Blood Count 16.4 x10^3/uL (3.98-10.04)
[2024-09-25] MEDS: PERCOCET TABLET 5/325MG PO PRN (04:12)
--- NOTE | 2024-09-25 07:37 | PCM.HP ---
History of Present Illness - Chief Complaint Chief Complaint: POST OP C/S History of Present Illness: is a 34 year old female. pt is a 34 yo 36 4/7 wks gestation with hx of previous csection at 36 wks for severe preeclampsia admitted on sep 23 for elevated blood pressure and noncompliance with diagnosed preeclampsia on the day of admission on labetolol 200mg tid and was noted having elevated bp in labor delivery with growth scan done on sep 23 showing growth at 5 percentile growth. discussed management with dr lopez who suggested steroids be given 2 doses 24 hrs apart and delivery to pursue on sep 25 unless severe symptoms presents itself. pt also known to be noncompliant with office visits and visits to [facility] office. pt was noted having elevated prot/cr ratio at 0.47 with elevated liver enzymes. pt was therefore admitted with plans to deliver on sep 25. Medications & Allergies Home Medications: Home Medication List Venlafaxine HCl [Venlafaxine HCl ER] 150 mg PO DAILY 30 Days #30 cap 04/03/22 [Rx Confirmed 09/23/24] Venlafaxine HCl 75 mg PO HS 02/23/24 [History Confirmed 09/23/24] Pnv No.95/Ferrous Fum/Folic AC [ Vitamins Tablet] 1 tab PO DAILY 03/04/24 [History Confirmed 09/23/24] Levetiracetam [Keppra] 500 mg PO BID 06/26/24 [History Confirmed 09/23/24] Paroxetine HCl 20 mg [Paxil 20 MG] 20 mg PO EVENING MEAL 08/25/24 [History Confirmed 09/23/24] Labetalol HCl 100 mg [Trandate 100 MG] 200 mg PO TID 09/23/24 [History Confirmed 09/23/24] Allergies/Adverse Reactions: Allergies Allergy/AdvReac Type Severity Reaction Status Date / Time naproxen Allergy Severe Difficulty Verified 09/24/24 02:21 Breathing hydromorphone HCl Allergy Mild Verified 09/11/24 12:37 [From Dilaudid] propoxyphene napsylate Allergy Mild Verified 09/11/24 12:37 [From Darvocet-N 100] sumatriptan [From Imitrex] Allergy Mild Verified 09/11/24 12:37 sumatriptan succinate Allergy Mild Verified 09/11/24 12:37 [From Imitrex] topiramate [From Topamax] Allergy Mild Verified 09/11/24 12:37 pregabalin [From Lyrica] Allergy Verified 06/25/24 18:11 ondansetron HCl [From Zofran] AdvReac Mild SEVERE Verified 09/24/24 02:22 ANXIETY - Past Medical History Past Medical History: Yes Neurological History: Seizures, Other ENT History: Other Cardiac History: Other Respiratory History: No Pertinent History Endocrine Medical History: No Pertinent History Musculoskelatal History: Rheumatoid Arthritis GI Medical History: Irritable Bowel History: No Pertinent History Pyscho-Social History: Anxiety, Depression, Panic Disorder Reproductive Disorders: No Pertinent History Comment: STILLS disease. mitral valve prolapse, mitral regurgitation, with arrythmia. migraines. 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, epilepsy, - Female History Expected Date of Delivery: 10/18/24 - Past Surgical History Past Surgical History: Yes (previous csection at 36 wks ge) Cardiac History: No Pertinent History Respiratory Surgery: No Pertinent History GI Surgical History: No Pertinent History Genitourinary Surgical Hx: No Pertinent History Musculskeletal Surgical Hx: Other Female Surgical History: Section Other Surgical History: csection, tonsillectomy, R ankle surgery - Social History Smoking Status: Current every day smoker Exposure to second hand smoke: No Alcohol: None Drug Use: marijuana - Social Determinants of Health Will the patient participate in the screening: Yes Do you worry about a steady place to live?: No Do you have any problems with any of the following?: No known problems In the past 12 months,have you had to go without utilities?: No Have you or anyone in your house had to go without enough: No Transportation Issues: Yes Has anyone in your support network made you feel unsafe?: No Does the patient want assistance with any of the above?: Yes Comment: Pt states things are "tight financially" Pt would like assistance with utilities etc. - Physical Exam Vital Signs: Vital Signs - 24 hr Temp Pulse Resp BP BP Pulse Ox 09/25/24 06:00 94 H 119/79 09/25/24 05:00 87 120/77 09/25/24 04:00 98 H 120/79 09/25/24 03:00 89 128/80 09/25/24 02:00 97.6 F 94 H 16 134/83 134/83 96 09/25/24 01:00 91 H 104/68 09/25/24 00:00 94 H 113/75 09/24/24 23:00 96 H 114/75 09/24/24 22:00 100 H 151/84 09/24/24 21:00 97 H 148/73 09/24/24 20:00 104 H 17 119/70 119/70 98 09/24/24 19:00 98.2 F 89 120/75 98 09/24/24 18:37 98.2 F 95 H 14 121/65 100 09/24/24 17:00 85 119/79 100 09/24/24 15:00 93 H 127/74 98 09/24/24 14:00 86 130/87 96 09/24/24 13:00 98 F 88 140/89 98 09/24/24 12:00 98.1 F 86 137/87 98 09/24/24 11:15 98.1 F 83 125/87 99 09/24/24 10:50 98.3 F 75 131/89 98 09/24/24 10:35 98.6 F 76 124/85 98 09/24/24 10:20 98 F 75 125/81 98 09/24/24 10:05 98 F 89 123/76 98 09/24/24 10:00 98 09/24/24 09:50 98.2 F 83 16 122/74 98 Results - Labs Lab/Micro Results: Lab Results-Last 24 Hours 09/24/24 09/24/24 09/24/24 Range/Units 07:18 07:18 20:40 WBC (3.98-10.04) x10^3/uL RBC (3.93-5.22) x10^6/uL Hgb (11.2-15.7) g/dL Hct (34.1-44.9) % MCV (79.4-94.8) fL MCH (25.6-32.2) pg MCHC (32.2-35.5) g/dL RDW (11.7-14.4) % Plt Count (182-369) x10^3/uL MPV (9.4-12.3) fL Gran % (34.0-71.1) % Immature Gran % (Auto) (0.001-0.429) % Nucleat RBC Rel Count (0.00-0.2) % Eos # (Auto) (0.04-0.36) x10^3/uL Immature Gran # (Auto) (0.001-0.031) x10^3u/L Absolute Lymphs (auto) (1.18-3.74) x10^3/uL Absolute Monos (auto) (0.24-0.86) x10^3/uL Absolute Nucleated RBC (0.00-0.012) x10^3u/L Lymphocytes % (19.3-51.7) % Monocytes % (4.7-12.5) % Eosinophils % (0.7-5.8) % Basophils % (0.1-1.2) % Absolute Granulocytes (1.56-6.13) x10^3/uL Basophils # (0.01-0.08) x10^3/uL Magnesium 5.9 H* (1.6-2.3) mg/dL Crossmatch COMPATIBLE COMPATIBLE (COMPATIBLE) 09/25/24 09/25/24 Range/Units 03:05 03:05 WBC 16.4 H (3.98-10.04) x10^3/uL RBC 3.24 L (3.93-5.22) x10^6/uL Hgb 9.7 L (11.2-15.7) g/dL Hct 30.1 L (34.1-44.9) % MCV 92.9 (79.4-94.8) fL MCH 29.9 (25.6-32.2) pg MCHC 32.2 (32.2-35.5) g/dL RDW 13.8 (11.7-14.4) % Plt Count 247 (182-369) x10^3/uL MPV 9.8 (9.4-12.3) fL Gran % 80.9 H (34.0-71.1) % Immature Gran % (Auto) 0.5 H (0.001-0.429) % Nucleat RBC Rel Count 0.0 (0.00-0.2) % Eos # (Auto) 0.02 L (0.04-0.36) x10^3/uL Immature Gran # (Auto) 0.09 H (0.001-0.031) x10^3u/L Absolute Lymphs (auto) 1.83 (1.18-3.74) x10^3/uL Absolute Monos (auto) 1.18 H (0.24-0.86) x10^3/uL Absolute Nucleated RBC 0.00 (0.00-0.012) x10^3u/L Lymphocytes % 11.2 L (19.3-51.7) % Monocytes % 7.2 (4.7-12.5) % Eosinophils % 0.1 L (0.7-5.8) % Basophils % 0.1 (0.1-1.2) % Absolute Granulocytes 13.27 H (1.56-6.13) x10^3/uL Basophils # 0.02 (0.01-0.08) x10^3/uL Magnesium 6.5 H* (1.6-2.3) mg/dL Crossmatch (COMPATIBLE) Microbiology 09/24/24 06:45 Urine Culture - Final Catherized NO GROWTH - Radiology Impressions Radiology Exams & Impressions: Radiology Procedures Category Date Time Status OB FOLLOW UP PER FETUS [US] Routine Exams 09/23/24 13:51 Completed - Other Procedures and Tests Respiratory Therapy 09/24/24 11:39 Oxygen Nasal Cannula 3 lpm Assessment/Plan (1) Pre-eclampsia affecting with pre-existing hypertension, delivered, current hospitalization Current Visit: Yes Status: Acute Code(s): RNA4812 - (2) growth restriction Current Visit: Yes Status: Acute (3) Seizure disorder Current Visit: No Status: Acute Code(s): G40.909 - EPILEPSY, UNSP, NOT INTRACTABLE, WITHOUT STATUS EPILEPTICUS (4) Non-compliance Current Visit: Yes Status: Acute Code(s): Z91.199 - PT NONCOMPL WITH OTHER MED TRTMT AND REGIMEN D/T UNSP REASON (5) Previous delivery affecting Current Visit: Yes Status: Acute Code(s): O34.219 - MATERNAL CARE FOR UNSP TYPE SCAR FROM PREVIOUS DEL (6) delivery Current Visit: Yes Status: Acute Code(s): O60.10X0 - LABOR W DELIVERY, UNSP TRIMESTER, UNSP
--- NOTE | 2024-09-25 07:40 | PCM.NOTE ---
Date and Time: 09/25/24 0739 Subjective Assessment: sp csection pod 1 pt resting in bed and doing well able to ambulate and tolerate diet vss afebrile abd; soft incision c/d/intact uterus;firm lochia; mild hgb. 9 a/p sp csection pod 1 with preeclampsia will dc magnesium sulfate anticipate discharge tomorrow will continue labetolol 200mg tid Objective Data Vital Signs: Vital Signs - 24 hr Temp Pulse Resp BP BP Pulse Ox 09/25/24 06:00 94 H 119/79 09/25/24 05:00 87 120/77 09/25/24 04:00 98 H 120/79 09/25/24 03:00 89 128/80 09/25/24 02:00 97.6 F 94 H 16 134/83 134/83 96 09/25/24 01:00 91 H 104/68 09/25/24 00:00 94 H 113/75 09/24/24 23:00 96 H 114/75 09/24/24 22:00 100 H 151/84 09/24/24 21:00 97 H 148/73 09/24/24 20:00 104 H 17 119/70 119/70 98 09/24/24 19:00 98.2 F 89 120/75 98 09/24/24 18:37 98.2 F 95 H 14 121/65 100 09/24/24 17:00 85 119/79 100 09/24/24 15:00 93 H 127/74 98 09/24/24 14:00 86 130/87 96 09/24/24 13:00 98 F 88 140/89 98 09/24/24 12:00 98.1 F 86 137/87 98 09/24/24 11:15 98.1 F 83 125/87 99 09/24/24 10:50 98.3 F 75 131/89 98 09/24/24 10:35 98.6 F 76 124/85 98 09/24/24 10:20 98 F 75 125/81 98 09/24/24 10:05 98 F 89 123/76 98 09/24/24 10:00 98 09/24/24 09:50 98.2 F 83 16 122/74 98 Pain Assessment - Last Documented Pain Intensity [Anterior/ 5 Posterior] Pain Intensity 3 Pain Scale Used 0-10 Pain Scale Intake and Output: Intake & Output 01/21/25 01/22/25 01/23/25 01/24/25 11:59 11:59 11:59 11:59 Intake Total 300 2998 Output Total 2195 8160 Balance -1100 -3252 Weight 83.461 kg Lab Results: Lab Results-Last 24 Hours 09/24/24 09/24/24 09/24/24 Range/Units 07:18 07:18 20:40 WBC (3.98-10.04) x10^3/uL RBC (3.93-5.22) x10^6/uL Hgb (11.2-15.7) g/dL Hct (34.1-44.9) % MCV (79.4-94.8) fL MCH (25.6-32.2) pg MCHC (32.2-35.5) g/dL RDW (11.7-14.4) % Plt Count (182-369) x10^3/uL MPV (9.4-12.3) fL Gran % (34.0-71.1) % Immature Gran % (Auto) (0.001-0.429) % Nucleat RBC Rel Count (0.00-0.2) % Eos # (Auto) (0.04-0.36) x10^3/uL Immature Gran # (Auto) (0.001-0.031) x10^3u/L Absolute Lymphs (auto) (1.18-3.74) x10^3/uL Absolute Monos (auto) (0.24-0.86) x10^3/uL Absolute Nucleated RBC (0.00-0.012) x10^3u/L Lymphocytes % (19.3-51.7) % Monocytes % (4.7-12.5) % Eosinophils % (0.7-5.8) % Basophils % (0.1-1.2) % Absolute Granulocytes (1.56-6.13) x10^3/uL Basophils # (0.01-0.08) x10^3/uL Magnesium 5.9 H* (1.6-2.3) mg/dL Crossmatch COMPATIBLE COMPATIBLE (COMPATIBLE) 09/25/24 09/25/24 Range/Units 03:05 03:05 WBC 16.4 H (3.98-10.04) x10^3/uL RBC 3.24 L (3.93-5.22) x10^6/uL Hgb 9.7 L (11.2-15.7) g/dL Hct 30.1 L (34.1-44.9) % MCV 92.9 (79.4-94.8) fL MCH 29.9 (25.6-32.2) pg MCHC 32.2 (32.2-35.5) g/dL RDW 13.8 (11.7-14.4) % Plt Count 247 (182-369) x10^3/uL MPV 9.8 (9.4-12.3) fL Gran % 80.9 H (34.0-71.1) % Immature Gran % (Auto) 0.5 H (0.001-0.429) % Nucleat RBC Rel Count 0.0 (0.00-0.2) % Eos # (Auto) 0.02 L (0.04-0.36) x10^3/uL Immature Gran # (Auto) 0.09 H (0.001-0.031) x10^3u/L Absolute Lymphs (auto) 1.83 (1.18-3.74) x10^3/uL Absolute Monos (auto) 1.18 H (0.24-0.86) x10^3/uL Absolute Nucleated RBC 0.00 (0.00-0.012) x10^3u/L Lymphocytes % 11.2 L (19.3-51.7) % Monocytes % 7.2 (4.7-12.5) % Eosinophils % 0.1 L (0.7-5.8) % Basophils % 0.1 (0.1-1.2) % Absolute Granulocytes 13.27 H (1.56-6.13) x10^3/uL Basophils # 0.02 (0.01-0.08) x10^3/uL Magnesium 6.5 H* (1.6-2.3) mg/dL Crossmatch (COMPATIBLE) Radiology Exams: Radiology Procedures Category Date Time Status OB FOLLOW UP PER FETUS [US] Routine Exams 09/23/24 13:51 Completed Multi-Disciplinary Progress Notes: Multi-Disciplinary Progress Notes 09/24/24 13:10 Respiratory Note by Khushbu Castillo BABY DELIVERED BY . BABY CRYING UPON DELIVERY AND BROUGHT TO WARMER. BABY DRIED AND STIMULATED. SEE BABY NOTE Initialized on 09/24/24 13:10 - END OF NOTE Assessment/Plan (1) Pre-eclampsia affecting with pre-existing hypertension, delivered, current hospitalization Current Visit: Yes Status: Acute Code(s): [id number] - (2) growth restriction Current Visit: Yes Status: Acute (3) Seizure disorder Current Visit: No Status: Acute Code(s): G40.909 - EPILEPSY, UNSP, NOT INTRACTABLE, WITHOUT STATUS EPILEPTICUS (4) Non-compliance Current Visit: Yes Status: Acute Code(s): Z91.199 - PT NONCOMPL WITH OTHER MED TRTMT AND REGIMEN D/T UNSP REASON (5) Previous delivery affecting Current Visit: Yes Status: Acute Code(s): O34.219 - MATERNAL CARE FOR UNSP TYPE SCAR FROM PREVIOUS DEL (6) delivery Current Visit: Yes Status: Acute Code(s): O60.10X0 - LABOR W DELIVERY, UNSP TRIMESTER, UNSP
[2024-09-25 08:28] LABS: HBsAg Screen Negative (Negative)
[2024-09-25] MEDS: FERREX 150 PO SCH (09:04)
[2024-09-25] MEDS: MOTRIN 400 MG PO PRN (09:08)
[2024-09-25] MEDS ORDERED: Trandate 100 MG ONE (17:01)
[2024-09-25] MEDS: Trandate 100 MG PO ONE (17:02)
[2024-09-25] MEDS: NORCO 5/325 MG PO PRN (21:06)
[2024-09-25] MEDS: Trandate 100 MG PO SCH (22:00)
[2024-09-25] MEDS: Sodium Chloride 0.9% 10 ML FLUSH Syringe IJ SCH (23:03)
[2024-09-26 08:07] VITALS: PULSE 77; TEMP 97.8
--- NOTE | 2024-09-26 09:10 | PCM.NOTE ---
Date and Time: 09/26/2408 Subjective Assessment: pod 2 sp csection pt resting in bed and doing well able to ambulate and tolerate diet vss afebrile abd; soft incision c/d/intact uterus; firm lochia; mild a/p sp csection pod 2 with resolving preeclampsia dc home today should fu office this week for eval of bp Objective Data Vital Signs: Vital Signs - 24 hr Temp Pulse Resp BP Pulse Ox 09/26/24 07:30 97.8 F 77 20 152/84 98 09/26/24 05:40 97.9 F 89 18 139/84 98 09/25/24 23:40 97.7 F 78 18 128/73 97 09/25/24 18:18 98.2 F 111 H 20 126/78 99 09/25/24 16:20 91 H 20 137/89 99 09/25/24 15:39 112 H 18 120/65 99 09/25/24 12:39 103 H 18 118/73 98 09/25/24 09:53 98.4 F 81 18 144/88 100 Pain Assessment - Last Documented Pain Intensity [Anterior/ 8 Posterior] Pain Intensity 8 Pain Scale Used 0-10 Pain Scale Intake and Output: Intake & Output 09/23/24 09/24/24 09/25/24 09/26/24 11:59 11:59 11:59 11:59 Intake Total 300 3248 2000 Output Total 1400 6675 1000 Balance -1100 -3427 1000 Weight 83.461 kg Lab Results: Lab Results-Last 24 Hours 09/23/24 Range/Units Unknown Ur Uric Acid 13.0 (Not Estab.) mg/dL Assessment/Plan (1) Pre-eclampsia affecting with pre-existing hypertension, delivered, current hospitalization Current Visit: Yes Status: Acute Code(s): [id number] - (2) growth restriction Current Visit: Yes Status: Acute (3) Seizure disorder Current Visit: No Status: Acute Code(s): G40.909 - EPILEPSY, UNSP, NOT INTRACTABLE, WITHOUT STATUS EPILEPTICUS (4) Non-compliance Current Visit: Yes Status: Acute Code(s): Z91.199 - PT NONCOMPL WITH OTHER MED TRTMT AND REGIMEN D/T UNSP REASON (5) Previous delivery affecting Current Visit: Yes Status: Acute Code(s): O34.219 - MATERNAL CARE FOR UNSP TYPE SCAR FROM PREVIOUS DEL (6) delivery Current Visit: Yes Status: Acute Code(s): O60.10X0 - LABOR W DELIVERY, UNSP TRIMESTER, UNSP
[2024-09-26 09:23] VITALS: BP 139/86; RESP 18; O2SAT 99
--- NOTE | 2024-09-26 09:24 | PCM.DS ---
Discharge Summary Date of Admission: 09/24/24 05:20 Admitting Physician: RUSTY COHEN DO Primary Care Provider: SHALINI MALAVE Allergies Allergies naproxen Allergy (Severe, Verified 09/24/24 02:21) Difficulty Breathing "deadly" hydromorphone HCl [From Dilaudid] Allergy (Mild, Verified 09/11/24 12:37) propoxyphene napsylate [From Darvocet-N 100] Allergy (Mild, Verified 09/11/24 12:37) sumatriptan [From Imitrex] Allergy (Mild, Verified 09/11/24 12:37) sumatriptan succinate [From Imitrex] Allergy (Mild, Verified 09/11/24 12:37) topiramate [From Topamax] Allergy (Mild, Verified 09/11/24 12:37) pregabalin [From Lyrica] Allergy (Verified 06/25/24 18:11) ondansetron HCl [From Zofran] Adverse Reaction (Mild, Verified 09/24/24 02:22) SEVERE ANXIETY Hospital Summary - Hospital Course Hospital Course: 34 yo was admitted on sep 23 for severe preeclampsia and and severe iugr at 5th percentile growth at 36 4/7 wks gestation where mfm was called and determin ed to proceed with delivery at this time for worsening preeclampsia. pt was started on magnesium sulfate on sep 23 and had been on labetolol 200mg tid and was increased to 300 tid. pt underwent csection on sep 24 in am and delivered live baby girl without complication and continued mgso4 for the following 24 hrs. pt during postop period did well however bp remained elevated and was started on labetolol 200 tid however needed to increase to 300 tid due to rising bp. at this time labs reviewed and stable, incision c/d/intact and at this time stable for discharge with fu in office this week for bp check. all questions answered to her satisfaction and was given percocet for pain management 15 tabs. pt with hx of seizure disorder on keppra and depression with anxiety on paxil. - Vitals & Intake/Output Vital Signs: Vital Signs Temperature 97.8 F 09/26/24 07:30 Pulse Rate 77 09/26/24 07:30 Respiratory Rate 20 09/26/24 07:30 Blood Pressure 152/84 09/26/24 07:30 O2 Sat by Pulse Oximetry 98 09/26/24 07:30 Intake & Output: Intake & Output 09/23/24 09/24/24 09/25/24 09/26/24 11:59 11:59 11:59 11:59 Intake Total 300 3248 2000 Output Total 1400 6667 1000 Balance -1100 -3427 1000 Weight 83.461 kg - Lab Result Diagrams: 09/25/24 03:05 09/23/24 16:20 Lab Results-Last 24 Hrs: Lab Results-Last 24 Hours 09/23/24 Range/Units Unknown Ur Uric Acid 13.0 (Not Estab.) mg/dL Micro Results-Entire Visit: Microbiology 09/24/24 06:45 Urine Culture - Final Catherized NO GROWTH - Procedures and Test Procedures and Tests throughout Hospitalization: Therapy Orders & Screens 09/24/24 11:39 Oxygen Nasal Cannula 3 lpm Comment: IF O2 IS <93% AND NOTIFY [employer] Diagnosis: POST OP C/S 09/24/24 13:07 Standby STAT Comment: Diagnosis: POST OP C/S Final Diagnosis/Problem List - Final Discharge Diagnosis/Problem (1) Pre-eclampsia affecting with pre-existing hypertension, delivered, current hospitalization Current Visit: Yes Status: Acute Code(s): [id number] - (2) growth restriction Current Visit: Yes Status: Acute (3) Seizure disorder Current Visit: No Status: Acute Code(s): G40.909 - EPILEPSY, UNSP, NOT INTRACTABLE, WITHOUT STATUS EPILEPTICUS (4) Non-compliance Current Visit: Yes Status: Acute Code(s): Z91.199 - PT NONCOMPL WITH OTHER MED TRTMT AND REGIMEN D/T UNSP REASON (5) Previous delivery affecting Current Visit: Yes Status: Acute Code(s): O34.219 - MATERNAL CARE FOR UNSP TYPE SCAR FROM PREVIOUS DEL (6) delivery Current Visit: Yes Status: Acute Code(s): O60.10X0 - LABOR W DELIVERY, UNSP TRIMESTER, UNSP - Discharge Disposition: Home, Self-Care Condition: Stable Prescriptions: New Oxycodone HCl/Acetaminophen [Percocet 5-325 mg Tablet] 1 each PO Q6HPRN PRN #15 tablet MDD 4 PRN Reason: Pain No Action Venlafaxine HCl [Venlafaxine HCl ER] 150 mg PO DAILY 30 Days #30 cap Venlafaxine HCl 75 mg PO HS Pnv No.95/Ferrous Fum/Folic AC [ Vitamins Tablet] 1 tab PO DAILY Levetiracetam [Keppra] 500 mg PO BID Paroxetine HCl 20 mg [Paxil 20 MG] 20 mg PO EVENING MEAL Labetalol HCl 100 mg [Trandate 100 MG] 200 mg PO TID Additional Instructions: INCREASE YOUR LABETALOL TO 200 MG THREE TIMES A DAY. Follow up with: SHALINI MALAVE NP [Primary Care Provider] - RUSTY COHEN DO [ACTIVE STAFF] - 10/01/24 1:00 pm Forms: OB Outpatient Discharge Inst.
[2024-09-26] MEDS: Adacel Vial IM ONE (11:00)
--- NOTE | 2024-09-28 14:20 | OP ---
SURGERY DATE/TIME: 09/24/2024 [id number] PREOPERATIVE DIAGNOSIS: Intrauterine at 36 weeks and 5 days' gestation with severe pre-eclampsia, with severe intrauterine growth restriction with history of previous section, declined trial of labor. POSTOPERATIVE DIAGNOSIS: Intrauterine at 36 weeks and 5 days' gestation with severe pre-eclampsia, with severe intrauterine growth restriction with history of previous section, declined trial of labor, with nuchal cord x2. PROCEDURE: Repeat section, low flap transverse uterine incision, and Pfannenstiel skin incision. SURGEON: Bong Mckeon DO. APPLICATIONS PROJECT MANAGER: Adrianna Singletary. ANESTHESIA: Spinal. ESTIMATED BLOOD LOSS: 615 mL. COMPLICATIONS: None. DESCRIPTION OF PROCEDURE AND FINDINGS: The risks, benefit, indications, and alternatives of the procedure were reviewed with the patient prior to the procedure. Patient understood the risks of infection, bleeding, bowel injury, bladder injury, ureteral injury, pelvic infection, thromboembolic disorder associated with this surgery and desires to have this surgery as a possible means to alleviate her current medical condition. At this point, patient was taken to the operating room where her spinal anesthesia was found to be adequate. She was then prepared and draped in a normal sterile fashion in the dorsal supine position with a leftward tilt. A Pfannensteil skin incision was made with a scalpel and carried through to the underlying layer of the fascia with a Bovie. The fascia was then incised in the midline. Then, the incision was extended laterally with the Parsons scissors. The superior aspect of the fascial incision was then grasped between Karina clamps, elevated, and the underlying rectus muscles were dissected out bluntly. Attention was then turned to the inferior aspect of this incision which in a similar fashion was grasped, tented up with the Karina clamps, and the rectus muscles were dissected off bluntly. The rectus muscles were then in the midline, the peritoneum identified, tented up, and entered sharply with the Metzenbaum scissors. The peritoneal incision was then extended superiorly and inferiorly with good visualization of the bladder. The bladder blade was then inserted and the vesicouterine peritoneum identified, grasped with the pickups, and entered sharply with the Metzenbaum scissors. This incision was then extended laterally and the bladder flap created digitally. The bladder blade was then reinserted and the lower uterine segment, incised in a transverse fashion with a scalpel. The uterine incision was then extended laterally with the bandage scissors. The bladder blade was then removed, and the infant's head was delivered atraumatically with the noted nuchal cord x2, which was reduced. The nose and mouth were suctioned with the bulb suction and the cord clamped and cut. The was handed off to the waiting nurses. The placenta was then removed manually. The uterus was exteriorized and cleared of all clots and debris. The uterine incision was repaired with 1-0 chromic in a running locked fashion. A second layer of the same suture was used to obtain excellent hemostasis. The uterus was then returned to the abdomen, and the gutters were cleared of all clots. The peritoneum and muscles were closed in an interrupted fashion using 2-0 chromic suture. The fascia was reapproximated with 0 Vicryl in a running fashion. The subcutaneous layer was closed with 3-0 Vicryl suture, and the skin was closed with absorbable nancy called Insorb. The patient tolerated the procedure well. Sponge, lap, needle, and instrument counts were correct x2. The patient was then taken to the recovery room in stable condition. The patient delivered a live baby girl without complication.
== END 2024-09-26 12:15 | disposition home or self-care (01) | DRG 788 ==
LOC: OB.NST 13:44 → OB 15:53 → OB.NST 15:53 → OB 16:02 → OBSVTOIN 09-24 05:20
PROVIDERS: ADMIT Obstetrics & Gynecology; ATTEND Obstetrics & Gynecology
PROC: 10D00Z1 Extraction of Products of Conception, Low, Open Approach (ICD-10-PCS; principal; 2024-09-24)
DX: O14.14 Severe pre-eclampsia complicating childbirth (principal); O36.5990 Maternal care for other known or suspected poor fetal growth, unspecified trimester, not applicable or unspecified; Z59.86 Financial insecurity; Z3A.36 36 weeks gestation of pregnancy; Z37.0 Single live birth; G40.909 Epilepsy, unspecified, not intractable, without status epilepticus; Z91.199 Patient's noncompliance with other medical treatment and regimen due to unspecified reason; O34.219 Maternal care for unspecified type scar from previous cesarean delivery; O60.1 Preterm labor with preterm delivery
CPT/HCPCS: 36415; 59025; 59426; 64488; 76816; 76937; 80053; 80307; 81001; 81002; 82570; 83735; 84156; 84560; 85025; 85610; 85730; 86850; 86900; 86901; 86922; 87086; 87340; 90715; 94799; 96372; 99140; 99213; G0378; J0666; J0690; J0702; J2250; J2274; J2371; J2550; J2590; J3010; A9270-GY

== ENCOUNTER 2024-11-10 07:44 | Day surgery (SDC) | payer OTHER ==
[2024-11-10] MEDS ORDERED: Pepcid 20 MG VIAL IV ONE (07:51)
[2024-11-10] MEDS ORDERED: Transderm Scop 1.5MG Patch ONE (07:51)
[2024-11-10] MEDS ORDERED: Lactated Ringers 1,000 ML IV ONE ×2 (07:51→10:15)
[2024-11-10] MEDS ORDERED: Transderm Scop 1.5MG Patch TOP ONE (07:51)
[2024-11-10] MEDS ORDERED: Reglan 10 MG/2 ML ONE (07:51)
[2024-11-10] MEDS: CEFAZOLIN 2 GM/100 ML NaCl 2 GM/100 ML IVPB IV SCH (07:54)
[2024-11-10] MEDS: Pepcid 20 MG VIAL IV ONE (07:55)
[2024-11-10] MEDS: Reglan 10 MG/2 ML IV ONE (07:55)
[2024-11-10] MEDS: Lactated Ringers 1,000 ML IV ONE (07:56)
[2024-11-10 07:58] LABS: HCG URINE TEST NEGATIVE (NEGATIVE)
[2024-11-10 08:19] VITALS: RESP 16
[2024-11-10] MEDS ORDERED: Versed 2 MG/2 ML Injection ONE ×2 (09:03→09:13)
[2024-11-10] MEDS ORDERED: propofoL IV ONE (09:13)
[2024-11-10] MEDS ORDERED: Xylocaine-Mpf 2% 5 Ml Vial ONE (09:13)
[2024-11-10] MEDS ORDERED: SUBLIMAZE 100 MCG/2 ML ONE ×3 (09:14→10:48)
[2024-11-10] MEDS ORDERED: Sodium Chloride 0.9% 1000 ML 1,000 ML ONE (09:16)
[2024-11-10] MEDS ORDERED: Sensorcaine 0.25% 10 ML ONE (09:16)
[2024-11-10] MEDS ORDERED: dexAMETHasone sodium phosphate ONE (09:19)
[2024-11-10] MEDS ORDERED: Zofran 4 MG/2 ML VIAL ONE (09:19)
[2024-11-10] MEDS ORDERED: TRANDATE 20 MG/4 ML SYRINGE IV ONE (10:05)
[2024-11-10 10:54] LABS: Appearance Clear (Clear); Bacteria None Seen /HPF (None Seen); Bilirubin Negative (Negative); Blood Negative (Negative); Epithelial Cells None Seen /HPF (None Seen); Glucose, Urine Negative (Negative); Hyaline Casts NONE SEEN /LPF (0-2); Ketones Negative (Negative); Leukocyte Esterase Negative (Negative); Nitrite Negative (Negative); Protein,Urine Dip Negative (Negative); RBC 0-2 /HPF (0-5); Urobilinogen 0.2 mg/dL (0.2); WBC 0-2 /HPF (0-5)
[2024-11-10] MEDS ORDERED: TYLENOL EXTRA STRENGTH 500 MG PO ONE (10:59)
[2024-11-10 11:37] VITALS: BP 147/86; PULSE 66; TEMP 98; O2SAT 95
--- NOTE | 2024-11-11 08:29 | OP ---
SURGERY DATE/TIME: 11/10/2024 [id number] PREOPERATIVE DIAGNOSIS: Multiparity desiring tubal sterilization. POSTOPERATIVE DIAGNOSES: 1) Multiparity desiring tubal sterilization. 2) Omental adhesions located in the lower pelvic region. PROCEDURE: Laparoscopic tubal sterilization via bilateral salpingectomy with lysis of adhesions. SURGEON: Bong Mckeon D.O. GRAVITY PROSPECTING OBSERVER: Adrianna Singletary. ANESTHESIA: General. ESTIMATED BLOOD LOSS: Minimal. COMPLICATIONS: None. FINDINGS: The risks, benefits, indications, and alternatives of the procedure were reviewed with the patient prior to the procedure. Patient understood the risk of infection, bleeding, bowel injury, bladder injury, ureteral injury, pelvic infection, thromboembolic disorder, possible and ectopic in the future that could possibly occur where all other forms of control had been discussed with the patient prior to the procedure. However, desires to have this procedure as a possible means for her control measure. DESCRIPTION OF PROCEDURE AND FINDINGS: From this point, patient was taken to the operating room, placed in a supine position where she was prepped and draped in the usual sterile fashion. A 5 mm skin incision was made in the umbilical fold where a 5 mm trocar and sleeve were advanced under direct visualization where pneumoperitoneum was obtained with 4 L of CO2 gas. An additional incision was made on the left middle quadrant region where a 5 mm incision was made and a 5 mm trocar and sleeve were advanced under direct visualization and an additional third incision was made, 2 cm above the symphysis pubis where an 8 mm incision was made and 8 mm trocar and sleeve were advanced under direct visualization. A survey of the patient's pelvis revealed her to have omental adhesions located between the uterus and the lower bladder where the adhesions were taken down using the LigaSure and hemostasis was obtained. From this point, the right fallopian tube was identified. The right fallopian tube was elevated using a grasper and the LigaSure was used in place over the right mesosalpinx where it was clamped, coagulated and cut and taken down to the cornual region and was removed without complication. Hemostasis was obtained. The same procedure was performed on the left side where the left fallopian tube was elevated and the LigaSure was used in place over the left mesosalpinx, taken down toward the cornual region where it too was excised in a similar fashion and hemostasis was obtained. From this point, there was minimal bleeding that was noted from the left ovary and the bipolar instrument was used to coagulate the small bleeding that was noted on the left side and hemostasis was obtained. From this point, all instruments were removed from the patient's abdominal regions, and the incisions were closed with 4-0 Monocryl suture with subsequent Dermabond. Patient was then taken out of anesthesia and was then taken to the recovery room in stable condition. All instruments and laps were accounted for x2.
== END 2024-11-10 12:10 | disposition home or self-care (01) ==
LOC: SDC 07:44
PROVIDERS: ATTEND Obstetrics & Gynecology
DX: Z30.2 Encounter for sterilization (principal); N73.6 Female pelvic peritoneal adhesions (postinfective)
CPT/HCPCS: 58660; 58661; 81001; 81025; 93005; J0690; J1100; J2250; J2405; J2704; J3010; A9270-GY